=== PATIENT | male | born 1970 | race Caucasian/White ===

== ENCOUNTER 2018-05-06 15:15 | Emergency (ER) | payer MEDICARE, SELFPAY ==
[2018-05-06 15:16] VITALS: BP 155/80; PULSE 93; RESP 15; TEMP 36.7; O2SAT 90; BMI 34.4
[2018-05-06 15:27] VITALS: O2SAT 91
--- NOTE | 2018-05-06 15:42 | RAD_ITS ---
STUDY: X-RAY CHEST REASON FOR EXAM: Male, 48 years old. Shortness of breath TECHNIQUE: Frontal and lateral views of the chest were obtained. COMPARISON: April 15, 2015 FINDINGS: The lungs are adequately aerated. There are patchy airspace opacities in the right lung base. There is no demonstrated pleural abnormality. The cardiac silhouette is normal in size. There is fullness of the right hilum. Normal visualized pulmonary arteries. There is atherosclerotic tortuosity of the thoracic aorta. There are diffuse degenerative changes of the visualized spine. The visualized ribs, clavicles, and shoulders are unremarkable. There is no demonstrated abnormality of the visualized upper abdomen. RAD/Chest PA and Lateral IMPRESSION: There is focal consolidation in the right middle lobe, worrisome for pneumonia. There is no obvious pleural effusion. There is fullness of the right hilum, possible lymph nodes. Electronically Signed: Nicole Garza MD at 16:21 EDT Tel Direct: [phone], Service support ,
--- NOTE | 2018-05-06 15:42 | EKG12_ITS ---
Test Reason : COUGH Blood Pressure : / mmHG Vent. Rate : 082 BPM Atrial Rate : 082 BPM P-R Int : 134 ms QRS Dur : 088 ms QT Int : 406 ms P-R-T Axes : 056 075 059 degrees QTc Int : 474 ms Sinus rhythm with occasional Premature ventricular complexes Otherwise normal ECG Confirmed by FREIDA GOEL, JAMILAH ([id number]), editor news FARIDA BUSTILLO ([id number]) on 05/11/2018 3:41:20 PM Referred By: MANE Confirmed By:JAMILAH GUAN MD
--- NOTE | 2018-05-06 15:45 | ED.VISSUMM ---
- ER Visit Summary Date of Service: 05/06/18 Chief Complaint: Cough and chest cold History of Present Illness: The patient is a 48 M who presents for 2 days of a productive cough and chest cold. Patient has had gradually worsening cough with chest congestion and sweats at home. He is complaining of generalized weakness. He denies any chest pain, overt shortness of breath, abdominal pain, nausea or vomiting, diarrhea, urinary symptoms, myalgias, or other complaints. Patient is tried Tussend and TheraFlu at home without relief. He has a history of pneumonia 3 years ago. He is a heavy smoker. He has a history of schizophrenia but no other medical problems including no coronary artery disease, CHF, COPD, hypertension or diabetes. Physical Examination: Vital signs: afebrile, hemodynamically stable, no hypoxia on room air General: well nourished, well developed, in no distress, speech is slow and slurred (patient's baseline per ) Skin: warm, moist, no rash, no pallor HEENT: normocephalic and atraumatic; PERRL, EOMI, moist mucous membranes Cardiovascular: regular rate and rhythm without murmurs, no peripheral edema, 2+ pulses all distal extremities Respiratory: No increased work of breathing, moist cough, lungs show diffuse inspiratory and expiratory wheezing Abdominal: Abdomen is soft, nontender with normoactive bowel sounds, no guarding or rebound, no masses MSK: Moves all extremities, no deformities, normal strength Neuro: Awake and alert, oriented ?4. No facial droop, sensation and motor function intact and symmetric Test Results: Clinical Impression(s) from Imaging Studies Chest X-Ray 05/06/18 15:42 IMPRESSION: There is focal consolidation in the right middle lobe, worrisome for pneumonia. There is no obvious pleural effusion. There is fullness of the right hilum, possible lymph nodes. Electronically Signed: Nicole Garza MD at 16:21 EDT Tel Direct: [phone], Service support , Medications Given Discontinued Medications Albuterol Sulfate (Ventolin Aerosols) 2.5 mg INHALATION Q20M ALLIE Stop: 05/06/18 16:26 Last Admin: 05/06/18 15:58 Dose: Not Given Admin: 05/06/18 15:58 Dose: 2.5 mg Admin: 05/06/18 15:58 Dose: 2.5 mg Albuterol/Ipratropium (Duoneb) 3 ml INHALATION X1 ONE Stop: 05/06/18 15:43 Last Admin: 05/06/18 15:58 Dose: 3 ml Azithromycin (Zithromax) 500 mg PO X1 ONE Stop: 05/06/18 16:49 Last Admin: 05/06/18 17:08 Dose: 500 mg Sodium Chloride () 1,000 mls @ 999 mls/hr IV .Q1H1M ONE Stop: 05/06/18 16:42 Last Admin: 05/06/18 16:07 Dose: 999 mls/hr Prednisone () 60 mg PO X1 ONE Stop: 05/06/18 15:43 Last Admin: 05/06/18 16:07 Dose: 60 mg Emergency Department Course and Treatment: Patient has a moist cough and diffuse inspiratory and expiratory wheezing. Given his history of very heavy smoking, this may be baseline for him or undiagnosed COPD. Patient was given prednisone and a series of breathing treatments. Chest x-ray performed. Patient had a right middle lobe pneumonia. EKG showed a sinus rhythm without ischemia or ectopy, but did have a prolonged QTc interval. Patient was reevaluated after the breathing treatments and had improvement in his breath sounds. He was satting 92% on room air and felt better. He wanted to go home rather than be admitted for further treatment of pneumonia. He was placed on a prednisone burst, prescribed albuterol inhaler, and placed on azithromycin. He is to return if he is not having improvement at home. Discharged home in improved condition. Treatment Plan: [] Disposition: [] Impression: RML CAP; reactive airway disease with suspicion for undiagnosed COPD This note was generated with [employer] dictation software. It may contain incorrect words, spelling, and punctuation that were not noted in review of the chart prior to signing ED Disposition - Plan for ED Patient: Disposition: Home or Assisted Living Chief Complaint: Cough Instructions: ED Reactive Airway Disease, ED Pneumonia Adult Prescriptions: RX: Albuterol Inhaler [Ventolin Hfa] 2 puff INHALATION Q4H PRN PRN #1 inhaler PRN Reason: Wheezing RX: Azithromycin [Zithromax] 250 mg PO DAILY #4 tab RX: Prednisone [Deltasone] 40 mg PO DAILY #10 tab Referrals: Care Physician,No Primary [Primary Care Provider] - Doctor,Your [STAFF PHYSICIAN] - 3-5 Days if not improving Additional Instructions: Take the antibiotic as prescribed, with the first dose tomorrow. Take the prednisone starting tomorrow as well. Use the albuterol inhaler as needed for wheezing. If you are not having improvement at home, or if you have worsening shortness of breath, fever, or any other concerns, return immediately to the emergency department for another evaluation.
[2018-05-06] MEDS: Ipratropium/Albuterol Sulfate 3 ML AMPUL.NEB INHALATION (15:58)
[2018-05-06] MEDS: Albuterol 2.5 MG/3 ML VIAL.NEB. INHALATION ×2 (15:58)
[2018-05-06 15:59] VITALS: PULSE 83; RESP 21
[2018-05-06] MEDS: 0.9% Normal Saline 1,000 ML 999 ML IV (16:07)
[2018-05-06] MEDS: predniSONE 20 MG Tablet 60 MG PO (16:07)
--- NOTE | 2018-05-06 16:26 | ED.DCSUM_ITS ---
- ER Visit Summary Date of Service: 05/06/18 Chief Complaint: Cough and chest cold History of Present Illness: The patient is a 48 M who presents for 2 days of a productive cough and chest cold. Patient has had gradually worsening cough with chest congestion and sweats at home. He is complaining of generalized weakness. He denies any chest pain, overt shortness of breath, abdominal pain, nausea or vomiting, diarrhea, urinary symptoms, myalgias, or other complaints. Patient is tried Tussend and TheraFlu at home without relief. He has a history of pneumonia 3 years ago. He is a heavy smoker. He has a history of schizophrenia but no other medical problems including no coronary artery disease , CHF, COPD, hypertension or diabetes. Physical Examination: Vital signs: afebrile, hemodynamically stable, no hypoxia on room air General: well nourished, well developed, in no distress, speech is slow and slurred (patient's baseline per ) Skin: warm, moist, no rash, no pallor HEENT: normocephalic and atraumatic; PERRL, EOMI, moist mucous membranes Cardiovascular: regular rate and rhythm without murmurs, no peripheral edema, 2+ pulses all distal extremities Respiratory: No increased work of breathing, moist cough, lungs show diffuse inspiratory and expiratory wheezing Abdominal: Abdomen is soft, nontender with normoactive bowel sounds, no guarding or rebound, no masses MSK: Moves all extremities, no deformities, normal strength Neuro: Awake and alert, oriented ?4. No facial droop, sensation and motor function intact and symmetric Test Results: Clinical Impression(s) from Imaging Studies Chest X-Ray 05/06/18 15:42 IMPRESSION: There is focal consolidation in the right middle lobe, worrisome for pneumonia. There is no obvious pleural effusion. There is fullness of the right hilum, possible lymph nodes. Electronically Signed: Nicole Garza MD at 16:21 EDT Tel Direct: [phone], Service support , Medications Given Discontinued Medications Albuterol Sulfate (Ventolin Aerosols) 2.5 mg INHALATION Q20M ALLIE Stop: 05/06/18 16:26 Last Admin: 05/06/18 15:58 Dose: Not Given Admin: 05/06/18 15:58 Dose: 2.5 mg Admin: 05/06/18 15:58 Dose: 2.5 mg Albuterol/Ipratropium (Duoneb) 3 ml INHALATION X1 ONE Stop: 05/06/18 15:43 Last Admin: 05/06/18 15:58 Dose: 3 ml Azithromycin (Zithromax) 500 mg PO X1 ONE Stop: 05/06/18 16:49 Last Admin: 05/06/18 17:08 Dose: 500 mg Sodium Chloride () 1,000 mls @ 999 mls/hr IV .Q1H1M ONE Stop: 05/06/18 16:42 Last Admin: 05/06/18 16:07 Dose: 999 mls/hr Prednisone () 60 mg PO X1 ONE Stop: 05/06/18 15:43 Last Admin: 05/06/18 16:07 Dose: 60 mg Emergency Department Course and Treatment: Patient has a moist cough and diffuse inspiratory and expiratory wheezing. Given his history of very heavy smoking, this may be baseline for him or undiagnosed COPD. Patient was given prednisone and a series of breathing treatments. Chest x-ray performed. Patient had a right middle lobe pneumonia. EKG showed a sinus rhythm without ischemia or ectopy, but did have a prolonged QTc interval. Patient was reevaluated after the breathing treatments and had improvement in his breath sounds. He was satting 92% on room air and felt better. He wanted to go home rather than be admitted for further treatment of pneumonia. He was placed on a prednisone burst, prescribed albuterol inhaler, and placed on azithromycin. He is to return if he is not having improvement at home. Discharged home in improved condition. Treatment Plan: [] Disposition: [] Impression: RML CAP; reactive airway disease with suspicion for undiagnosed COPD This note was generated with [employer] dictation software. It may contain incorrect words, spelling, and punctuation that were not noted in review of the chart prior to signing ED Disposition - Plan for ED Patient: Disposition: Home or Assisted Living Chief Complaint: Cough Instructions: ED Reactive Airway Disease, ED Pneumonia Adult Prescriptions: RX: Albuterol Inhaler [Ventolin Hfa] 2 puff INHALATION Q4H PRN PRN #1 inhaler PRN Reason: Wheezing RX: Azithromycin [Zithromax] 250 mg PO DAILY #4 tab RX: Prednisone [Deltasone] 40 mg PO DAILY #10 tab Referrals: Care Physician,No Primary [Primary Care Provider] - Doctor,Your [STAFF PHYSICIAN] - 3-5 Days if not improving Additional Instructions: Take the antibiotic as prescribed, with the first dose tomorrow. Take the prednisone starting tomorrow as well. Use the albuterol inhaler as needed for wheezing. If you are not having improvement at home, or if you have worsening shortness of breath, fever, or any other concerns, return immediately to the e mergency department for another evaluation.
--- NOTE | 2018-05-06 16:53 | ED.DEP ---
ED Disposition - Plan for ED Patient: Disposition: Home or Assisted Living Chief Complaint: Cough Instructions: ED Reactive Airway Disease, ED Pneumonia Adult Prescriptions: Albuterol Inhaler [Ventolin Hfa] 2 puff INHALATION Q4H PRN PRN #1 inhaler PRN Reason: Wheezing Azithromycin [Zithromax] 250 mg PO DAILY #4 tab Prednisone [Deltasone] 40 mg PO DAILY #10 tab Referrals: Care Physician,No Primary [Primary Care Provider] - Doctor,Your [STAFF PHYSICIAN] - 3-5 Days if not improving Additional Instructions: Take the antibiotic as prescribed, with the first dose tomorrow. Take the prednisone starting tomorrow as well. Use the albuterol inhaler as needed for wheezing. If you are not having improvement at home, or if you have worsening shortness of breath, fever, or any other concerns, return immediately to the emergency department for another evaluation.
[2018-05-06 16:54] VITALS: BP 173/83; PULSE 80; RESP 24; O2SAT 92
[2018-05-06] MEDS: Azithromycin 250 MG Tablet 500 MG PO (17:08)
--- NOTE | 2018-05-07 10:23 | CM.ED ---
ED CALLBACK: Follow-up call placed to patient with no answer. No option for voicemail. Will reattempt call as time allows.
== END 2018-05-06 17:09 | disposition home or self-care (01) ==
PROVIDERS: Emergency Provider Emergency Medicine
DX: J18.9 Pneumonia, unspecified organism (principal); J45.909 Unspecified asthma, uncomplicated; E66.9 Obesity, unspecified; F20.9 Schizophrenia, unspecified; Z79.899 Other long term (current) drug therapy; Z72.0 Tobacco use
CPT/HCPCS: 71046; 93005; 94640; 96360; 99285; J7030; A4216

== ENCOUNTER 2020-03-22 15:56 | Inpatient (IN) | payer MEDICARE, SELFPAY ==
[2020-03-22] VITALS (25 sets, daily range): BP systolic 92–192; BP diastolic 44–119; PULSE 54–106; RESP 12–34; TEMP 36.7–37.5; O2SAT 86–100; BMI 42.5; BMI 48.8
--- NOTE | 2020-03-22 16:03 | EKG12_ITS ---
Test Reason : SOB Blood Pressure : / mmHG Vent. Rate : 108 BPM Atrial Rate : 108 BPM P-R Int : 138 ms QRS Dur : 094 ms QT Int : 344 ms P-R-T Axes : 072 136 029 degrees QTc Int : 460 ms Sinus tachycardia Right atrial enlargement Right axis deviation Pulmonary disease pattern Incomplete right bundle branch block Right ventricular hypertrophy Abnormal ECG Confirmed by MIRA GOEL, LIZZETH ([id number]), book editor DENNY HANEY ([id number]) on 03/24/2020 11:29:26 A M Referred By: GENIA Confirmed By:MELISSA MEYERS MD
[2020-03-22] MEDS: Ipratropium/Albuterol Sulfate 3 ML AMPUL.NEB INHALATION ×2 (16:24→23:47)
[2020-03-22] MEDS: LORazepam 2 MG/ML Syringe IV (16:30)
[2020-03-22] MEDS: MethylPREDNISolone 125 MG/2 ML Vial IV (16:30)
[2020-03-22 16:44] LABS: Absolute Lymphocyte Count 1.38 X10^3/uL (0.83-4.51); Absolute Neutrophil Count 8.6 X10^3/uL (2.0-7.7); Basophil# 0.03 X10^3/uL; Basophil% 0.3 % (0-1); Eosinophil# 0.17 X10^3/uL; Eosinophils% 1.5 % (0-5); Hematocrit 51.6 % (40-54); Hemoglobin 17.5 g/dL (13.0-16.5); Lymphocyte # 1.38 X10^3/ul (4.0); Mean Corp Hgb Conc 33.9 g/dL (32-36); Mean Corpuscular Hgb 32.3 pg (27.0-32.0); Mean Corpuscular Volume 95.4 fL (80-94); Mean Platelet Vol. 9.7 fl (6.2-12.0); Monocyte# 1.24 X10^3/uL; Monocyte% 10.8 % (0-10); NRBC Flagged by Analyzer 0 % (0-5); Neutrophil # 8.61 X10^3/uL (2.7-7.7); Neutrophil % 75.1 % (47-70); Platelet Count 327 K/mm3 (150-450); RBC Distribution Width CV 14.2 % (11.6-14.6); RBC Distribution Width SD 50.2 fl (35.1-43.9); Red Blood Count 5.41 M/mm3 (4.6-6.2); White Blood Count 11.5 K/mm3 (4.4-11.0)
--- NOTE | 2020-03-22 16:50 | RAD_ITS ---
STUDY: X-RAY CHEST REASON FOR EXAM: Male, 49 years old. DIFFICULTY BREATHING FOR 2 WEEKS, AUDIBLE WHEEZING TECHNIQUE: Single AP portable view of the chest. COMPARISON: 05/06/2018. FINDINGS: No pleural effusion or pulmonary consolidation. There is mild central pulmonary venous congestion. There is mild cardiac enlargement. Normal mediastinum and belkis. Soft tissues and bony structures are unremarkable. RAD/Chest 1 View (Portable) IMPRESSION: Mild pulmonary venous congestion. Cardiac enlargement. Electronically Signed: Isabella Castrejon MD at 17:39 EDT Tel , Service support ,
[2020-03-22 16:57] LABS: Alcohol, Blood (Medical)-Serum < 3.0 mg/dL
[2020-03-22 16:59] LABS: ALB/GLOB Ratio 0.8 RATIO (0.9-2.4); AST(SGOT) 18 U/L (15-37); Alanine Aminotransfer ALT/SGPT 16 U/L (16-61); Albumin, Serum 3.2 g/dL (3.2-5.0); Alkaline Phosphatase 92 U/L (45-117); Anion Gap 4 (5-15); BUN 6 mg/dL (7-18); BUN/Creat Ratio 10.4 RATIO (10-20); Calcium,Total 8.2 mg/dL (8.5-10.1); Chloride 84 mmol/L (98-107); Creatinine, Serum 0.58 mg/dL (0.70-1.30); EST Glomerular Filtration Rate 159 mL/min (>60); Est Glom Filt Rate - Afr Amer 192 mL/min (>60); Estimated Creatinine Clearance 164.09 ml/min; Globulin 4.2 g/dL (2.2-4.2); Glucose 132 mg/dL (74-106); Potassium 4.3 mmol/L (3.5-5.1); Protein, Total 7.4 g/dL (6.4-8.2); Sodium Level 124 mmol/L (136-145)
[2020-03-22 17:00] LABS: Allen Test Positive; Base Excess 11 mmol/L (-2 to +2); Bicarbonate 38.5 mmol/L (22-26); Blood Gas Specimen Type ART; FI02 55; O2 Delivery Device BiPAP; PO2 60 mmHG (75-100); SITE R Radial; SO2 83 % (95-99); Total Carbon Dioxide 41 mmol/L; pCO2 93.5 mmHg (35-45); pH 7.22 (7.35-7.45)
[2020-03-22 17:03] LABS: Lactic Acid 1.6 mmol/L (0.4-1.9)
[2020-03-22 17:10] LABS: Phenytoin (Dilantin) Level < 0.4 mL (10.0-20.0)
[2020-03-22 17:17] LABS: Bacteria 0 SEEN /hpf (None Seen); Mucous, Urine 0 SEEN /hpf (<or=2+); Red Blood Cells-Urine 0 SEEN /hpf (0-5); Squamous Epithelial Cells - UA 0 SEEN /hpf (0-5); White Blood Cells 0 SEEN /hpf (0-5)
--- NOTE | 2020-03-22 17:17 | ED.DCSUM_ITS ---
- ER Visit Summary Date of Service: 03/22/20 Chief Complaint: Altered mental status History of Present Illness: The patient is a 49 M who presents by EMS for altered mental status. History was obtained from family and from EMS as the patient is confused. He has been short of breath for the past week and would not go to a doctor. He is a heavy smoker and has a history of pneumonia. No recent chest pain complaints. No known history of blood clots. No alcohol or regular drug use. He does have a history of schizophrenia and seizures. Takes Dilantin among his other medications. Physical Examination: Afebrile. Heart rate 106, blood pressure 167/85, pulse ox 86% on nasal cannula. Patient is alert and will track me with his eyes, but when I asked him his name, he only mumbles. He does not seem to follow commands reliably. Head and neck atraumatic. Heart tachycardic but regular. Lungs diminished in all campuzano. Abdomen soft and nontender. Extremities nontender with no significant edema. Skin appears normal. Test Results: EKG shows sinus rhythm at a rate of 108. No sign of ischemia or infarction pattern. White count 11.5, hemoglobin 17.5, sodium 124, chloride 84, CO2 36, glucose 132, BUN 6, creatinine 0.58. Coags pending. Urinalysis pending. Troponin negative. Lactate 1.6. Cultures pending. COVID-19 test pending. pH 7.22, CO2 93.5, O2 60. Dilantin level is subtherapeutic. Alcohol negative. Tox screen is pending. Chest x-ray official read is pending. He appears to have chronic changes, cardiomegaly, and congestion. No definite infiltrate, but it is difficult to interpret. Emergency Department Course and Treatment: Patient was placed on a monitor. IV access established. He is hypoxic on nonrebreather. His mental status is borderline, but he seems to improve with reassurance. Will try BiPAP given the risks associated with intubation. Patient was also placed in soft restraints and treated with Ativan 2 mg IV. He seemed to tolerate the BiPAP well. His pulse ox was in the mid 90s. He was calm and comfortable with the BiPAP. He received Solu-Medrol and a breathing treatment and is resting comfortably on the monitor. He is hypertensive but otherwise his vitals have improved. Patient is acidotic. Will increase his BiPAP settings and recheck ABG in 30 minutes. After discussion with the hospitalist, if his numbers are improving, we will continue BiPAP. If he is not improving or worsening, he will need intubation. This was discussed with the family. We will cover him with azithromycin and Rocephin. Patient will be admitted to the ICU pending results of the repeat ABG. Repeat blood gas was slightly worse. After discussion with the hospitalist, the patient will be intubated in the ED. He also received a dose of Lasix. Patient was treated with etomidate and succinylcholine. On my first attempt with the glide scope, I could not pass the ET tube through the cords. I tried a second attempt with a glide scope and a smaller 7.0 tube, but was unsuccessful. I called Dr. Cheney for assistance. She attempted with direct visualization, but was unsuccessful. Second attempt by Dr. Cheney using the glide scope was successful. Quiet stomach, bilateral breath sounds, good color change. Confirmatory x-ray pending. Patient admitted to ICU. Treatment Plan: As above Disposition: Admit to ICU Impression: Hypoxic respiratory failure, sepsis, pneumonia, hyponatremia This note was generated with [employer] dictation software. It may contain incorrect words, spelling, and punctuation that were not noted in review of the chart prior to signing ED Disposition - Plan for ED Patient:
[2020-03-22 17:20] LABS: Color, Urine Yellow (Yellow); Glucose, Dipstick Normal (Normal); Ketone-Dipstick 15 mg/dl (Negative); Leukocyte Esterase-Dipstick 25 /ul (Negative); Nitrite-Dipstick Negative (Negative); Occult Blood-Urine 10 /ul (Negative); Protein-Dipstick 100 mg/dl (Negative); Specific Gravity, Urine 1.015 (1.002-1.030); Urine Bilirubin Dipstick Negative (Negative); Urine Clarity Clear (Clear); Urine Urobilinogen 4 mg/dl (Normal); Urine pH 6.5 (5.0 - 8.0)
[2020-03-22 17:29] LABS: Probe Check PASS; Specimen Processing Control PASS
--- NOTE | 2020-03-22 17:29 | HP.PCM_ITS ---
Problem List (1) Respiratory failure with hypoxia and hypercapnia Status: Acute Qualifiers: Chronicity: acute Qualified Code(s): J96.01 - Acute respiratory failure with hypoxia; J96.02 - Acute respiratory failure with hypercapnia (2) Acute exacerbation of CHF (congestive heart failure) Status: Acute Qualifiers: Heart failure type: unspecified Qualified Code(s): I50.9 - Heart failure, unspecified (3) COPD exacerbation Status: Acute (4) Hyponatremia Status: Acute (5) Elevated BP without diagnosis of hypertension Status: Acute (6) Hyperglycemia Status: Acute (7) Morbid obesity Status: Chronic (8) Schizophrenia Status: Chronic Qualifiers: Schizophrenia type: unspecified Qualified Code(s): F20.9 - Schizophrenia, unspecified History of Present Illness Date of Admission: 03/22/20 Chief Complaint: Dyspnea, respiratory failure The patient is a 49 y/o M w/ PMHx: Schizophrenia (visual hallucinations, not severe, no marked paranoia), Morbid Obesity, Heavy Tobacco use with suspected Chronic COPD who presents to the [facility] ED on 03/22/20 with history of ongoing dyspnea for several weeks to months per spouse report with fatigue and specifically also exertional dyspnea but no specific chest discomfort or pain however more severe the last 48 hours even prompting patient to primarily attempt asleep in front of a fan secondary to the severity of dyspnea complaint with ongoing unchanged cough with no productive sputum and no fever, chills, nausea, emesis, diarrhea, abdominal pain, body aches, headaches, sore throat associated. Patient does have orthopnea per her report. Patient has not sig nificantly had weight gain but does not weigh himself. Patient with no specific increased lower extremity edema. Patient history given per spouse given patient lethargy and currently BiPAP in place. Work-up in the ED included T 98.4, HR 106, BP 167/85, RR 18, 86% on 6L NC, CBC w/ WBC 11.5, Hgb 17.5, Plts 327 with L shift, pending coags, ABG initial pH 7.22, Bicarb 38.5, O2 saturation 83, pCO2 93.5, BIPAP 12, CMP with Na 124, Chl 84, CO2 36, BUN/Cr 6/0.58, glucose 132, LA 1.6, unremarkable hepatic profile, troponin 0.039, UA unremarkable, UDS pending, phenytoin <0.4, EtOH < 3.0, COVID negative, Bld Cx x 2, UCx pending per ED, CXR with mild pulmonary venous congestion, cardiac enlargement. In the ED patient administered Rocephin, azithromycin, DuoNeb and albuterol therapy, Ativan 2 mg IV x1 secondary to agitation, Solu-Medrol 125 mg IV x1. Discussed patient case with the ED physician and will await repeat ABG and if worsen would plan intubation prior to transition to the ICU. Also discussed with ED physician concern for heart failure therefore Lasix 40 mg IV x1 administered. Past Medical History Past Medical History (Chronic Problems): Chronic Problems Morbid obesity (Chronic) Tobacco use (Chronic) Schizophrenia (Chronic) Allergies No Known Allergies Allergy (Verified 04/12/15 13:59) Home Medications: Ambulatory Orders Medication Instructions Recorded ALPRAZolam [Xanax] 0.5 mg PO BID PRN 03/09/15 Benztropine Mesylate 1 mg PO BID 03/22/20 Divalproex Sodium [Divalproex 1,000 mg PO BID 03/22/20 Sodium ER] Guaifenesin [Mucinex] 600 mg PO BID 03/22/20 Haloperidol 10 mg PO BID 03/22/20 Surgical History: - - Patient's denies patient ever having had any surgical interventions. Psychiatric History: Anxiety, Schizophrenia Lives: Spouse/ Significant Other Smoking Status: Current every day smoker - 1 pack/day cigarette tobacco usage although sometimes cigars the equivalent of 1 pack of cigarettes in addition to pipe tobacco smoking in between. Tobacco Use: Cigarettes, Cigars, Pipe Alcohol: None Drugs: None - *Family History Paternal History Items: - - Patient's denies any market maternal or paternal family history including heart disease, diabetes or cancer but states that the history is primarily unknown. Maternal History Items: - - Patient's denies any market maternal or paternal family history including heart disease, diabetes or cancer but states that the history is primarily unknown. Review of Systems Constitutional: Reports: Malaise, Weakness, Fatigue. Denies: Anorexia, Chills, Fever, Weight Change HEENT: Denies: Head Aches, Sinus Congestion, Sinus Drainage Cardiovascular: Reports: Orthopnea. Denies: Chest Pain, Chest Pressure, Chest Tightness, Heaviness, Light Headedness, Palpitations, Syncope Respiratory: Reports: Cough, Shortness of Breath, Shortness of breath at rest, Shortness of breath upon exertion, Wheezing - Occasional wheezing per spouse, chronically, possibly mildly increased recently.. Denies: Sputum production Gastrointestinal: Reports: Constipation. Denies: Abdominal Pain, Nausea, Vomiting Genitourinary: Denies: Dysuria Musculoskeletal: Reports: Back Pain. Denies: Joint Pain, Joint Tenderness Skin: Denies: Rash, Wounds Neurological: Denies: Numbness, Tingling, Focal weakness Psychiatric: Reports: - - Schizophrenia.. Denies: Anxiety, Depression, Homicidal Ideations, Suicidal Ideations Hematologic/ Lymphatic: Denies: Easy Bruising, Easy Bleeding VTE Information - Inpt Only VTE Present on Admission: No VTE Mechan Device Prophylaxis: SCD's VTE Pharm Prophylaxis ordered?: Yes Patient Problems: Active and Suspected Problems Respiratory failure with hypoxia and hypercapnia (Acute) Acute exacerbation of CHF (congestive heart failure) (Acute) COPD exacerbation (Acute) Hyponatremia (Acute) Elevated BP without diagnosis of hypertension (Acute) Hyperglycemia (Acute) Subjective: Patient seated upright in the ED bed, lethargic, BiPAP in place, still ongoing increased respiratory rate. Objective: Physical Examination: General: Patient very lethargic, sedate, not awakening but recent sedate of medications given secondary to anxiety with BiPAP, unable to answer orientation questions, seated upright in the ED bed, still evidence of increased respiratory rate and accessory muscle usage. Skin: normal color, turgor, no icterus, cyanosis. HEENT: AT/NC, EOM unable to be assessed given lethargy, PERRLA, dry MM, BiPAP in place, no carotid bruits, difficult to assess JVD secondary to very thickened neck and habitus. Lungs: Severely diffusely diminished breath sounds, increased respiratory rate, some accessory muscle usage, BiPAP in place, currently unable to discern any rales, rhonchi or wheezing but very distant and poor aeration. Heart: Tachycardic with regular rhythm; no gallop, rub audible. Abdomen: soft, morbidly obese, NTTP, ND, normal BS, unable to discern HSM secondary to habitus. Extremities: no cyanosis, clubbing, bilateral lower extremity ankle and pedal nonpitting edema. Neurological: Patient very lethargic, sedate, not awakening but recent sedate of medications given secondary to anxiety with BiPAP, unable to answer orientation questions, seated upright in the ED bed, still evidence of increased respiratory rate and accessory muscle usage; cognitive function not baseline intact; pupils equally reactive to light and accomodation; cranial nerves unable to be assessed well secondary to lethargic status, some movement of extremities with painful stimuli but very sedate, strength severely global decrease. Psychiatric: affect appears good, evidence of distress as noted, no acute evidence of depressive or anxiety feelings, although was anxious prior with BiPAP per ED report. - Physical Exam Vitals/I&O's: Vital Signs Temp Pulse Resp BP Pulse Ox 98.4 F 97 32 H 174/104 H 96 03/22/20 15:58 03/22/20 17:15 03/22/20 17:15 03/22/20 17:13 03/22/20 17:15 Oxygen Flow Rate (L/min) 6 Oxygen Delivery Method Bi-pap Weight: 304 lb 10.861 oz Body Mass Index (BMI) 42.5 Finger Stick Blood Glucose 115 Laboratory Results 03/22/20 16:15: WBC 11.5 H, RBC 5.41, Hgb 17.5 H, Hct 51.6, MCV 95.4 H, MCH 32.3 H, MCHC 33.9, RDW Std Deviation 50.2 H, RDW Coeff of Dix[place] 14.2, Plt Count 327, MPV 9.7, Immature Gran % (Auto) 0.300, Neut % (Auto) 75.1 H, Lymph % (Auto) 12.0 L, [place] % (Auto) 10.8 H, Eos % (Auto) 1.5, Baso % (Auto) 0.3, Absolute Neuts (auto) 8.6 H, Absolute Lymphs (auto) 1.38, Nucleated RBC % 0 03/22/20 16:15: PT Pending, INR Pending, APTT Pending 03/22/20 16:15: Sodium 124 L, Potassium 4.3, Chloride 84 L, Carbon Dioxide 36.0 H, Anion Gap 4 L, BUN 6 L, Creatinine 0.58 L, Estim Creat Clear Calc 164.09, Est GFR (MDRD) Af Amer 192, Est GFR (MDRD) Non-Af 159, BUN/Creatinine Ratio 10.4, Glucose 132 H, Calcium 8.2 L, Total Bilirubin 0.80, AST 18, ALT 16, Alkaline Phosphatase 92, Troponin I 0.039, Total Protein 7.4, Albumin 3.2, Globulin 4.2, Albumin/Globulin Ratio 0.8 L 03/22/20 16:15: Lactic Acid 1.6 03/22/20 16:15: Ethyl Alcohol < 3.0 03/22/20 16:15: Phenytoin < 0.4 L 03/22/20 16:21: COVID-19 (DAVEY) Pending 03/22/20 16:51: Specimen Type ART, Sample Site R Radial, pH 7.22 L, Bicarbonate Actual 38.5 H, Total CO2 41, Base Excess 11 H, O2 Saturation 83 L, O2 % 55, ABG pCO2 93.5 H*, ABG pO2 60 L, Juan Test Positive, Respiration Rate 12.0000, O2 Delivery Device BiPAP 03/22/20 17:10: Urine Opiates Screen Pending, Urine Methadone Screen Pending, Ur Barbiturates Screen Pending, Ur Phencyclidine Scrn Pending, Ur Amphetamines Screen Pending, U Methamphetamin-MDMA Pending, U Benzodiazepines Scrn Pending, Urine Cocaine Screen Pending, U Cannabinoids Screen Pending, Ur Drug Screen Comment 03/22/20 17:10: Urine Color Yellow, Urine Clarity Clear, Urine pH 6.5, Ur Spe cific [place] 1.015, Urine Protein 100 H, Urine Glucose (UA) Normal, Urine Ketones 15 H, Urine Occult Blood 10 H, Urine Nitrite Negative, Urine Bilirubin Negative, Urine Urobilinogen 4 H, Ur Leukocyte Esterase 25 H, Urine RBC 0 SEEN, Urine WBC 0 SEEN, Ur Squamous Epith Cells 0 SEEN, Urine Bacteria 0 SEEN, Urine Mucus 0 SEEN Current Medications Azithromycin 500 mg/ Dextrose 255 mls @ 250 mls/hr IV X1 ONE Stop: 03/22/20 18:23 Ceftriaxone Sodium (Rocephin) 1 gm in 50 mls @ 100 mls/hr IV X1 ONE Stop: 03/22/20 17:51 Assessment/Plan All Active Problems Respiratory failure with hypoxia and hypercapnia (Acute) Acute exacerbation of CHF (congestive heart failure) (Acute) COPD exacerbation (Acute) Hyponatremia (Acute) Elevated BP without diagnosis of hypertension (Acute) Hyperglycemia (Acute) Troponin I above reference range (Acute) The patient is a 49 y/o M w/ PMHx: Schizophrenia (visual hallucinations, not severe, no marked paranoia), Morbid Obesity, Heavy Tobacco use with suspected Chronic COPD who presents to the [facility] ED on 03/22/20 with history of ongoing dyspnea for several weeks to months per spouse report with fatigue and specifically also exertional dyspnea but no specific chest discomfort or pain however more severe the last 48 hours even prompting patient to primarily attempt asleep in front of a fan secondary to the severity of dyspnea complaint with ongoing unchanged cough with no productive sputum and no fever, chills. 1. Acute Hypoxic Respiratory Failure, Suspected Multifactorial, Suspected New onset Acute Decompensated CHF, Unclear Type and possible Acute on suspected Chronic COPD Exacerbation, Possible PNA: Given presentation, history of ongoing worsening dyspnea for several weeks, needs to even lay in front of fan, non- productive cough, exertional dyspnea concern for failure component, BNP and procalcitonin requested. Will admit to the ICU, maintain on BIPAP if appropriate however repeat ABG pending and if worsening status would plan intubation with initiation of sedated regimen, repeat ABGs as needed, maintain on cardiac telemetry, obtain cardiac enzyme series, obtain serial EKGs, initiate IV lasix diuresis, monitor I/Os, maintain on intake restriction, continue medical therapy w/ asa, statin, BB, ACEI. Will obtain FLP in AM. Will obtain TSH and magnesium level. Will obtain ECHO. Concurrently given unclear specific etiology and possibly multifactorial, will continue ATC duonebs, PRN albuterol, solumedrol, Rocephin and Azithromycin, HOB, IS parameters w/ requested sputum cultures and urine antigens. Bld cx x 2 obtained in the ED. Plan repeat CXR in AM following diuresis. 2. Elevated BP without hypertensive diagnosis: Likely contributing to #1, will initiate on beta-biju and COLIN inhibitor given suspected underlying failure although will be cautious with beta-biju given suspect also likely underlying COPD given severe tobacco use history, PRN IV hydralazine 3. Acute Hyponatremia, Suspect Hypervolemic secondary to #1: Admission Na 124, unclear baseline, will continue diuresis and trend BMP, will obtain UOsm, FeNa concurrently. 4. Hyperglycemia: Glucose 132, will obtain HgbA1c. 5. Morbid Obesity: Weight loss and lifestyle changes encouraged, nutrition consulted. 6. Schizophrenia: We will continue patient's home haloperidol, Depakote, benztropine and Xanax regimen. Per discussion with spouse patient does have visual hallucinations, normally of people and sometimes believes that he is other people however he has never been violent or aggressive per her report nor has he been catatonic or severely paranoid. 7. DVT prophylaxis: SCDs, Lovenox. 8. CODE status: Patient does not have healthcare power of corporate associate attorney nor living will. Patient's is very interested in assistance in setting these up [employer] getting information therefore discussed plan to have her talk with case management/social work. Discussed CODE status at length including difference between FULL code, DNR-CCA and DNR-CC status. Following discussions about the differences in these status, requested full CODE STATUS per spouse given patient inability. Advanced Care Planning Face to Face Time: 16 minutes. Inpatient E&M: 99145 Init Hosp L3 Procedures: 46514 Advncd Care Plan 30 Min
--- NOTE | 2020-03-22 17:31 | CPS ---
Critical value given to Dr. Dumont at 1700
[2020-03-22 17:32] LABS: International Normalized Ratio 1.2; Partial Thromboplast Time 30.7 Seconds (24.1-36.2); Prothrombin Time (Protime)PT. 14.2 SECONDS (11.7-14.9)
[2020-03-22 17:33] LABS: Amphetamine Urine VISTA NEGATIVE (<1000 ng/mL); Barbiturate Urine VISTA NEGATIVE (< 200 ng/mL); Benzodiazepine Urine VISTA POSITIVE (< 200 ng/mL); Cocaine Urine VISTA NEGATIVE (< 300 ng/mL); Ecstacy Urine VISTA NEGATIVE (< 500 ng/mL); Methadone Urine VISTA NEGATIVE (< 300 ng/mL); PCP Urine VISTA NEGATIVE (< 25 ng/mL); THC Urine VISTA NEGATIVE (< 50 ng/mL); Vista UDS pH Range 6
[2020-03-22] MEDS: Ceftriaxone 1 GM/50 ML BAG IV (17:48)
--- NOTE | 2020-03-22 18:05 | NURSING ---
ICU WHITE RESP FAILURE, SEPSIS
--- NOTE | 2020-03-22 18:19 | NURSING ---
ICU 3
[2020-03-22 18:21] LABS: Allen Test Positive; Base Excess 12 mmol/L (-2 to +2); Bicarbonate 39.8 mmol/L (22-26); Blood Gas Specimen Type ART; FI02 55; O2 Delivery Device BiPAP; PO2 78 mmHG (75-100); SITE R Radial; SO2 90 % (95-99); Total Carbon Dioxide 43 mmol/L; pCO2 102.8 mmHg (35-45)
--- NOTE | 2020-03-22 18:33 | CPS ---
critical values called to at 1820
[2020-03-22] MEDS: Etomidate 20 MG/10 ML Vial 25 MG IV (18:46)
[2020-03-22] MEDS: Succinylcholine Chloride 200 MG/10 ML Vial 150 MG IV (18:49)
[2020-03-22 18:52] LABS: Procalcitonin 0.09 ng/mL (0.00-0.09)
--- NOTE | 2020-03-22 19:00 | CM.ED ---
Social Work Consult: Support Informant: Self Referral Patient being intubated. This social work faculty member met with patient spouse, Lawanda. Maple states that patient is a good man. Maple presenting with pleasant affect and reports to understand what is happening. Maple states that patient has a history of schizophrenia and smokes all the time. Maple states that patient believes that smoking is how patient breathes. 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 Support provided. Omid DAVISON, AQUILES
[2020-03-22] MEDS: Furosemide 40 MG/4 ML Vial IV ×2 (19:04→20:46)
[2020-03-22] MEDS: Propofol 10MG/Ml 1,000 MG/100 ML Bottle 8.3 MG CONT INF ×2 (19:15→20:46)
--- NOTE | 2020-03-22 19:23 | RAD_ITS ---
STUDY: X-RAY CHEST REASON FOR EXAM: Male, 49 years old. et tube and og tube placement TECHNIQUE: Single AP portable view of the chest. COMPARISON: 4:47 PM. FINDINGS: ET tube terminates 1.3 cm above the lauren. Nasogastric tube traverses the thorax. Terminus is excluded from the [id number]. The lungs are clear and expanded. There is no demonstrated pleural abnormality. There is mild cardiac enlargement. Hilar and mediastinal shadows are unremarkable. RAD/Chest 1 View (Portable) IMPRESSION: 1. Tube positions as described above. 2. Cardiac enlargement. Electronically Signed: Isabella Castrejon MD at 20:24 EDT Tel , Service support ,
--- NOTE | 2020-03-22 19:50 | ECHOCS_ITS ---
Reason For Study: ARRHYTHMIA Procedure This was a 2D Doppler, Color Flow transthoracic echocardiogram. Exam performed portable in patient room. Left Ventricle Normal LV size. The estimated ejection fraction is 60 %. No evidence for diastolic dysfunction. No regional wall motion abnormalities noted. Right Ventricle Normal right ventricle. Normal systolic function. Atria Normal left atrium. Normal right atrium. No doppler evidence for ASD. Mitral Valve There is no mitral valve stenosis. No mitral valve insufficiency. Tricuspid Valve There is no tricuspid stenosis. Trivial tricuspid valve insufficiency. Unable to estimate RV systolic pressure due to insufficient tricuspid regurgitant envelope. Aortic Valve The aortic valve is not well visualized. There is no aortic stenosis. No aortic valve insufficiency. Pulmonic Valve There is no pulmonic valvular stenosis. No pulmonic valve insufficiency. Great Vessels Normal aortic root. Pericardium/Pleural No pericardial effusion. MMode/2D Measurements & Calculations LVIDd: 5.1 cm IVSd: 1.3 cm LAV(MOD-bp): 139.9 ml LVIDs: 3.3 cm LVPWd: 1.3 cm LAV(MOD-bp) Indexed: 55.7 ml/m2 FS: 35.7 % LAV(MOD-sp2): 124.9 ml LAV(MOD-sp4): 155.3 ml LA A4 area: 37.3 cm2 RA A4 area: 27.9 cm2 Time Measurements MV dec time: 0.18 sec Doppler Measurements & Calculations MV E max victor manuel: 80.0 cm/sec Lat Peak E' Victor Manuel: 9.9 cm/sec Med Peak E' Victor Manuel: 8.5 cm/sec MV A max victor manuel: 83.6 cm/sec E/E' lat: 8.1 E/E' med: 9.4 MV E/A: 0.96 Ao V2 max: 129.4 cm/sec Ao max P.7 mmHg Interpretation Summary The estimated ejection fraction is 60 %. No evidence for diastolic dysfunction. The study was technically difficult. Contrast injection was performed. Ordering Physician: Tiffanie Brooks Referring Physician: JEO PCP Performed By: Marilee Gerardo RDCS, RVT
[2020-03-22 20:30] LABS: Urine Sodium 47 mmol/L (Not Establ.)
[2020-03-22] MEDS: Albuterol 2.5 MG/3 ML VIAL.NEB. INHALATION (20:33)
[2020-03-22 20:44] LABS: CPK Total, Creatine Kinase 256 U/L (39-308); Triglycerides 104 mg/dL
[2020-03-22 20:50] LABS: Hemoglobin A1c 5.5 % (3.8-5.6)
[2020-03-22] MEDS: Chlorhexidine 15 ML PO (21:01)
[2020-03-22] MEDS: Famotidine 20 MG Tablet NG (21:06)
[2020-03-22] MEDS: Haloperidol 5 MG Tablet 10 MG NG (21:07)
[2020-03-22] MEDS: Benztropine 2 MG Tablet NG (21:08)
[2020-03-22] MEDS: Atorvastatin Calcium 40 MG Tablet NG (21:08)
[2020-03-22 21:22] LABS: T4 Free Direct 0.82 ng/dL (0.76-1.46); Thyroid Stim Hormone (TSH) 1.08 uIU/mL (0.358-3.74)
[2020-03-22 21:26] LABS: Allen Test Positive; Base Excess 7 mmol/L (-2 to +2); Bicarbonate 31.8 mmol/L (22-26); Blood Gas Specimen Type ART; FI02 65; Mode AC; O2 Delivery Device Adult Vent; PO2 54 mmHG (75-100); SITE R Radial; SO2 87 % (95-99); Total Carbon Dioxide 33 mmol/L; Vt 500; pCO2 51.4 mmHg (35-45)
[2020-03-22 21:27] LABS: M R Staph aureus DNA By PCR Negative (Negative); Probe Check PASS; Specimen Processing Control PASS
[2020-03-22] MEDS: Valproic Acid 250 MG/5 ML UDC 500 MG NG (23:38)
[2020-03-23] VITALS (48 sets, daily range): BP systolic 86–183; BP diastolic 36–83; PULSE 48–86; RESP 14–20; TEMP 36.9–37.6; O2SAT 89–95; BMI 48.8
[2020-03-23] MEDS: Ipratropium/Albuterol Sulfate 3 ML AMPUL.NEB INHALATION ×4 (03:35→14:16)
[2020-03-23 03:38] LABS: Absolute Lymphocyte Count 0.68 X10^3/uL (0.83-4.51); Absolute Neutrophil Count 5.4 X10^3/uL (2.0-7.7); Basophil# 0.01 X10^3/uL; Basophil% 0.1 % (0-1); Hematocrit 47.4 % (40-54); Hemoglobin 16.6 g/dL (13.0-16.5); Lymphocyte # 0.68 X10^3/ul (4.0); Mean Corpuscular Hgb 32.1 pg (27.0-32.0); Mean Corpuscular Volume 91.7 fL (80-94); Mean Platelet Vol. 9.8 fl (6.2-12.0); Monocyte# 0.75 X10^3/uL; NRBC Flagged by Analyzer 0.3 % (0-5); Neutrophil # 5.37 X10^3/uL (2.7-7.7); Neutrophil % 78.8 % (47-70); Platelet Count 254 K/mm3 (150-450); RBC Distribution Width CV 13.8 % (11.6-14.6); RBC Distribution Width SD 46.9 fl (35.1-43.9); Red Blood Count 5.17 M/mm3 (4.6-6.2); White Blood Count 6.8 K/mm3 (4.4-11.0)
[2020-03-23 03:51] LABS: ALB/GLOB Ratio 0.7 RATIO (0.9-2.4); AST(SGOT) 16 U/L (15-37); Alanine Aminotransfer ALT/SGPT 11 U/L (16-61); Albumin, Serum 2.6 g/dL (3.2-5.0); Alkaline Phosphatase 76 U/L (45-117); Anion Gap 6 (5-15); BUN 10 mg/dL (7-18); BUN/Creat Ratio 17.6 RATIO (10-20); Calcium,Total 7.7 mg/dL (8.5-10.1); Chloride 84 mmol/L (98-107); Cholesterol 179 mg/dL (200); Creatinine, Serum 0.57 mg/dL (0.70-1.30); EST Glomerular Filtration Rate 162 mL/min (>60); Est Glom Filt Rate - Afr Amer 196 mL/min (>60); Estimated Creatinine Clearance 141.47 ml/min; Globulin 3.5 g/dL (2.2-4.2); Glucose 116 mg/dL (74-106); High Density Lipoprotein 21 mg/dL; Potassium 4.5 mmol/L (3.5-5.1); Protein, Total 6.1 g/dL (6.4-8.2); Sodium Level 123 mmol/L (136-145); Triglycerides 85 mg/dL; Very Low Density Lipoprotein 17 mg/dL (5-40)
[2020-03-23] MEDS: Propofol 10MG/Ml 1,000 MG/100 ML Bottle 4.1 MG CONT INF ×2 (03:57→16:18)
[2020-03-23] MEDS: Valproic Acid 250 MG/5 ML UDC 500 MG NG ×4 (05:10→23:14)
--- NOTE | 2020-03-23 05:55 | RAD_ITS ---
STUDY: X-RAY CHEST REASON FOR EXAM: Male, 49 years old. Respiratory failure TECHNIQUE: Single AP portable view of the chest. COMPARISON: 03/22/2020 FINDINGS: Endotracheal tube tip 5.6 cm superior to the lauren. The enteric tube courses inferior to the left diaphragm, its tip is not included or visualized. There are superimposed monitor leads. There is parenchymal loss in the left base with dense retrocardiac opacification. Compression of parenchyma, possible residual infiltrate in the right base with improved aeration in the right lung. Small left pleural effusion. There is cardiac enlargement. Normal mediastinum and belkis. Normal visualized pulmonary arteries. Normal visualized aortic arch and descending thoracic aorta. Normal visualized thoracic spine. Normal visualized ribs, clavicles, and shoulders. RAD/Chest 1 View (Portable) IMPRESSION: Stable cardiac size. Atelectasis and/or infiltrate in the left base with small left pleural effusion. Compression of parenchymal residual infiltrate in the right base. Lines in good position. Electronically Signed: Nanda Restrepo MD at 5:56 EDT , Service support ,
--- NOTE | 2020-03-23 05:55 | EKG12_ITS ---
Test Reason : AM EKG Blood Pressure : / mmHG Vent. Rate : 068 BPM Atrial Rate : 068 BPM P-R Int : 138 ms QRS Dur : 086 ms QT Int : 480 ms P-R-T Axes : 062 118 032 degrees QTc Int : 510 ms Sinus rhythm with Premature atrial complexes T wave abnormality, consider anterior ischemia Prolonged QT Abnormal ECG When compared with ECG of 22-MAR-2020 16:00, MANUAL COMPARISON REQUIRED, DATA IS UNCONFIRMED Confirmed by MIRA GOEL, LIZZETH ([id number]), editor sound DENNY HANEY ([id number]) on 03/27/2020 1:42:41 PM Referred By: LILLIANA Confirmed By:MELISSA MEYERS MD
--- NOTE | 2020-03-23 06:10 | CON.PCM_ITS ---
Reason for Consult Date of Consultation: 03/23/20 Reason for Consultation: Acute combined respiratory failure History of Present Illness: The patient is a 49-year-old male, with a history as outlined below, who presented to the emergency department on March 22 with complaints of acute on chronic shortness of breath, generalized malaise and fatigue. The patient does have a medical history significant for schizophrenia and heavy tobacco dependency with possible underlying obstructive lung disease of unclear severity. History pertinent to the patient's hospitalization was obtained primarily via chart review, as the patient is currently intubated. Per the patient's , the patient does have an extensive smoking history of greater than 1 pack of cigarettes per day and also smokes a pipe as well. He has never been evaluated by a mines inspector in the past. On presentation to the emergency department, the patient was noted to be afebrile and hypertensive. Laboratory evaluation revealed a white blood cell count of 12,000. Hemoglobin was elevated to 17.5. Coagulation profile was within normal limits. Chemistry profile was notable for a sodium of 124, chloride of 84, bicarbonate of 36 and creatinine of 0.58. BNP was elevated to 533. Troponin was negative. Lactate was noted to be 1.6. Toxicology screen was positive for benzodiazepines. Alcohol level was negative. Coronavirus PCR was negative. MRSA screen was negative. The patient was initially placed on noninvasive positive pressure ventilatory support due to his tenuous respiratory status. Unfortunately, the patient did not respond favorably to the use of BiPAP and continued to decompensate. Therefore, he was intubated in the emergency department. The patient was subsequently placed on aerosol treatments and antimicrobials. He was admitted to the medical intensive care unit for further management. Past Medical History Past Medical History (Chronic Problems): Chronic Problems Morbid obesity (Chronic) Tobacco use (Chronic) Schizophrenia (Chronic) Allergies No Known Allergies Allergy (Verified 04/12/15 13:59) Home Medications: Ambulatory Orders Medication Instructions Recorded ALPRAZolam [Xanax] 0.5 mg PO BID PRN 03/09/15 Benztropine Mesylate 1 mg PO BID 03/22/20 Divalproex Sodium [Divalproex 1,000 mg PO BID 03/22/20 Sodium ER] Guaifenesin [Mucinex] 600 mg PO BID 03/22/20 Haloperidol 10 mg PO BID 03/22/20 Surgical History: - - Patient's denies patient ever having had any surgical interventions. Psychiatric History: Anxiety, Schizophrenia Lives: Spouse/ Significant Other Smoking Status: Current every day smoker Tobacco Use: Cigarettes, Cigars, Pipe Alcohol: None Drugs: None - *Family History Paternal History Items: - - Patient's denies any market maternal or paternal family history including heart disease, diabetes or cancer but states that the history is primarily unknown. Maternal History Items: - - Patient's denies any market maternal or paternal family history including heart disease, diabetes or cancer but states that the history is primarily unknown. Review of Systems Unable to obtain accurate/complete ROS d/t: Due to current intubation and mechanical ventilation status. Patient Problems: Active and Suspected Problems Respiratory failure with hypoxia and hypercapnia (Acute) Acute exacerbation of CHF (congestive heart failure) (Acute) COPD exacerbation (Acute) Hyponatremia (Acute) Elevated BP without diagnosis of hypertension (Acute) Hyperglycemia (Acute) Objective: The patient's most recent lab work, culture data and imaging studies have all been personally reviewed. - Physical Exam Vitals/I&O's: Vital Signs Temp Pulse Resp BP Pulse Ox 99.2 F H 61 15 126/65 H 94 03/23/20 06:00 03/23/20 06:00 03/23/20 06:00 03/23/20 06:00 03/23/20 06:00 Oxygen Flow Rate (L/min) 6 Oxygen Delivery Method Mechanical Ventilator Weight: 302 lb 7.587 oz Body Mass Index (BMI) 48.8 Finger Stick Blood Glucose 115 Intake and Output for Last 24 Hours 03/21/20 03/22/20 03/23/20 23:59 23:59 23:59 Intake Total 464.31 / 470.91 102.8 / 102.8 Output Total 1650 / 1650 450 / 450 Balance -1185.69 / -1179.09 -347.2 / -347.2 General: - - Intubated, sedated and mechanically ventilated. HEENT: Atraumatic, Normocephalic Oral: Moist Mucosa, - - Endotracheal and OG tubes in place Neck: Supple, No Nodes, Trachea Midline Lungs: No rhonchi, No wheeze, No rales, Diminished Cardiovascular: Normal S1, Normal S2, Bradycardic Abdomen: Bowel Sounds Present, Soft, Non Tender, Obese Extremities: No clubbing, No cyanosis, Edema Skin: No breakdown Musculoskeletal: No Muscle Wasting Lymphatic: No Cervical, Supraclavicular, or Inguinal Adenopathy Neurological: - - No focal neurological deficits. Moves all extremities spontaneously. Currently sedated on the ventilator. Labs (Last 48 Hours) 03/22/20 03/22/20 03/22/20 16:15 16:15 16:15 WBC 11.5 H RBC 5.41 Hgb 17.5 H Hct 51.6 MCV 95.4 H MCH 32.3 H MCHC 33.9 RDW Std Deviation 50.2 H RDW Coeff of [place] 14.2 Plt Count 327 MPV 9.7 Immature Gran % (Auto) 0.300 Neut % (Auto) 75.1 H Lymph % (Auto) 12.0 L [place] % (Auto) 10.8 H Eos % (Auto) 1.5 Baso % (Auto) 0.3 Absolute Neuts (auto) 8.6 H Absolute Lymphs (auto) 1.38 Nucleated RBC % 0 PT 14.2 INR 1.2 APTT 30.7 Specimen Type Sample Site pH Bicarbonate Actual Total CO2 Base Excess O2 Saturation O2 % ABG pCO2 ABG pO2 Juan Test Respiration Rate O2 Delivery Device Vent Mode Tidal Volume Sodium 124 L Potassium 4.3 Chloride 84 L Carbon Dioxide 36.0 H Anion Gap 4 L BUN 6 L Creatinine 0.58 L Estim Creat Clear Calc 164.09 Est GFR (MDRD) Af Amer 192 Est GFR (MDRD) Non-Af 159 BUN/Creatinine Ratio 10.4 Glucose 132 H Hemoglobin A1c Lactic Acid Calcium 8.2 L Magnesium Total Bilirubin 0.80 AST 18 ALT 16 Alkaline Phosphatase 92 Total Creatine Kinase Troponin I 0.039 B-Natriuretic Peptide Total Protein 7.4 Albumin 3.2 Globulin 4.2 Albumin/Globulin Ratio 0.8 L Triglycerides Cholesterol LDL Cholesterol VLDL Cholesterol HDL Cholesterol Procalcitonin TSH Free T4 Urine Color Urine Clarity Urine pH Ur Specific [place] Urine Protein Urine Glucose (UA) Urine Ketones Urine Occult Blood Urine Nitrite Urine Bilirubin Urine Urobilinogen Ur Leukocyte Esterase Urine RBC Urine WBC Ur Squamous Epith Cells Urine Bacteria Urine Mucus Ur Random Sodium Urine Creatinine Urine Opiates Screen Urine Methadone Screen Ur Barbiturates Screen Phenytoin Ur Phencyclidine Scrn Ur Amphetamines Screen U Methamphetamin-MDMA U Benzodiazepines Scrn Urine Cocaine Screen U Cannabinoids Screen Ur Drug Screen Comment Ethyl Alcohol COVID-19 (DAVEY) MRSA (PCR) Miscellaneous Test 03/22/20 03/22/20 03/22/20 16:15 16:15 16:15 WBC RBC Hgb Hct MCV MCH MCHC RDW Std Deviation RDW Coeff of [place] Plt Count MPV Immature Gran % (Auto) Neut % (Auto) Lymph % (Auto) [place] % (Auto) Eos % (Auto) Baso % (Auto) Absolute Neuts (auto) Absolute Lymphs (auto) Nucleated RBC % PT INR APTT Specimen Type Sample Site pH Bicarbonate Actual Total CO2 Base Excess O2 Saturation O2 % ABG pCO2 ABG pO2 Juan Test Respiration Rate O2 Delivery Device Vent Mode Tidal Volume Sodium Potassium Chloride Carbon Dioxide Anion Gap BUN Creatinine Estim Creat Clear Calc Est GFR (MDRD) Af Amer Est GFR (MDRD) Non-Af BUN/Creatinine Ratio Glucose Hemoglobin A1c Lactic Acid 1.6 Calcium Magnesium Total Bilirubin AST ALT Alkaline Phosphatase Total Creatine Kinase Troponin I B-Natriuretic Peptide Total Protein Albumin Globulin Albumin/Globulin Ratio Triglycerides Cholesterol LDL Cholesterol VLDL Cholesterol HDL Cholesterol Procalcitonin TSH Free T4 Urine Color Urine Clarity Urine pH Ur Specific [place] Urine Protein Urine Glucose (UA) Urine Ketones Urine Occult Blood Urine Nitrite Urine Bilirubin Urine Urobilinogen Ur Leukocyte Esterase Urine RBC Urine WBC Ur Squamous Epith Cells Urine Bacteria Urine Mucus Ur Random Sodium Urine Creatinine Urine Opiates Screen Urine Methadone Screen Ur Barbiturates Screen Phenytoin < 0.4 L Ur Phencyclidine Scrn Ur Amphetamines Screen U Methamphetamin-MDMA U Benzodiazepines Scrn Urine Cocaine Screen U Cannabinoids Screen Ur Drug Screen Comment Ethyl Alcohol < 3.0 COVID-19 (DAVEY) MRSA (PCR) Miscellaneous Test 03/22/20 03/22/20 03/22/20 16:15 16:15 16:21 WBC RBC Hgb Hct MCV MCH MCHC RDW Std Deviation RDW Coeff of [place] Plt Count MPV Immature Gran % (Auto) Neut % (Auto) Lymph % (Auto) [place] % (Auto) Eos % (Auto) Baso % (Auto) Absolute Neuts (auto) Absolute Lymphs (auto) Nucleated RBC % PT INR APTT Specimen Type Sample Site pH Bicarbonate Actual Total CO2 Base Excess O2 Saturation O2 % ABG pCO2 ABG pO2 Juan Test Respiration Rate O2 Delivery Device Vent Mode Tidal Volume Sodium Potassium Chloride Carbon Dioxide Anion Gap BUN Creatinine Estim Creat Clear Calc Est GFR (MDRD) Af Amer Est GFR (MDRD) Non-Af BUN/Creatinine Ratio Glucose Hemoglobin A1c Lactic Acid Calcium Magnesium Total Bilirubin AST ALT Alkaline Phosphatase Total Creatine Kinase Troponin I B-Natriuretic Peptide 533.0 H Total Protein Albumin Globulin Albumin/Globulin Ratio Triglycerides Cholesterol LDL Cholesterol VLDL Cholesterol HDL Cholesterol Procalcitonin 0.09 TSH Free T4 Urine Color Urine Clarity Urine pH Ur Specific [place] Urine Protein Urine Glucose (UA) Urine Ketones Urine Occult Blood Urine Nitrite Urine Bilirubin Urine Urobilinogen Ur Leukocyte Esterase Urine RBC Urine WBC Ur Squamous Epith Cells Urine Bacteria Urine Mucus Ur Random Sodium Urine Creatinine Urine Opiates Screen Urine Methadone Screen Ur Barbiturates Screen Phenytoin Ur Phencyclidine Scrn Ur Amphetamines Screen U Methamphetamin-MDMA U Benzodiazepines Scrn Urine Cocaine Screen U Cannabinoids Screen Ur Drug Screen Comment Ethyl Alcohol COVID-19 (DAVEY) Negative MRSA (PCR) Miscellaneous Test 03/22/20 03/22/20 03/22/20 16:51 17:10 17:10 WBC RBC Hgb Hct MCV MCH MCHC RDW Std Deviation RDW Coeff of [place] Plt Count MPV Immature Gran % (Auto) Neut % (Auto) Lymph % (Auto) [place] % (Auto) Eos % (Auto) Baso % (Auto) Absolute Neuts (auto) Absolute Lymphs (auto) Nucleated RBC % PT INR APTT Specimen Type ART Sample Site R Radial pH 7.22 L Bicarbonate Actual 38.5 H Total CO2 41 Base Excess 11 H O2 Saturation 83 L O2 % 55 ABG pCO2 93.5 H* ABG pO2 60 L Juan Test Positive Respiration Rate 12.0000 O2 Delivery Device BiPAP Vent Mode Tidal Volume Sodium Potassium Chloride Carbon Dioxide Anion Gap BUN Creatinine Estim Creat Clear Calc Est GFR (MDRD) Af Amer Est GFR (MDRD) Non-Af BUN/Creatinine Ratio Glucose Hemoglobin A1c Lactic Acid Calcium Magnesium Total Bilirubin AST ALT Alkaline Phosphatase Total Creatine Kinase Troponin I B-Natriuretic Peptide Total Protein Albumin Globulin Albumin/Globulin Ratio Triglycerides Cholesterol LDL Cholesterol VLDL Cholesterol HDL Cholesterol Procalcitonin TSH Free T4 Urine Color Yellow Urine Clarity Clear Urine pH 6.5 Ur Specific [place] 1.015 Urine Protein 100 H Urine Glucose (UA) Normal Urine Ketones 15 H Urine Occult Blood 10 H Urine Nitrite Negative Urine Bilirubin Negative Urine Urobilinogen 4 H Ur Leukocyte Esterase 25 H Urine RBC 0 SEEN Urine WBC 0 SEEN Ur Squamous Epith Cells 0 SEEN Urine Bacteria 0 SEEN Urine Mucus 0 SEEN Ur Random Sodium Urine Creatinine Urine Opiates Screen NEGATIVE Urine Methadone Screen NEGATIVE Ur Barbiturates Screen NEGATIVE Phenytoin Ur Phencyclidine Scrn NEGATIVE Ur Amphetamines Screen NEGATIVE U Methamphetamin-MDMA NEGATIVE U Benzodiazepines Scrn POSITIVE H Urine Cocaine Screen NEGATIVE U Cannabinoids Screen NEGATIVE Ur Drug Screen Comment Ethyl Alcohol COVID-19 (DAVEY) MRSA (PCR) Miscellaneous Test 03/22/20 03/22/20 03/22/20 17:10 17:10 17:10 WBC RBC Hgb Hct MCV MCH MCHC RDW Std Deviation RDW Coeff of [place] Plt Count MPV Immature Gran % (Auto) Neut % (Auto) Lymph % (Auto) [place] % (Auto) Eos % (Auto) Baso % (Auto) Absolute Neuts (auto) Absolute Lymphs (auto) Nucleated RBC % PT INR APTT Specimen Type Sample Site pH Bicarbonate Actual Total CO2 Base Excess O2 Saturation O2 % ABG pCO2 ABG pO2 Juan Test Respiration Rate O2 Delivery Device Vent Mode Tidal Volume Sodium Potassium Chloride Carbon Dioxide Anion Gap BUN Creatinine Estim Creat Clear Calc Est GFR (MDRD) Af Amer Est GFR (MDRD) Non-Af BUN/Creatinine Ratio Glucose Hemoglobin A1c Lactic Acid Calcium Magnesium Total Bilirubin AST ALT Alkaline Phosphatase Total Creatine Kinase Troponin I B-Natriuretic Peptide Total Protein Albumin Globulin Albumin/Globulin Ratio Triglycerides Cholesterol LDL Cholesterol VLDL Cholesterol HDL Cholesterol Procalcitonin TSH Free T4 Urine Color Urine Clarity Urine pH Ur Specific [place] Urine Protein Urine Glucose (UA) Urine Ketones Urine Occult Blood Urine Nitrite Urine Bilirubin Urine Urobilinogen Ur Leukocyte Esterase Urine RBC Urine WBC Ur Squamous Epith Cells Urine Bacteria Urine Mucus Ur Random Sodium 47 Urine Creatinine 140.00 Urine Opiates Screen Urine Methadone Screen Ur Barbiturates Screen Phenytoin Ur Phencyclidine Scrn Ur Amphetamines Screen U Methamphetamin-MDMA U Benzodiazepines Scrn Urine Cocaine Screen U Cannabinoids Screen Ur Drug Screen Comment Ethyl Alcohol COVID-19 (DAVEY) MRSA (PCR) Miscellaneous Test Pending 03/22/20 03/22/20 03/22/20 18:17 20:00 20:20 WBC RBC Hgb Hct MCV MCH MCHC RDW Std Deviation RDW Coeff of [place] Plt Count MPV Immature Gran % (Auto) Neut % (Auto) Lymph % (Auto) [place] % (Auto) Eos % (Auto) Baso % (Auto) Absolute Neuts (auto) Absolute Lymphs (auto) Nucleated RBC % PT INR APTT Specimen Type ART Sample Site R Radial pH 7.20 L Bicarbonate Actual 39.8 H Total CO2 43 Base Excess 12 H O2 Saturation 90 L O2 % 55 ABG pCO2 102.8 H* ABG pO2 78 Juan Test Positive Respiration Rate 12.0000 O2 Delivery Device BiPAP Vent Mode Tidal Volume Sodium Potassium Chloride Carbon Dioxide Anion Gap BUN Creatinine Estim Creat Clear Calc Est GFR (MDRD) Af Amer Est GFR (MDRD) Non-Af BUN/Creatinine Ratio Glucose Hemoglobin A1c 5.5 Lactic Acid Calcium Magnesium Total Bilirubin AST ALT Alkaline Phosphatase Total Creatine Kinase Troponin I B-Natriuretic Peptide Total Protein Albumin Globulin Albumin/Globulin Ratio Triglycerides Cholesterol LDL Cholesterol VLDL Cholesterol HDL Cholesterol Procalcitonin TSH Free T4 Urine Color Urine Clarity Urine pH Ur Specific [place] Urine Protein Urine Glucose (UA) Urine Ketones Urine Occult Blood Urine Nitrite Urine Bilirubin Urine Urobilinogen Ur Leukocyte Esterase Urine RBC Urine WBC Ur Squamous Epith Cells Urine Bacteria Urine Mucus Ur Random Sodium Urine Creatinine Urine Opiates Screen Urine Methadone Screen Ur Barbiturates Screen Phenytoin Ur Phencyclidine Scrn Ur Amphetamines Screen U Methamphetamin-MDMA U Benzodiazepines Scrn Urine Cocaine Screen U Cannabinoids Screen Ur Drug Screen Comment Ethyl Alcohol COVID-19 (DAVEY) MRSA (PCR) Negative Miscellaneous Test 03/22/20 03/22/20 03/22/20 20:20 20:20 21:18 WBC RBC Hgb Hct MCV MCH MCHC RDW Std Deviation RDW Coeff of [place] Plt Count MPV Immature Gran % (Auto) Neut % (Auto) Lymph % (Auto) [place] % (Auto) Eos % (Auto) Baso % (Auto) Absolute Neuts (auto) Absolute Lymphs (auto) Nucleated RBC % PT INR APTT Specimen Type ART Sample Site R Radial pH 7.40 Bicarbonate Actual 31.8 H Total CO2 33 Base Excess 7 H O2 Saturation 87 L O2 % 65 ABG pCO2 51.4 H ABG pO2 54 L Juan Test Positive Respiration Rate 16.0000 O2 Delivery Device Adult Vent Vent Mode AC Tidal Volume 500 Sodium Potassium Chloride Carbon Dioxide Anion Gap BUN Creatinine Estim Creat Clear Calc Est GFR (MDRD) Af Amer Est GFR (MDRD) Non-Af BUN/Creatinine Ratio Glucose Hemoglobin A1c Lactic Acid Calcium Magnesium 2.0 Total Bilirubin AST ALT Alkaline Phosphatase Total Creatine Kinase 256 Troponin I 0.034 B-Natriuretic Peptide Total Protein Albumin Globulin Albumin/Globulin Ratio Triglycerides 104 Cholesterol LDL Cholesterol VLDL Cholesterol HDL Cholesterol Procalcitonin TSH 1.08 Free T4 0.82 Urine Color Urine Clarity Urine pH Ur Specific [place] Urine Protein Urine Glucose (UA) Urine Ketones Urine Occult Blood Urine Nitrite Urine Bilirubin Urine Urobilinogen Ur Leukocyte Esterase Urine RBC Urine WBC Ur Squamous Epith Cells Urine Bacteria Urine Mucus Ur Random Sodium Urine Creatinine Urine Opiates Screen Urine Methadone Screen Ur Barbiturates Screen Phenytoin Ur Phencyclidine Scrn Ur Amphetamines Screen U Methamphetamin-MDMA U Benzodiazepines Scrn Urine Cocaine Screen U Cannabinoids Screen Ur Drug Screen Comment Ethyl Alcohol COVID-19 (DAVEY) MRSA (PCR) Miscellaneous Test 03/22/20 03/23/20 03/23/20 23:25 03:25 03:25 WBC 6.8 RBC 5.17 Hgb 16.6 H Hct 47.4 MCV 91.7 MCH 32.1 H MCHC 35.0 RDW Std Deviation 46.9 H RDW Coeff of [place] 13.8 Plt Count 254 MPV 9.8 Immature Gran % (Auto) 0.100 Neut % (Auto) 78.8 H Lymph % (Auto) 10.0 L [place] % (Auto) 11.0 H Eos % (Auto) 0.0 Baso % (Auto) 0.1 Absolute Neuts (auto) 5.4 Absolute Lymphs (auto) 0.68 L Nucleated RBC % 0.3 PT INR APTT Specimen Type Sample Site pH Bicarbonate Actual Total CO2 Base Excess O2 Saturation O2 % ABG pCO2 ABG pO2 Juan Test Respiration Rate O2 Delivery Device Vent Mode Tidal Volume Sodium 123 L Potassium 4.5 Chloride 84 L Carbon Dioxide 33.0 H Anion Gap 6 BUN 10 Creatinine 0.57 L Estim Creat Clear Calc 141.47 Est GFR (MDRD) Af Amer 196 Est GFR (MDRD) Non-Af 162 BUN/Creatinine Ratio 17.6 Glucose 116 H Hemoglobin A1c Lactic Acid Calcium 7.7 L Magnesium Total Bilirubin 1.00 AST 16 ALT 11 L Alkaline Phosphatase 76 Total Creatine Kinase Troponin I 0.025 B-Natriuretic Peptide Total Protein 6.1 L Albumin 2.6 L Globulin 3.5 Albumin/Globulin Ratio 0.7 L Triglycerides 85 Cholesterol 179 LDL Cholesterol 141 H VLDL Cholesterol 17 HDL Cholesterol 21 L Procalcitonin TSH Free T4 Urine Color Urine Clarity Urine pH Ur Specific [place] Urine Protein Urine Glucose (UA) Urine Ketones Urine Occult Blood Urine Nitrite Urine Bilirubin Urine Urobilinogen Ur Leukocyte Esterase Urine RBC Urine WBC Ur Squamous Epith Cells Urine Bacteria Urine Mucus Ur Random Sodium Urine Creatinine Urine Opiates Screen Urine Methadone Screen Ur Barbiturates Screen Phenytoin Ur Phencyclidine Scrn Ur Amphetamines Screen U Methamphetamin-MDMA U Benzodiazepines Scrn Urine Cocaine Screen U Cannabinoids Screen Ur Drug Screen Comment Ethyl Alcohol COVID-19 (DAVEY) MRSA (PCR) Miscellaneous Test Microbiology 03/22/20 17:10 Urine Catheter - Blackman Streptococcus pneumoniae Antigen (M - Final 03/22/20 17:10 Urine Catheter - [place] Legionella Antigen - Final Clinical Impression(s) from Imaging Studies Chest X-Ray 03/22/20 16:50 IMPRESSION: Mild pulmonary venous congestion. Cardiac enlargement. Electronically Signed: Isabella Castrejon MD at 17:39 EDT Tel , Service support , Chest X-Ray 03/22/20 19:23 IMPRESSION: 1. Tube positions as described above. 2. Cardiac enlargement. Electronically Signed: Isabella Castrejon MD at 20:24 EDT Tel , Service support , Chest X-Ray 03/23/20 05:55 IMPRESSION: Stable cardiac size. Atelectasis and/or infiltrate in the left base with small left pleural effusion. Compression of parenchymal residual infiltrate in the right base. Lines in good position. Electronically Signed: Nanda Restrepo MD at 5:56 EDT , Service support , Current Medications Acetaminophen (Tylenol Liquid) 650 mg GT Q6H PRN PRN PRN Reason: Pain Score 1-10/Temp > 100.7 F Al Hydroxide/Mg Hydroxide (Mylanta Ii) 30 ml NG Q6H PRN PRN PRN Reason: Gastric Burning Albuterol Sulfate (Ventolin Aerosols) 2.5 mg INHALATION Q2H PRN PRN PRN Reason: Dyspnea, wheezing Last Admin: 08/26/20 20:33 Dose: 2.5 mg Documented by: Albuterol/Ipratropium (Duoneb) 3 ml INHALATION Q4HWA.RT [facility] Last Admin: 03/23/20 03:35 Dose: 3 ml Documented by: Alprazolam (Xanax) 0.5 mg NG BID PRN PRN Reason: ANXIETY Aspirin (Aspirin, Baby) 81 mg GT DAILY@0800 [facility] Atorvastatin Calcium (Lipitor) 40 mg NG QHS [facility] Last Admin: 03/22/20 21:08 Dose: 40 mg Documented by: Benztropine Mesylate (Cogentin) 2 mg NG BID [facility] Last Admin: 03/22/20 21:08 Dose: 2 mg Documented by: Chlorhexidine Gluconate () 15 ml PO BID [facility] Last Admin: 03/22/20 21:01 Dose: 15 ml Documented by: Enoxaparin Sodium (Lovenox) 40 mg SC DAILY [facility] Famotidine (Pepcid) 20 mg NG BID [facility] Last Admin: 03/22/20 21:06 Dose: 20 mg Documented by: Furosemide (Lasix) 40 mg IV BID@1000,1800 [facility] Last Admin: 03/22/20 20:46 Dose: 40 mg Documented by: Guaifenesin (Robitussin) 10 ml NG Q4H PRN PRN PRN Reason: COUGH Haloperidol (Haldol) 10 mg NG BID [facility] Last Admin: 03/22/20 21:07 Dose: 10 mg Documented by: Hydralazine HCl (Apresoline Iv) 10 mg IV Q4H PRN PRN PRN Reason: SBP > 160 Ceftriaxone Sodium 2 gm/ (Sodium Chloride) 50 mls @ 100 mls/hr IV Q24 [facility] Azithromycin 500 mg/ Dextrose 255 mls @ 250 mls/hr IV Q24 [facility] Propofol (Diprivan) 1,000 mg in 100 mls @ 8.292 mls/hr CONT INF .Q12H [facility]; Protocol Last Admin: 03/23/20 03:57 Dose: 5 mcg/kg/min, 4.1 mls/hr Documented by: Fentanyl Citrate 1,000 mcg/ (Sodium Chloride) 100 mls @ 5 mls/hr CONT INF .Q20H [facility]; Protocol Last Titration: 03/23/20 02:00 Dose: 25 mcg/hr, 2.5 mls/hr Documented by: Sodium Chloride () 250 mls @ 15 mls/hr IV .[id number] PRN PRN Reason: Saline Flush Sodium Chloride () 250 mls @ 15 mls/hr IV .[id number] PRN PRN Reason: Additional IVPB Infusion Lisinopril (Zestril) 20 mg NG DAILY [facility] Magnesium Hydroxide (Milk Of Magnesia) 30 ml NG DAILY PRN PRN PRN Reason: Constipation Melatonin (Melatonin) 3 mg NG QHS PRN PRN PRN Reason: INSOMNIA Methylprednisolone (Solu-Medrol) 40 mg IV Q8 [facility] Last Admin: 03/23/20 05:10 Dose: 40 mg Documented by: Metoprolol Tartrate (Lopressor (Beta Cirilo)) 25 mg NG BID [facility] Last Admin: 03/22/20 21:09 Dose: Not Given Documented by: Nitroglycerin (Nitrostat) 0.4 mg SUBLINGUAL Q5M PRN PRN Reason: CARDIAC/CHEST PAIN Ondansetron HCl (Zofran) 4 mg IV Q8H PRN PRN PRN Reason: NAUSEA/VOMITING Prochlorperazine Edisylate (Compazine Iv) 5 mg IV Q4H PRN PRN PRN Reason: Breakthrough Nausea/Vomiting Psyllium Hydrophilic Mucilloid (Metamucil) 1 packet NG DAILY PRN PRN PRN Reason: Constipation Senna/Docusate Sodium (Senokot-S, [place]-Colace) 2 tablet NG BID PRN PRN Reason: Constipation Sodium Chloride () 10 - 40 ml IV UD PRN PRN Reason: SALINE FLUSH Throat Lozenges (Cepacol Sore Throat Lozenge) 1 lozenge MUCOUS MEM Q2H PRN PRN PRN Reason: SORE THROAT Valproic Acid (Depakene) 500 mg NG Q6 [facility] Last Admin: 03/23/20 05:10 Dose: 500 mg Documented by: Assessment/Plan Active and Suspected Problems Respiratory failure with hypoxia and hypercapnia (Acute) Acute exacerbation of CHF (congestive heart failure) (Acute) COPD exacerbation (Acute) Hyponatremia (Acute) Elevated BP without diagnosis of hypertension (Acute) Hyperglycemia (Acute) RECOMMENDATIONS: 1. Continue empiric antimicrobials, while awaiting infectious work-up. 2. Continue diuretic therapy as tolerated by hemodynamics and renal function. 3. Continue scheduled bronchodilators and IV steroids. 4. Okay to start tube feeds today from my perspective. 5. Continue appropriate ICU prophylaxis. 6. Start nicotine replacement therapy. 7. Wean FiO2 and PEEP to maintain oxygen saturations at or above 90%. IMPRESSIONS: 1. Acute combined respiratory failure Most likely multifactorial in etiology with concern for underlying community- acquired pneumonia and possible decompensated heart failure. In addition, the patient has an extensive smoking history, raising the possibility that he has underlying obstructive lung disease, which she is in a state of exacerbation. Acid-base status has improved with invasive mechanical ventilatory support, which will be continued. Continue to wean FiO2 and PEEP to maintain oxygen saturations at or above 90%. Continue empiric antimicrobials, while awaiting infectious work-up. Continue gentle diuresis as tolerated by hemodynamics and renal function. Scheduled bronchodilators and IV steroids will also be con tinued. 2. Hyponatremia/hypochloremia Suspect secondary to hypervolemia. Anticipate improvement with diuresis. Continue to monitor daily. 3. Morbid obesity/tobacco dependency/schizophrenia/questionable obstructive lung disease Complicates care, management, recovery and prognosis. Continue baseline psychiatric medications. Start tube feeds today per nutrition recommendations. Physical therapy evaluation once medically stabilized. TIME: 44 minutes of critical care time, independent of procedures, was spent ad dressing the patient's acute combined respiratory failure, hyponatremia, chronic tobacco dependency, schizophrenia, review of all data and collaboration with the care team. [id number]) [phone] [id number] Critical care first hour
[2020-03-23] MEDS: Piperacil/Tazobactam 4.5 GM in NS100 MBP IV (08:50)
[2020-03-23] MEDS: Aspirin 81 MG TAB.CHEW GT (08:55)
[2020-03-23] MEDS: Chlorhexidine 15 ML PO ×2 (08:56→20:21)
[2020-03-23] MEDS: Haloperidol 5 MG Tablet 10 MG NG ×2 (08:57→22:08)
[2020-03-23] MEDS: Metoprolol Tartrate 25 MG Tablet NG (08:57)
[2020-03-23] MEDS: Furosemide 40 MG/4 ML Vial IV ×2 (08:57→17:40)
[2020-03-23] MEDS: Famotidine 20 MG Tablet NG ×2 (08:58→22:08)
[2020-03-23] MEDS: Enoxaparin 40 MG/0.4 ML Syringe SC (08:58)
[2020-03-23] MEDS: Lisinopril 20 MG Tablet NG (08:58)
[2020-03-23] MEDS: 0.9% Saline Lock 10 ML Syringe IV ×2 (09:00→22:05)
--- NOTE | 2020-03-23 10:52 | PN_ITS ---
Patient Problems: Active and Suspected Problems Respiratory failure with hypoxia and hypercapnia (Acute) Acute exacerbation of CHF (congestive heart failure) (Acute) COPD exacerbation (Acute) Hyponatremia (Acute) Elevated BP without diagnosis of hypertension (Acute) Hyperglycemia (Acute) Subjective: Patient seen and examined. He was admitted with acute hypercapnic respiratory failure and intubated in the ED due to failure to improve with BiPAP. Patient was seen in the ICU. He remains intubated and sedated on propofol and fentanyl. Unable to do review of systems as patient has had a tach. RA SS score is 0. He has remained hemodynamically stable. He has mild bradycardia with heart rate being 53 today. Labs showed sodium of 123 with creatinine of 0.57. WBC has trended down to 6.8 and hemoglobin is 16.6. Vitals/I&O's: Vital Signs Temp Pulse Resp BP Pulse Ox 98.8 F 58 L 14 135/68 H 93 03/23/20 10:00 03/23/20 10:33 03/23/20 10:33 03/23/20 10:00 03/23/20 10:33 Oxygen Flow Rate (L/min) 6 Oxygen Delivery Method Mechanical Ventilator Weight: 302 lb 7.587 oz Body Mass Index (BMI) 48.8 Finger Stick Blood Glucose 115 Intake and Output for Last 24 Hours 03/21/20 03/22/20 03/23/20 23:59 23:59 23:59 Intake Total 464.31 / 470.91 234.33 / 234.33 Output Total 1650 / 1650 575 / 575 Balance -1185.69 / -1179.09 -340.67 / -340.67 General: - - intubated and sedated. RASS score is 0 HEENT: Atraumatic, PERRLA, EOMI, Normocephalic Oral: Dry Mucosa Neck: Supple, No JVD, Negative Carotid Bruits Lungs: - - decreased breath sounds bibasally, no wheezes or crackles. Intubated and sedated. Cardiovascular: Regular Rhythm, Normal S1, Normal S2, No murmurs, Bradycardic Abdomen: Bowel Sounds Present, Soft, Non Tender Extremities: No clubbing, No cyanosis, No edema, Capillary Refill Less than 3 Seconds Skin: No rashes, No breakdown Musculoskeletal: No Tenderness to Palpation of Joints or Extremities Lymphatic: No Cervical, Supraclavicular, or Inguinal Adenopathy Neurological: Cranial nerves II-XII grossly intact Psych/Mental Status: - - intubated, sedated, RASS score is 0 Microbiology Past 72 Hours 03/22/20 17:10 Urine Catheter - Blackman Streptococcus pneumoniae Antigen (M - Final 03/22/20 17:10 Urine Catheter - Blackman Legionella Antigen - Final Laboratory Results 03/22/20 16:15: WBC 11.5 H, RBC 5.41, Hgb 17.5 H, Hct 51.6, MCV 95.4 H, MCH 32.3 H, MCHC 33.9, RDW Std Deviation 50.2 H, RDW Coeff of Dixie 14.2, Plt Count 327, MPV 9.7, Immature Gran % (Auto) 0.300, Neut % (Auto) 75.1 H, Lymph % (Auto) 12.0 L, [place] % (Auto) 10.8 H, Eos % (Auto) 1.5, Baso % (Auto) 0.3, Absolute Neuts (auto) 8.6 H, Absolute Lymphs (auto) 1.38, Nucleated RBC % 0 03/22/20 16:15: PT 14.2, INR 1.2, APTT 30.7 03/22/20 16:15: Sodium 124 L, Potassium 4.3, Chloride 84 L, Carbon Dioxide 36.0 H, Anion Gap 4 L, BUN 6 L, Creatinine 0.58 L, Estim Creat Clear Calc 164.09, Est GFR (MDRD) Af Amer 192, Est GFR (MDRD) Non-Af 159, BUN/Creatinine Ratio 10.4, Glucose 132 H, Calcium 8.2 L, Total Bilirubin 0.80, AST 18, ALT 16, Alkaline Phosphatase 92, Troponin I 0.039, Total Protein 7.4, Albumin 3.2, Globulin 4.2, Albumin/Globulin Ratio 0.8 L 03/22/20 16:15: Lactic Acid 1.6 03/22/20 16:15: Ethyl Alcohol < 3.0 03/22/20 16:15: Phenytoin < 0.4 L 03/22/20 16:15: B-Natriuretic Peptide 533.0 H 03/22/20 16:15: Procalcitonin 0.09 03/22/20 16:21: COVID-19 (DAVEY) Negative 03/22/20 16:51: Specimen Type ART, Sample Site R Radial, pH 7.22 L, Bicarbonate Actual 38.5 H, Total CO2 41, Base Excess 11 H, O2 Saturation 83 L, O2 % 55, ABG pCO2 93.5 H*, ABG pO2 60 L, Juan Test Positive, Respiration Rate 12.0000, O2 Delivery Device BiPAP 03/22/20 17:10: Urine Opiates Screen NEGATIVE, Urine Methadone Screen NEGATIVE, Ur Barbiturates Screen NEGATIVE, Ur Phencyclidine Scrn NEGATIVE, Ur Amphetamines Screen NEGATIVE, U Methamphetamin-MDMA NEGATIVE, U Benzodiazepines Scrn POSITIVE H, Urine Cocaine Screen NEGATIVE, U Cannabinoids Screen NEGATIVE, Ur Drug Screen Comment 03/22/20 17:10: Urine Color Yellow, Urine Clarity Clear, Urine pH 6.5, Ur Specific [place] 1.015, Urine Protein 100 H, Urine Glucose (UA) Normal, Urine Ketones 15 H, Urine Occult Blood 10 H, Urine Nitrite Negative, Urine Bilirubin Negative, Urine Urobilinogen 4 H, Ur Leukocyte Esterase 25 H, Urine RBC 0 SEEN, Urine WBC 0 SEEN, Ur Squamous Epith Cells 0 SEEN, Urine Bacteria 0 SEEN, Urine Mucus 0 SEEN 03/22/20 17:10: Urine Creatinine 140.00 03/22/20 17:10: Ur Random Sodium 47 03/22/20 17:10: Miscellaneous Test Pending 03/22/20 18:17: Specimen Type ART, Sample Site R Radial, pH 7.20 L, Bicarbonate Actual 39.8 H, Total CO2 43, Base Excess 12 H, O2 Saturation 90 L, O2 % 55, ABG pCO2 102.8 H*, ABG pO2 78, Juan Test Positive, Respiration Rate 12.0000, O2 Delivery Device BiPAP 03/22/20 20:00: MRSA (PCR) Negative 03/22/20 20:20: Hemoglobin A1c 5.5 03/22/20 20:20: Magnesium 2.0, Troponin I 0.034, TSH 1.08, Free T4 0.82 03/22/20 20:20: Total Creatine Kinase 256, Triglycerides 104 03/22/20 21:18: Specimen Type ART, Sample Site R Radial, pH 7.40, Bicarbonate Actual 31.8 H, Total CO2 33, Base Excess 7 H, O2 Saturation 87 L, O2 % 65, ABG pCO2 51.4 H, ABG pO2 54 L, Juan Test Positive, Respiration Rate 16.0000, O2 Delivery Device Adult Vent, Vent Mode AC, Tidal Volume 500 03/22/20 23:25: Troponin I 0.025 03/23/20 03:25: WBC 6.8, RBC 5.17, Hgb 16.6 H, Hct 47.4, MCV 91.7, MCH 32.1 H, MCHC 35.0, RDW Std Deviation 46.9 H, RDW Coeff of [place] 13.8, Plt Count 254, MPV 9.8, Immature Gran % (Auto) 0.100, Neut % (Auto) 78.8 H, Lymph % (Auto) 10.0 L, [place] % (Auto) 11.0 H, Eos % (Auto) 0.0, Baso % (Auto) 0.1, Absolute Neuts (auto) 5.4, Absolute Lymphs (auto) 0.68 L, Nucleated RBC % 0.3 03/23/20 03:25: Sodium 123 L, Potassium 4.5, Chloride 84 L, Carbon Dioxide 33.0 H, Anion Gap 6, BUN 10, Creatinine 0.57 L, Estim Creat Clear Calc 141.47, Est GFR (MDRD) Af Amer 196, Est GFR (MDRD) Non-Af 162, BUN/Creatinine Ratio 17.6, Glucose 116 H, Calcium 7.7 L, Total Bilirubin 1.00, AST 16, ALT 11 L, Alkaline Phosphatase 76, Total Protein 6.1 L, Albumin 2.6 L, Globulin 3.5, Albumin/Globulin Ratio 0.7 L, Triglycerides 85, Cholesterol 179, LDL Cholesterol 141 H, VLDL Cholesterol 17, HDL Cholesterol 21 L Current Medications Acetaminophen (Tylenol Liquid) 650 mg GT Q6H PRN PRN PRN Reason: Pain Score 1-10/Temp > 100.7 F Al Hydroxide/Mg Hydroxide (Mylanta Ii) 30 ml NG Q6H PRN PRN PRN Reason: Gastric Burning Albuterol Sulfate (Ventolin Aerosols) 2.5 mg INHALATION Q2H PRN PRN PRN Reason: Dyspnea, wheezing Last Admin: 03/22/20 20:33 Dose: 2.5 mg Documented by: Albuterol/Ipratropium (Duoneb) 3 ml INHALATION Q4HWA.RT ALLIE Last Admin: 03/23/20 10:32 Dose: 3 ml Documented by: Aspirin (Aspirin, Baby) 81 mg GT DAILY@0800 [facility] Last Admin: 03/23/20 08:55 Dose: 81 mg Documented by: Atorvastatin Calcium (Lipitor) 40 mg NG QHS [facility] Last Admin: 03/22/20 21:08 Dose: 40 mg Documented by: Benztropine Mesylate (Cogentin) 1 mg NG BID [facility] Chlorhexidine Gluconate () 15 ml PO BID [facility] Last Admin: 03/23/20 08:56 Dose: 15 ml Documented by: Enoxaparin Sodium (Lovenox) 40 mg SC DAILY [facility] Last Admin: 03/23/20 08:58 Dose: 40 mg Documented by: Famotidine (Pepcid) 20 mg NG BID [facility] Last Admin: 03/23/20 08:58 Dose: 20 mg Documented by: Furosemide (Lasix) 40 mg IV BID@1000,1800 [facility] Last Admin: 03/23/20 08:57 Dose: 40 mg Documented by: Guaifenesin (Robitussin) 10 ml NG Q4H PRN PRN PRN Reason: COUGH Haloperidol (Haldol) 10 mg NG BID [facility] Last Admin: 03/23/20 08:57 Dose: 10 mg Documented by: Hydralazine HCl (Apresoline Iv) 10 mg IV Q4H PRN PRN PRN Reason: SBP > 160 Propofol (Diprivan) 1,000 mg in 100 mls @ 8.292 mls/hr CONT INF .Q12H [facility]; Protocol Last Titration: 03/23/20 10:00 Dose: 10 mcg/kg/min, 8.3 mls/hr Documented by: Fentanyl Citrate 1,000 mcg/ (Sodium Chloride) 100 mls @ 5 mls/hr CONT INF .Q20H [facility]; Protocol Last Titration: 03/23/20 10:00 Dose: 50 mcg/hr, 5 mls/hr Documented by: Sodium Chloride () 250 mls @ 15 mls/hr IV .[id number] PRN PRN Reason: Saline Flush Sodium Chloride () 250 mls @ 15 mls/hr IV .[id number] PRN PRN Reason: Additional IVPB Infusion Piperacillin Sod/Tazobactam (Sod 3.375 gm/ Sodium Chloride) 50 mls @ 12.5 mls/hr IV Q8 [facility] Lisinopril (Zestril) 20 mg NG DAILY [facility] Last Admin: 03/23/20 08:58 Dose: 20 mg Documented by: Magnesium Hydroxide (Milk Of Magnesia) 30 ml NG DAILY PRN PRN PRN Reason: Constipation Methylprednisolone (Solu-Medrol) 40 mg IV Q8 [facility] Last Admin: 03/23/20 05:10 Dose: 40 mg Documented by: Metoprolol Tartrate (Lopressor (Beta Cirilo)) 25 mg NG BID [facility] Last Admin: 03/23/20 08:57 Dose: 25 mg Documented by: Nitroglycerin (Nitrostat) 0.4 mg SUBLINGUAL Q5M PRN PRN Reason: CARDIAC/CHEST PAIN Ondansetron HCl (Zofran) 4 mg IV Q8H PRN PRN PRN Reason: NAUSEA/VOMITING Prochlorperazine Edisylate (Compazine Iv) 5 mg IV Q4H PRN PRN PRN Reason: Breakthrough Nausea/Vomiting Psyllium Hydrophilic Mucilloid (Metamucil) 1 packet NG DAILY PRN PRN PRN Reason: Constipation Senna/Docusate Sodium (Senokot-S, [place]-Colace) 2 tablet NG BID PRN PRN Reason: Constipation Sodium Chloride () 10 - 40 ml IV UD PRN PRN Reason: SALINE FLUSH Last Admin: 03/23/20 09:00 Dose: 20 ml Documented by: Throat Lozenges (Cepacol Sore Throat Lozenge) 1 lozenge MUCOUS MEM Q2H PRN PRN PRN Reason: SORE THROAT Valproic Acid (Depakene) 500 mg NG Q6 [facility] Last Admin: 03/23/20 05:10 Dose: 500 mg Documented by: STROKE Vital Signs/Narrative: Vital Signs Temp Pulse Resp BP BP Pulse Ox 03/23/20 10:33 53 L 14 93 03/23/20 10:00 98.8 F 59 L 16 135/68 H 95 03/23/20 09:00 99.0 F 80 18 183/83 H 95 03/23/20 08:57 73 135/73 H 03/23/20 08:00 98.9 F 64 14 135/73 H 95 03/23/20 07:15 71 14 08/27/20 07:00 99 F 60 14 125/62 H 94 Medical Necessity - Tobacco Use Smoking Status: Current every day smoker Tobacco Use: Cigarettes, Cigars, Pipe Assessment/Plan All Active Problems Respiratory failure with hypoxia and hypercapnia (Acute) Acute exacerbation of CHF (congestive heart failure) (Acute) COPD exacerbation (Acute) Hyponatremia (Acute) Elevated BP without diagnosis of hypertension (Acute) Hyperglycemia (Acute) Troponin I above reference range (Acute) # Acute hypoxic respiratory failure * thought to be multifactorial, due to acute decompensated HF with unknown EF, and acute on chronic COPD exacerbation,a s well as probable pneumonia * currently intubated and sedated * being diuresed with IV lasix 40mg bid * fluid restriction to 1500 cc daily. monitor intake and output * critical care on board * on breathing treatments with duonebs * on IV zosy * COVID test negative; on IV solumedrol * 2D echo pending * blood cultures pending. * CXR today showed atelectasis and/or infiltreate in the left base with small left pleural effusion and compression fo parenchymal infiltrate in the right base * sedated with fentanyl and propofol * # Acute hyponatremia: * likely due to fluid overload. being diuresed with IV lasix * sodium is 123. * will check serum osmolality and urine sodium. * continue diuresing with IV lasix * # Acute heart failure: as under respiratory failure # Acute on chronic COPD exacerbation: as under respiratory failure #Elevated BP: has no diagnosis of hypertension.BP now in normal range. on lisinopril and metoprolol #Schizophrenia: On Haldol, Depakote and benztropine as well as Xanax. #Hyperglycemia: glucose was elevated on admission, but A1C checked is only 5.5. Will monitor # Morbid obesity: BMI is 48. complicates acute care and management. DVT prophylaxis; lovenox Code status: full code Inpatient E&M: 06090 Subs Hosp L3
--- NOTE | 2020-03-23 11:20 | NT.THERAPY_ITS ---
Nutrition Therapy Report - History Nutrition Services has been consulted to:: Manage enteral nutrition Current diet / nutrition support order:: NPO - Anthropometric Measurements Height:: 5 ft 6 in Weight:: 137.2 kg Body Mass Index (BMI):: 48.8 - Relevant Labs Relevant Labs:: WBC 11.5 K/mm3 (4.4-11.0) H 03/22/20 16:15 Hgb 16.6 g/dL (13.0-16.5) H 03/23/20 03:25 MCV 95.4 fL (80-94) H 03/22/20 16:15 MCH 32.1 pg (27.0-32.0) H 03/23/20 03:25 RDW Std Deviation 46.9 fl (35.1-43.9) H 03/23/20 03:25 Neut % (Auto) 78.8 % (47-70) H 03/23/20 03:25 Lymph % (Auto) 10.0 % (19-41) L 03/23/20 03:25 [place] % (Auto) 11.0 % (0-10) H 03/23/20 03:25 Absolute Neuts (auto) 8.6 X10^3/uL (2.0-7.7) H 03/22/20 16:15 Absolute Lymphs (auto) 0.68 X10^3/uL (0.83-4.51) L 03/23/20 03:25 Sodium 123 mmol/L (136-145) L 03/23/20 03:25 Chloride 84 mmol/L (98-107) L 03/23/20 03:25 Carbon Dioxide 33.0 mmol/L (21.0-32.0) H 03/23/20 03:25 Anion Gap 4 (5-15) L 03/22/20 16:15 BUN 6 mg/dL (7-18) L 03/22/20 16:15 Creatinine 0.57 mg/dL (0.70-1.30) L 03/23/20 03:25 Glucose 116 mg/dL (74-106) H 03/23/20 03:25 Calcium 7.7 mg/dL (8.5-10.1) L 03/23/20 03:25 ALT 11 U/L (16-61) L 03/23/20 03:25 B-Natriuretic Peptide 533.0 pg/mL (0-100) H 03/22/20 16:15 Total Protein 6.1 g/dL (6.4-8.2) L 03/23/20 03:25 Albumin 2.6 g/dL (3.2-5.0) L 03/23/20 03:25 Albumin/Globulin Ratio 0.7 RATIO (0.9-2.4) L 03/23/20 03:25 LDL Cholesterol 141 mg/dL (0-130) H 03/23/20 03:25 HDL Cholesterol 21 mg/dL (40-) L 03/23/20 03:25 - Assessment Food / Nutrition-Related History:: Discussed in ICU rounds. Unable to speak w/ pt- intubated. OG in place. Unable to provide information re: nutrition status upon admission. No recent wt hx in EMR. Has generalized non-pitting edema per nursing staff. - Nutrition Diagnosis Problem / Etiology / Signs & Symptoms (PES):: Inadequate oral intake related to mechanical ventillation and inability to consume adequate energy intake via oral diet as evidenced by no PO intake since admission. Evidence of Malnutrition Exists:: No - Nutrition Intervention Nutrition Prescription:: Will use ASPEN guidelines for critically ill obese patients: 2-2.5 g protein/kg ideal body wt (64 kg) and 11-14 calories/kg current body weight (137.2kg). 1374-2278 calories/day and 128-160 g protein/day - Food / Nutrient Delivery Interventions Summary of nutrition intervention:: Will order enteral nutrition support for initiation as appropriate. Nutrition support ordered as / adjusted to:: Vital AF 1.2 via OG at goal rate 65mL/hour w/ 100mL H2O flush every 4 hours to provide 1872 calories, 117 g protein, and 1865mL total fluid/day. Would start at 25mL/hour and increase by 10mL every 8 hours as pt tolerates until goal rate achieved. Nutrition education provided?: No - MNT Monitoring Further MNT monitoring and evaluation required?: Yes MNT Follow-up in:: 1-2 days
[2020-03-23] MEDS: Benztropine 2 MG Tablet 1 MG NG ×2 (12:00→22:09)
[2020-03-23] MEDS: Vital AF 1.2 Cal Liquid 1,000 ML 25 ML GT (12:07)
[2020-03-23] MEDS: Atorvastatin Calcium 40 MG Tablet NG (22:08)
[2020-03-24] VITALS (38 sets, daily range): BP systolic 125–179; BP diastolic 55–89; PULSE 48–64; RESP 14–18; TEMP 37–37.8; O2SAT 88–95
[2020-03-24] MEDS: 0.9% Saline Lock 10 ML Syringe IV ×2 (04:23→21:10)
[2020-03-24 04:53] LABS: Absolute Lymphocyte Count 0.53 X10^3/uL (0.83-4.51); Basophil# 0.01 X10^3/uL; Basophil% 0.1 % (0-1); Hematocrit 50.1 % (40-54); Hemoglobin 17.4 g/dL (13.0-16.5); Lymphocyte # 0.53 X10^3/ul (4.0); Lymphocyte % 6.3 % (19-41); Mean Corp Hgb Conc 34.7 g/dL (32-36); Mean Corpuscular Hgb 31.6 pg (27.0-32.0); Mean Corpuscular Volume 91.1 fL (80-94); Mean Platelet Vol. 9.9 fl (6.2-12.0); Monocyte# 0.83 X10^3/uL; Monocyte% 9.9 % (0-10); NRBC Flagged by Analyzer 0 % (0-5); Neutrophil % 83.5 % (47-70); POSITIVE DIFFERENTIAL YES; Platelet Count 313 K/mm3 (150-450); RBC Distribution Width CV 14.3 % (11.6-14.6); White Blood Count 8.4 K/mm3 (4.4-11.0)
[2020-03-24 05:04] LABS: Anion Gap 5 (5-15); BUN 17 mg/dL (7-18); BUN/Creat Ratio 27.2 RATIO (10-20); Calcium,Total 7.9 mg/dL (8.5-10.1); Chloride 90 mmol/L (98-107); Creatinine, Serum 0.63 mg/dL (0.70-1.30); EST Glomerular Filtration Rate 144 mL/min (>60); Est Glom Filt Rate - Afr Amer 175 mL/min (>60); Estimated Creatinine Clearance 127.99 ml/min; Glucose 152 mg/dL (74-106); Sodium Level 129 mmol/L (136-145)
[2020-03-24 05:19] LABS: Differential Indicated SCAN CRITERIA MET
[2020-03-24] MEDS: TITRATION PARAMETER CHANGE 1 EACH IV (05:26)
[2020-03-24] MEDS: Valproic Acid 250 MG/5 ML UDC 500 MG NG ×3 (05:30→18:05)
[2020-03-24 05:37] LABS: Differential Comment SCANNED
--- NOTE | 2020-03-24 06:14 | PN_ITS ---
Subjective: The patient was seen and examined at the bedside this morning. Events from the last 24 hours have been reviewed. The patient is currently afebrile, hemodynamically stable and maintaining appropriate oxygen saturations on assist control mode of mechanical ventilation with an FiO2 requirement of 60% and PEEP of 8. The patient did have to be transition from propofol to Precedex yesterday for sedation and hemodynamic issues. He remains on fentanyl as well. He is currently tolerating tube feeds. However, per nursing report, he does become agitated with minimal stimulation. Objective: The patient's most recent lab work, culture data and imaging studies have all been personally reviewed. Coronavirus PCR was negative on March 22. Respiratory viral panel was negative. Blood, urine and sputum cultures are pending. General: - - Intubated, sedated and mechanically ventilated. HEENT: Atraumatic, Normocephalic Oral: Moist Mucosa, - - Endotracheal and OG tubes remain in place Neck: Supple, No Nodes, Trachea Midline Lungs: - - Globally diminished air movement with mechanical breath sounds. Cardiovascular: Normal S1, Normal S2, No murmurs, Bradycardic Abdomen: Bowel Sounds Present, Soft, Non Tender, Obese Extremities: No clubbing, No cyanosis, Edema Skin: No breakdown Musculoskeletal: No Muscle Wasting Lymphatic: No Cervical, Supraclavicular, or Inguinal Adenopathy Neurological: - - No focal neurological deficits. Currently sedated on the ventilator. Vital Signs Temp Pulse Resp BP Pulse Ox 99.1 F 51 L 14 146/64 H 93 03/24/20 06:00 03/24/20 06:00 03/24/20 06:00 03/24/20 06:00 03/24/20 06:00 Oxygen Flow Rate (L/min) 6 Oxygen Delivery Method Mechanical Ventilator Weight: 295 lb 6.711 oz Body Mass Index (BMI) 48.8 Finger Stick Blood Glucose 115 Intake and Output for Last 24 Hours 03/22/20 03/23/20 03/24/20 23:59 23:59 23:59 Intake Total 464.31 / 470.91 1351.02 / 1358.67 619.26 / 619.26 Output Total 1650 / 1650 3600 / 3600 1325 / 1325 Balance -1185.69 / -1179.09 -2248.98 / -2241.33 -705.74 / -705.74 Labs (Last 48 Hours) 03/22/20 03/22/20 03/22/20 16:15 16:15 16:15 WBC 11.5 H RBC 5.41 Hgb 17.5 H Hct 51.6 MCV 95.4 H MCH 32.3 H MCHC 33.9 RDW Std Deviation 50.2 H RDW Coeff of [place] 14.2 Plt Count 327 MPV 9.7 Immature Gran % (Auto) 0.300 Neut % (Auto) 75.1 H Lymph % (Auto) 12.0 L Mcmullen % (Auto) 10.8 H Eos % (Auto) 1.5 Baso % (Auto) 0.3 Absolute Neuts (auto) 8.6 H Absolute Lymphs (auto) 1.38 Nucleated RBC % 0 Differential Comment PT 14.2 INR 1.2 APTT 30.7 Specimen Type Sample Site pH Bicarbonate Actual Total CO2 Base Excess O2 Saturation O2 % ABG pCO2 ABG pO2 Juan Test Respiration Rate O2 Delivery Device Vent Mode Tidal Volume Sodium 124 L Potassium 4.3 Chloride 84 L Carbon Dioxide 36.0 H Anion Gap 4 L BUN 6 L Creatinine 0.58 L Estim Creat Clear Calc 164.09 Est GFR (MDRD) Af Amer 192 Est GFR (MDRD) Non-Af 159 BUN/Creatinine Ratio 10.4 Glucose 132 H Hemoglobin A1c Serum Osmolality Lactic Acid Calcium 8.2 L Magnesium Total Bilirubin 0.80 AST 18 ALT 16 Alkaline Phosphatase 92 Total Creatine Kinase Troponin I 0.039 B-Natriuretic Peptide Total Protein 7.4 Albumin 3.2 Globulin 4.2 Albumin/Globulin Ratio 0.8 L Triglycerides Cholesterol LDL Cholesterol VLDL Cholesterol HDL Cholesterol Procalcitonin TSH Free T4 Urine Color Urine Clarity Urine pH Ur Specific [place] Urine Protein Urine Glucose (UA) Urine Ketones Urine Occult Blood Urine Nitrite Urine Bilirubin Urine Urobilinogen Ur Leukocyte Esterase Urine RBC Urine WBC Ur Squamous Epith Cells Urine Bacteria Urine Mucus Urine Osmolality Ur Random Sodium Urine Creatinine Urine Opiates Screen Urine Methadone Screen Ur Barbiturates Screen Phenytoin Ur Phencyclidine Scrn Ur Amphetamines Screen U Methamphetamin-MDMA U Benzodiazepines Scrn Urine Cocaine Screen U Cannabinoids Screen Ur Drug Screen Comment Ethyl Alcohol COVID-19 (DAVEY) MRSA (PCR) Miscellaneous Test 03/22/20 03/22/20 03/22/20 16:15 16:15 16:15 WBC RBC Hgb Hct MCV MCH MCHC RDW Std Deviation RDW Coeff of [place] Plt Count MPV Immature Gran % (Auto) Neut % (Auto) Lymph % (Auto) Mcmullen % (Auto) Eos % (Auto) Baso % (Auto) Absolute Neuts (auto) Absolute Lymphs (auto) Nucleated RBC % Differential Comment PT INR APTT Specimen Type Sample Site pH Bicarbonate Actual Total CO2 Base Excess O2 Saturation O2 % ABG pCO2 ABG pO2 Juan Test Respiration Rate O2 Delivery Device Vent Mode Tidal Volume Sodium Potassium Chloride Carbon Dioxide Anion Gap BUN Creatinine Estim Creat Clear Calc Est GFR (MDRD) Af Amer Est GFR (MDRD) Non-Af BUN/Creatinine Ratio Glucose Hemoglobin A1c Serum Osmolality Lactic Acid 1.6 Calcium Magnesium Total Bilirubin AST ALT Alkaline Phosphatase Total Creatine Kinase Troponin I B-Natriuretic Peptide Total Protein Albumin Globulin Albumin/Globulin Ratio Triglycerides Cholesterol LDL Cholesterol VLDL Cholesterol HDL Cholesterol Procalcitonin TSH Free T4 Urine Color Urine Clarity Urine pH Ur Specific [place] Urine Protein Urine Glucose (UA) Urine Ketones Urine Occult Blood Urine Nitrite Urine Bilirubin Urine Urobilinogen Ur Leukocyte Esterase Urine RBC Urine WBC Ur Squamous Epith Cells Urine Bacteria Urine Mucus Urine Osmolality Ur Random Sodium Urine Creatinine Urine Opiates Screen Urine Methadone Screen Ur Barbiturates Screen Phenytoin < 0.4 L Ur Phencyclidine Scrn Ur Amphetamines Screen U Methamphetamin-MDMA U Benzodiazepines Scrn Urine Cocaine Screen U Cannabinoids Screen Ur Drug Screen Comment Ethyl Alcohol < 3.0 COVID-19 (DAVEY) MRSA (PCR) Miscellaneous Test 03/22/20 03/22/20 03/22/20 16:15 16:15 16:21 WBC RBC Hgb Hct MCV MCH MCHC RDW Std Deviation RDW Coeff of [place] Plt Count MPV Immature Gran % (Auto) Neut % (Auto) Lymph % (Auto) Mcmullen % (Auto) Eos % (Auto) Baso % (Auto) Absolute Neuts (auto) Absolute Lymphs (auto) Nucleated RBC % Differential Comment PT INR APTT Specimen Type Sample Site pH Bicarbonate Actual Total CO2 Base Excess O2 Saturation O2 % ABG pCO2 ABG pO2 Juan Test Respiration Rate O2 Delivery Device Vent Mode Tidal Volume Sodium Potassium Chloride Carbon Dioxide Anion Gap BUN Creatinine Estim Creat Clear Calc Est GFR (MDRD) Af Amer Est GFR (MDRD) Non-Af BUN/Creatinine Ratio Glucose Hemoglobin A1c Serum Osmolality Lactic Acid Calcium Magnesium Total Bilirubin AST ALT Alkaline Phosphatase Total Creatine Kinase Troponin I B-Natriuretic Peptide 533.0 H Total Protein Albumin Globulin Albumin/Globulin Ratio Triglycerides Cholesterol LDL Cholesterol VLDL Cholesterol HDL Cholesterol Procalcitonin 0.09 TSH Free T4 Urine Color Urine Clarity Urine pH Ur Specific [place] Urine Protein Urine Glucose (UA) Urine Ketones Urine Occult Blood Urine Nitrite Urine Bilirubin Urine Urobilinogen Ur Leukocyte Esterase Urine RBC Urine WBC Ur Squamous Epith Cells Urine Bacteria Urine Mucus Urine Osmolality Ur Random Sodium Urine Creatinine Urine Opiates Screen Urine Methadone Screen Ur Barbiturates Screen Phenytoin Ur Phencyclidine Scrn Ur Amphetamines Screen U Methamphetamin-MDMA U Benzodiazepines Scrn Urine Cocaine Screen U Cannabinoids Screen Ur Drug Screen Comment Ethyl Alcohol COVID-19 (DAVEY) Negative MRSA (PCR) Miscellaneous Test 03/22/20 03/22/20 03/22/20 16:51 17:10 17:10 WBC RBC Hgb Hct MCV MCH MCHC RDW Std Deviation RDW Coeff of [place] Plt Count MPV Immature Gran % (Auto) Neut % (Auto) Lymph % (Auto) Mcmullen % (Auto) Eos % (Auto) Baso % (Auto) Absolute Neuts (auto) Absolute Lymphs (auto) Nucleated RBC % Differential Comment PT INR APTT Specimen Type ART Sample Site R Radial pH 7.22 L Bicarbonate Actual 38.5 H Total CO2 41 Base Excess 11 H O2 Saturation 83 L O2 % 55 ABG pCO2 93.5 H* ABG pO2 60 L Juan Test Positive Respiration Rate 12.0000 O2 Delivery Device BiPAP Vent Mode Tidal Volume Sodium Potassium Chloride Carbon Dioxide Anion Gap BUN Creatinine Estim Creat Clear Calc Est GFR (MDRD) Af Amer Est GFR (MDRD) Non-Af BUN/Creatinine Ratio Glucose Hemoglobin A1c Serum Osmolality Lactic Acid Calcium Magnesium Total Bilirubin AST ALT Alkaline Phosphatase Total Creatine Kinase Troponin I B-Natriuretic Peptide Total Protein Albumin Globulin Albumin/Globulin Ratio Triglycerides Cholesterol LDL Cholesterol VLDL Cholesterol HDL Cholesterol Procalcitonin TSH Free T4 Urine Color Yellow Urine Clarity Clear Urine pH 6.5 Ur Specific [place] 1.015 Urine Protein 100 H Urine Glucose (UA) Normal Urine Ketones 15 H Urine Occult Blood 10 H Urine Nitrite Negative Urine Bilirubin Negative Urine Urobilinogen 4 H Ur Leukocyte Esterase 25 H Urine RBC 0 SEEN Urine WBC 0 SEEN Ur Squamous Epith Cells 0 SEEN Urine Bacteria 0 SEEN Urine Mucus 0 SEEN Urine Osmolality Ur Random Sodium Urine Creatinine Urine Opiates Screen NEGATIVE Urine Methadone Screen NEGATIVE Ur Barbiturates Screen NEGATIVE Phenytoin Ur Phencyclidine Scrn NEGATIVE Ur Amphetamines Screen NEGATIVE U Methamphetamin-MDMA NEGATIVE U Benzodiazepines Scrn POSITIVE H Urine Cocaine Screen NEGATIVE U Cannabinoids Screen NEGATIVE Ur Drug Screen Comment Ethyl Alcohol COVID-19 (DAVEY) MRSA (PCR) Miscellaneous Test 03/22/20 03/22/20 03/22/20 17:10 17:10 17:10 WBC RBC Hgb Hct MCV MCH MCHC RDW Std Deviation RDW Coeff of [place] Plt Count MPV Immature Gran % (Auto) Neut % (Auto) Lymph % (Auto) Mcmullen % (Auto) Eos % (Auto) Baso % (Auto) Absolute Neuts (auto) Absolute Lymphs (auto) Nucleated RBC % Differential Comment PT INR APTT Specimen Type Sample Site pH Bicarbonate Actual Total CO2 Base Excess O2 Saturation O2 % ABG pCO2 ABG pO2 Juan Test Respiration Rate O2 Delivery Device Vent Mode Tidal Volume Sodium Potassium Chloride Carbon Dioxide Anion Gap BUN Creatinine Estim Creat Clear Calc Est GFR (MDRD) Af Amer Est GFR (MDRD) Non-Af BUN/Creatinine Ratio Glucose Hemoglobin A1c Serum Osmolality Lactic Acid Calcium Magnesium Total Bilirubin AST ALT Alkaline Phosphatase Total Creatine Kinase Troponin I B-Natriuretic Peptide Total Protein Albumin Globulin Albumin/Globulin Ratio Triglycerides Cholesterol LDL Cholesterol VLDL Cholesterol HDL Cholesterol Procalcitonin TSH Free T4 Urine Color Urine Clarity Urine pH Ur Specific [place] Urine Protein Urine Glucose (UA) Urine Ketones Urine Occult Blood Urine Nitrite Urine Bilirubin Urine Urobilinogen Ur Leukocyte Esterase Urine RBC Urine WBC Ur Squamous Epith Cells Urine Bacteria Urine Mucus Urine Osmolality Ur Random Sodium 47 Urine Creatinine 140.00 Urine Opiates Screen Urine Methadone Screen Ur Barbiturates Screen Phenytoin Ur Phencyclidine Scrn Ur Amphetamines Screen U Methamphetamin-MDMA U Benzodiazepines Scrn Urine Cocaine Screen U Cannabinoids Screen Ur Drug Screen Comment Ethyl Alcohol COVID-19 (DAVEY) MRSA (PCR) Miscellaneous Test Pending 03/22/20 03/22/20 03/22/20 18:17 20:00 20:20 WBC RBC Hgb Hct MCV MCH MCHC RDW Std Deviation RDW Coeff of [place] Plt Count MPV Immature Gran % (Auto) Neut % (Auto) Lymph % (Auto) Mcmullen % (Auto) Eos % (Auto) Baso % (Auto) Absolute Neuts (auto) Absolute Lymphs (auto) Nucleated RBC % Differential Comment PT INR APTT Specimen Type ART Sample Site R Radial pH 7.20 L Bicarbonate Actual 39.8 H Total CO2 43 Base Excess 12 H O2 Saturation 90 L O2 % 55 ABG pCO2 102.8 H* ABG pO2 78 Juan Test Positive Respiration Rate 12.0000 O2 Delivery Device BiPAP Vent Mode Tidal Volume Sodium Potassium Chloride Carbon Dioxide Anion Gap BUN Creatinine Estim Creat Clear Calc Est GFR (MDRD) Af Amer Est GFR (MDRD) Non-Af BUN/Creatinine Ratio Glucose Hemoglobin A1c 5.5 Serum Osmolality Lactic Acid Calcium Magnesium Total Bilirubin AST ALT Alkaline Phosphatase Total Creatine Kinase Troponin I B-Natriuretic Peptide Total Protein Albumin Globulin Albumin/Globulin Ratio Triglycerides Cholesterol LDL Cholesterol VLDL Cholesterol HDL Cholesterol Procalcitonin TSH Free T4 Urine Color Urine Clarity Urine pH Ur Specific [place] Urine Protein Urine Glucose (UA) Urine Ketones Urine Occult Blood Urine Nitrite Urine Bilirubin Urine Urobilinogen Ur Leukocyte Esterase Urine RBC Urine WBC Ur Squamous Epith Cells Urine Bacteria Urine Mucus Urine Osmolality Ur Random Sodium Urine Creatinine Urine Opiates Screen Urine Methadone Screen Ur Barbiturates Screen Phenytoin Ur Phencyclidine Scrn Ur Amphetamines Screen U Methamphetamin-MDMA U Benzodiazepines Scrn Urine Cocaine Screen U Cannabinoids Screen Ur Drug Screen Comment Ethyl Alcohol COVID-19 (DAVEY) MRSA (PCR) Negative Miscellaneous Test 03/22/20 03/22/20 03/22/20 20:20 20:20 21:18 WBC RBC Hgb Hct MCV MCH MCHC RDW Std Deviation RDW Coeff of [place] Plt Count MPV Immature Gran % (Auto) Neut % (Auto) Lymph % (Auto) Mcmullen % (Auto) Eos % (Auto) Baso % (Auto) Absolute Neuts (auto) Absolute Lymphs (auto) Nucleated RBC % Differential Comment PT INR APTT Specimen Type ART Sample Site R Radial pH 7.40 Bicarbonate Actual 31.8 H Total CO2 33 Base Excess 7 H O2 Saturation 87 L O2 % 65 ABG pCO2 51.4 H ABG pO2 54 L Juan Test Positive Respiration Rate 16.0000 O2 Delivery Device Adult Vent Vent Mode AC Tidal Volume 500 Sodium Potassium Chloride Carbon Dioxide Anion Gap BUN Creatinine Estim Creat Clear Calc Est GFR (MDRD) Af Amer Est GFR (MDRD) Non-Af BUN/Creatinine Ratio Glucose Hemoglobin A1c Serum Osmolality Lactic Acid Calcium Magnesium 2.0 Total Bilirubin AST ALT Alkaline Phosphatase Total Creatine Kinase 256 Troponin I 0.034 B-Natriuretic Peptide Total Protein Albumin Globulin Albumin/Globulin Ratio Triglycerides 104 Cholesterol LDL Cholesterol VLDL Cholesterol HDL Cholesterol Procalcitonin TSH 1.08 Free T4 0.82 Urine Color Urine Clarity Urine pH Ur Specific [place] Urine Protein Urine Glucose (UA) Urine Ketones Urine Occult Blood Urine Nitrite Urine Bilirubin Urine Urobilinogen Ur Leukocyte Esterase Urine RBC Urine WBC Ur Squamous Epith Cells Urine Bacteria Urine Mucus Urine Osmolality Ur Random Sodium Urine Creatinine Urine Opiates Screen Urine Methadone Screen Ur Barbiturates Screen Phenytoin Ur Phencyclidine Scrn Ur Amphetamines Screen U Methamphetamin-MDMA U Benzodiazepines Scrn Urine Cocaine Screen U Cannabinoids Screen Ur Drug Screen Comment Ethyl Alcohol COVID-19 (DAVEY) MRSA (PCR) Miscellaneous Test 03/22/20 03/23/20 03/23/20 23:25 03:25 03:25 WBC 6.8 RBC 5.17 Hgb 16.6 H Hct 47.4 MCV 91.7 MCH 32.1 H MCHC 35.0 RDW Std Deviation 46.9 H RDW Coeff of [place] 13.8 Plt Count 254 MPV 9.8 Immature Gran % (Auto) 0.100 Neut % (Auto) 78.8 H Lymph % (Auto) 10.0 L Mcmullen % (Auto) 11.0 H Eos % (Auto) 0.0 Baso % (Auto) 0.1 Absolute Neuts (auto) 5.4 Absolute Lymphs (auto) 0.68 L Nucleated RBC % 0.3 Differential Comment PT INR APTT Specimen Type Sample Site pH Bicarbonate Actual Total CO2 Base Excess O2 Saturation O2 % ABG pCO2 ABG pO2 Juan Test Respiration Rate O2 Delivery Device Vent Mode Tidal Volume Sodium 123 L Potassium 4.5 Chloride 84 L Carbon Dioxide 33.0 H Anion Gap 6 BUN 10 Creatinine 0.57 L Estim Creat Clear Calc 141.47 Est GFR (MDRD) Af Amer 196 Est GFR (MDRD) Non-Af 162 BUN/Creatinine Ratio 17.6 Glucose 116 H Hemoglobin A1c Serum Osmolality Lactic Acid Calcium 7.7 L Magnesium Total Bilirubin 1.00 AST 16 ALT 11 L Alkaline Phosphatase 76 Total Creatine Kinase Troponin I 0.025 B-Natriuretic Peptide Total Protein 6.1 L Albumin 2.6 L Globulin 3.5 Albumin/Globulin Ratio 0.7 L Triglycerides 85 Cholesterol 179 LDL Cholesterol 141 H VLDL Cholesterol 17 HDL Cholesterol 21 L Procalcitonin TSH Free T4 Urine Color Urine Clarity Urine pH Ur Specific [place] Urine Protein Urine Glucose (UA) Urine Ketones Urine Occult Blood Urine Nitrite Urine Bilirubin Urine Urobilinogen Ur Leukocyte Esterase Urine RBC Urine WBC Ur Squamous Epith Cells Urine Bacteria Urine Mucus Urine Osmolality Ur Random Sodium Urine Creatinine Urine Opiates Screen Urine Methadone Screen Ur Barbiturates Screen Phenytoin Ur Phencyclidine Scrn Ur Amphetamines Screen U Methamphetamin-MDMA U Benzodiazepines Scrn Urine Cocaine Screen U Cannabinoids Screen Ur Drug Screen Comment Ethyl Alcohol COVID-19 (DAVEY) MRSA (PCR) Miscellaneous Test 03/23/20 03/23/20 03/23/20 11:30 11:30 11:30 WBC RBC Hgb Hct MCV MCH MCHC RDW Std Deviation RDW Coeff of [place] Plt Count MPV Immature Gran % (Auto) Neut % (Auto) Lymph % (Auto) [place] % (Auto) Eos % (Auto) Baso % (Auto) Absolute Neuts (auto) Absolute Lymphs (auto) Nucleated RBC % Differential Comment PT INR APTT Specimen Type Sample Site pH Bicarbonate Actual Total CO2 Base Excess O2 Saturation O2 % ABG pCO2 ABG pO2 Juan Test Respiration Rate O2 Delivery Device Vent Mode Tidal Volume Sodium Potassium Chloride Carbon Dioxide Anion Gap BUN Creatinine Estim Creat Clear Calc Est GFR (MDRD) Af Amer Est GFR (MDRD) Non-Af BUN/Creatinine Ratio Glucose Hemoglobin A1c Serum Osmolality Cancelled Lactic Acid Calcium Magnesium Total Bilirubin AST ALT Alkaline Phosphatase Total Creatine Kinase Troponin I B-Natriuretic Peptide Total Protein Albumin Globulin Albumin/Globulin Ratio Triglycerides Cholesterol LDL Cholesterol VLDL Cholesterol HDL Cholesterol Procalcitonin TSH Free T4 Urine Color Urine Clarity Urine pH Ur Specific [place] Urine Protein Urine Glucose (UA) Urine Ketones Urine Occult Blood Urine Nitrite Urine Bilirubin Urine Urobilinogen Ur Leukocyte Esterase Urine RBC Urine WBC Ur Squamous Epith Cells Urine Bacteria Urine Mucus Urine Osmolality Cancelled Ur Random Sodium Urine Creatinine Urine Opiates Screen Urine Methadone Screen Ur Barbiturates Screen Phenytoin Ur Phencyclidine Scrn Ur Amphetamines Screen U Methamphetamin-MDMA U Benzodiazepines Scrn Urine Cocaine Screen U Cannabinoids Screen Ur Drug Screen Comment Ethyl Alcohol COVID-19 (DAVEY) MRSA (PCR) Miscellaneous Test Pending 03/23/20 03/24/20 03/24/20 11:30 04:45 04:45 WBC 8.4 RBC 5.50 Hgb 17.4 H Hct 50.1 MCV 91.1 MCH 31.6 MCHC 34.7 RDW Std Deviation 48.0 H RDW Coeff of [place] 14.3 Plt Count 313 MPV 9.9 Immature Gran % (Auto) 0.200 Neut % (Auto) 83.5 H Lymph % (Auto) 6.3 L Mcmullen % (Auto) 9.9 Eos % (Auto) 0.0 Baso % (Auto) 0.1 Absolute Neuts (auto) 7.0 Absolute Lymphs (auto) 0.53 L Nucleated RBC % 0 Differential Comment SCANNED PT INR APTT Specimen Type Sample Site pH Bicarbonate Actual Total CO2 Base Excess O2 Saturation O2 % ABG pCO2 ABG pO2 Juan Test Respiration Rate O2 Delivery Device Vent Mode Tidal Volume Sodium 129 L Potassium 4.0 Chloride 90 L Carbon Dioxide 34.0 H Anion Gap 5 BUN 17 Creatinine 0.63 L Estim Creat Clear Calc 127.99 Est GFR (MDRD) Af Amer 175 Est GFR (MDRD) Non-Af 144 BUN/Creatinine Ratio 27.2 H Glucose 152 H Hemoglobin A1c Serum Osmolality Lactic Acid Calcium 7.9 L Magnesium Total Bilirubin AST ALT Alkaline Phosphatase Total Creatine Kinase Troponin I B-Natriuretic Peptide Total Protein Albumin Globulin Albumin/Globulin Ratio Triglycerides Cholesterol LDL Cholesterol VLDL Cholesterol HDL Cholesterol Procalcitonin TSH Free T4 Urine Color Urine Clarity Urine pH Ur Specific [place] Urine Protein Urine Glucose (UA) Urine Ketones Urine Occult Blood Urine Nitrite Urine Bilirubin Urine Urobilinogen Ur Leukocyte Esterase Urine RBC Urine WBC Ur Squamous Epith Cells Urine Bacteria Urine Mucus Urine Osmolality Ur Random Sodium Urine Creatinine Urine Opiates Screen Urine Methadone Screen Ur Barbiturates Screen Phenytoin Ur Phencyclidine Scrn Ur Amphetamines Screen U Methamphetamin-MDMA U Benzodiazepines Scrn Urine Cocaine Screen U Cannabinoids Screen Ur Drug Screen Comment Ethyl Alcohol COVID-19 (DAVEY) MRSA (PCR) Miscellaneous Test Pending Microbiology 03/23/20 07:10 Mucosa - Nasopharyngeal Respiratory Panel (PCR) - Final 03/22/20 23:56 Sputum, Induced/Lukens Gram Stain - Final 03/22/20 17:10 Urine Catheter - Blackman Streptococcus pneumoniae Antigen (M - Final 03/22/20 17:10 Urine Catheter - [place] Legionella Antigen - Final Clinical Impression(s) from Imaging Studies Chest X-Ray 03/22/20 16:50 IMPRESSION: Mild pulmonary venous congestion. Cardiac enlargement. Electronically Signed: Isabella Castrejon MD at 17:39 EDT Tel , Service support , Chest X-Ray 03/22/20 19:23 IMPRESSION: 1. Tube positions as described above. 2. Cardiac enlargement. Electronically Signed: Isabella Castrejon MD at 20:24 EDT Tel , Service support , Chest X-Ray 03/23/20 05:55 IMPRESSION: Stable cardiac size. Atelectasis and/or infiltrate in the left base with small left pleural effusion. Compression of parenchymal residual infiltrate in the right base. Lines in good position. Electronically Signed: Nanda Restrepo MD at 5:56 EDT , Service support , Medical Necessity - Tobacco Use Smoking Status: Current every day smoker Tobacco Use: Cigarettes, Cigars, Pipe Assessment/Plan All Active Problems Respiratory failure with hypoxia and hypercapnia (Acute) Acute exacerbation of CHF (congestive heart failure) (Acute) COPD exacerbation (Acute) Hyponatremia (Acute) Elevated BP without diagnosis of hypertension (Acute) Hyperglycemia (Acute) Troponin I above reference range (Acute) RECOMMENDATIONS: 1. Continue empiric antimicrobials. 2. Continue diuretic therapy as tolerated by hemodynamics and renal function. 3. Continue scheduled bronchodilators and IV steroids. 4. Continue tube feeds as tolerated. 5. Continue appropriate ICU prophylaxis. 6. Continue nicotine replacement therapy. 7. Wean FiO2 and PEEP to maintain oxygen saturations at or above 90%. IMPRESSIONS: 1. Acute combined respiratory failure Most likely multifactorial in etiology with concern for underlying community- acquired pneumonia and possible decompensated heart failure. In addition, the patient has an extensive smoking history, raising the possibility that he has underlying obstructive lung disease, which she is in a state of exacerbation. Acid-base status has improved with invasive mechanical ventilatory support, which will be continued. Continue to wean FiO2 and PEEP to maintain oxygen saturations at or above 90%. Continue empiric antimicrobials, while awaiting infectious work-up. Continue gentle diuresis as tolerated by hemodynamics and renal function. Scheduled bronchodilators and IV steroids will also be c ontinued. 2. Hyponatremia/hypochloremia Improving. Suspect secondary to hypervolemia. Anticipate improvement with diuresis. Continue to monitor daily. 3. Morbid obesity/tobacco dependency/schizophrenia/questionable obstructive lung disease Complicates care, management, recovery and prognosis. Continue baseline psychiatric medications. Continue tube feeds and obtain physical therapy evaluation once medically stabilized. TIME: 36 minutes of critical care time, independent of procedures, was spent addressing the patient's acute combined respiratory failure, hyponatremia, chronic tobacco dependency, schizophrenia, review of all data and collaboration with the care team. ([id number]) [id number] Critical care first hour
[2020-03-24] MEDS: Ipratropium/Albuterol Sulfate 3 ML AMPUL.NEB INHALATION ×4 (07:03→19:08)
[2020-03-24] MEDS: Chlorhexidine 15 ML PO ×2 (09:55→21:19)
--- NOTE | 2020-03-24 09:57 | PN_ITS ---
Patient Problems: Active and Suspected Problems Respiratory failure with hypoxia and hypercapnia (Acute) Acute exacerbation of CHF (congestive heart failure) (Acute) COPD exacerbation (Acute) Hyponatremia (Acute) Elevated BP without diagnosis of hypertension (Acute) Hyperglycemia (Acute) Subjective: Patient seen and examined. He remains intubated and sedated. RA SS score is 0. He was able to nod or shake his head in response to questions and denied any chest pain, abdominal pain, nausea vomiting. Review of systems otherwise negative. He has been bradycardic with heart rate going down to the 40s and 50s. He had a mild fever of 99.2 Fahrenheit today. Sodium is up to 129 today. CBC shows WBC of 8.4 and hemoglobin of 17.4. Platelets are 313. Vitals/I&O's: Vital Signs Temp Pulse Resp BP Pulse Ox 99.2 F H 50 L 15 137/66 H 93 03/24/20 08:00 03/24/20 09:00 03/24/20 09:00 03/24/20 09:00 03/24/20 09:00 Oxygen Flow Rate (L/min) 6 Oxygen Delivery Method Mechanical Ventilator Weight: 295 lb 6.711 oz Body Mass Index (BMI) 48.8 Finger Stick Blood Glucose 115 Intake and Output for Last 24 Hours 03/22/20 03/23/20 03/24/20 23:59 23:59 23:59 Intake Total 464.31 / 470.91 1351.02 / 1358.67 716.95 / 716.95 Output Total 1650 / 1650 3600 / 3600 1725 / 1725 Balance -1185.69 / -1179.09 -2248.98 / -2241.33 -1008.05 / -1008.05 General: - - intubated and sedated. RASS score is 0 HEENT: Atraumatic, PERRLA, EOMI, Normocephalic Oral: Dry Mucosa Neck: Supple, No JVD, Negative Carotid Bruits Lungs: - - decreased breath sounds bibasally, no wheezes or crackles. Intubated and sedated. Cardiovascular: Regular Rhythm, Normal S1, Normal S2, No murmurs, Bradycardic Abdomen: Bowel Sounds Present, Soft, Non Tender Extremities: No clubbing, No cyanosis, No edema, Capillary Refill Less than 3 Seconds Skin: No rashes, No breakdown Musculoskeletal: No Tenderness to Palpation of Joints or Extremities Lymphatic: No Cervical, Supraclavicular, or Inguinal Adenopathy Neurological: Cranial nerves II-XII grossly intact Psych/Mental Status: - - intubated, sedated, RASS score is 0 Microbiology Past 72 Hours 03/22/20 23:56 Sputum, Induced/Lukens Gram Stain - Final 03/22/20 23:56 Sputum, Induced/Lukens Respiratory Culture - Final Mixed normal respiratory manny. No Streptococcus pneumoniae, beta-hemolytic Streptococcus or Staphylococcus aureus isolated. 03/22/20 17:10 Urine, Clean Catch Urine Culture - Preliminary Culture exhibits no growth. 03/23/20 07:10 Mucosa - Nasopharyngeal Respiratory Panel (PCR) - Final 03/22/20 17:10 Urine Catheter - Blackman Streptococcus pneumoniae Antigen (M - Final 03/22/20 17:10 Urine Catheter - Blackman Legionella Antigen - Final Laboratory Results 03/23/20 11:30: Serum Osmolality Cancelled 03/23/20 11:30: Urine Osmolality Cancelled 03/23/20 11:30: Miscellaneous Test Pending 03/23/20 11:30: Miscellaneous Test Pending 03/24/20 04:45: WBC 8.4, RBC 5.50, Hgb 17.4 H, Hct 50.1, MCV 91.1, MCH 31.6, MCHC 34.7, RDW Std Deviation 48.0 H, RDW Coeff of Dixie 14.3, Plt Count 313, MPV 9.9, Immature Gran % (Auto) 0.200, Neut % (Auto) 83.5 H, Lymph % (Auto) 6.3 L, [place] % (Auto) 9.9, Eos % (Auto) 0.0, Baso % (Auto) 0.1, Absolute Neuts (auto) 7.0, Absolute Lymphs (auto) 0.53 L, Nucleated RBC % 0, Differential Comment SCANNED 03/24/20 04:45: Sodium 129 L, Potassium 4.0, Chloride 90 L, Carbon Dioxide 34.0 H, Anion Gap 5, BUN 17, Creatinine 0.63 L, Estim Creat Clear Calc 127.99, Est GFR (MDRD) Af Amer 175, Est GFR (MDRD) Non-Af 144, BUN/Creatinine Ratio 27.2 H, Glucose 152 H, Calcium 7.9 L Diagnostic Data Chest X-Ray 03/23/20 05:55 IMPRESSION: Stable cardiac size. Atelectasis and/or infiltrate in the left base with small left pleural effusion. Compression of parenchymal residual infiltrate in the right base. Lines in good position. Electronically Signed: Nanda Restrepo MD at 5:56 EDT , Service support , Current Medications Acetaminophen (Tylenol Liquid) 650 mg GT Q6H PRN PRN PRN Reason: Pain Score 1-10/Temp > 100.7 F Al Hydroxide/Mg Hydroxide (Mylanta Ii) 30 ml NG Q6H PRN PRN PRN Reason: Gastric Burning Albuterol Sulfate (Ventolin Aerosols) 2.5 mg INHALATION Q2H PRN PRN PRN Reason: Dyspnea, wheezing Last Admin: 03/22/20 20:33 Dose: 2.5 mg Documented by: Albuterol/Ipratropium (Duoneb) 3 ml INHALATION Q4HWA.RT [facility] Last Admin: 03/24/20 07:03 Dose: 3 ml Documented by: Aspirin (Aspirin, Baby) 81 mg GT DAILY@0800 [facility] Last Admin: 03/23/20 08:55 Dose: 81 mg Documented by: Atorvastatin Calcium (Lipitor) 40 mg NG QHS [facility] Last Admin: 03/23/20 22:08 Dose: 40 mg Documented by: Benztropine Mesylate (Cogentin) 1 mg NG BID [facility] Last Admin: 03/23/20 22:09 Dose: 1 mg Documented by: Chlorhexidine Gluconate () 15 ml PO BID [facility] Last Admin: 03/24/20 09:55 Dose: 15 ml Documented by: Enoxaparin Sodium (Lovenox) 40 mg SC DAILY [facility] Last Admin: 03/23/20 08:58 Dose: 40 mg Documented by: Famotidine (Pepcid) 20 mg NG BID [facility] Last Admin: 03/23/20 22:08 Dose: 20 mg Documented by: Furosemide (Lasix) 40 mg IV BID@1000,1800 [facility] Last Admin: 03/23/20 17:40 Dose: 40 mg Documented by: Guaifenesin (Robitussin) 10 ml NG Q4H PRN PRN PRN Reason: COUGH Haloperidol (Haldol) 10 mg NG BID [facility] Last Admin: 03/23/20 22:08 Dose: 10 mg Documented by: Hydralazine HCl (Apresoline Iv) 10 mg IV Q4H PRN PRN PRN Reason: SBP > 160 Fentanyl Citrate 1,000 mcg/ (Sodium Chloride) 100 mls @ 5 mls/hr CONT INF .Q20H [facility]; Protocol Last Titration: 03/24/20 09:00 Dose: 75 mcg/hr, 7.5 mls/hr Documented by: Sodium Chloride () 250 mls @ 15 mls/hr IV .[id number] PRN PRN Reason: Saline Flush Last Infusion: 03/23/20 14:23 Dose: 0 mls/hr Documented by: Sodium Chloride () 250 mls @ 15 mls/hr IV .[id number] PRN PRN Reason: Additional IVPB Infusion Piperacillin Sod/Tazobactam (Sod 3.375 gm/ Sodium Chloride) 50 mls @ 12.5 mls/hr IV Q8 [facility] Last Admin: 03/24/20 05:30 Dose: 12.5 mls/hr Documented by: Enteral Nutritional Formula (Vital Af 1.2 Dimas Liquid) 1,000 mls @ 65 mls/hr GT .[id number] [facility] Last Admin: 03/24/20 05:31 Dose: Not Given Documented by: Dexmedetomidine HCl 400 mcg/ (Sodium Chloride) 100 mls @ 16.75 mls/hr CONT INF .Q5H59M [facility]; Protocol Last Titration: 03/24/20 09:00 Dose: 0.9 mcg/kg/hr, 30.2 mls/hr Documented by: Lisinopril (Zestril) 20 mg NG DAILY [facility] Last Admin: 03/23/20 08:58 Dose: 20 mg Documented by: Magnesium Hydroxide (Milk Of Magnesia) 30 ml NG DAILY PRN PRN PRN Reason: Constipation Methylprednisolone (Solu-Medrol) 40 mg IV Q8 [facility] Last Admin: 03/24/20 05:30 Dose: 40 mg Documented by: Nicotine (Nicoderm Cq (Pbkc)) 21 mg TRANSDERM. DAILY [facility] Last Admin: 03/23/20 14:17 Dose: 21 mg Documented by: Nitroglycerin (Nitrostat) 0.4 mg SUBLINGUAL Q5M PRN PRN Reason: CARDIAC/CHEST PAIN Ondansetron HCl (Zofran) 4 mg IV Q8H PRN PRN PRN Reason: NAUSEA/VOMITING Prochlorperazine Edisylate (Compazine Iv) 5 mg IV Q4H PRN PRN PRN Reason: Breakthrough Nausea/Vomiting Psyllium Hydrophilic Mucilloid (Metamucil) 1 packet NG DAILY PRN PRN PRN Reason: Constipation Senna/Docusate Sodium (Senokot-S, [place]-Colace) 2 tablet NG BID PRN PRN Reason: Constipation Sodium Chloride () 10 - 40 ml IV UD PRN PRN Reason: SALINE FLUSH Last Admin: 03/24/20 04:23 Dose: 30 ml Documented by: Throat Lozenges (Cepacol Sore Throat Lozenge) 1 lozenge MUCOUS MEM Q2H PRN PRN PRN Reason: SORE THROAT Valproic Acid (Depakene) 500 mg NG Q6 [facility]IE Last Admin: 03/24/20 05:30 Dose: 500 mg Documented by: STROKE Vital Signs/Narrative: Vital Signs Temp Pulse Resp BP Pulse Ox 03/24/20 09:00 50 L 15 137/66 H 93 03/24/20 08:00 99.2 F H 51 L 14 142/62 H 94 03/24/20 07:03 58 L 14 94 03/24/20 07:00 98.9 F 61 14 146/68 H 93 03/24/20 06:00 99.1 F 51 L 14 146/64 H 93 Medical Necessity - Tobacco Use Smoking Status: Current every day smoker Tobacco Use: Cigarettes, Cigars, Pipe Assessment/Plan All Active Problems Respiratory failure with hypoxia and hypercapnia (Acute) Acute exacerbation of CHF (congestive heart failure) (Acute) COPD exacerbation (Acute) Hyponatremia (Acute) Elevated BP without diagnosis of hypertension (Acute) Hyperglycemia (Acute) Troponin I above reference range (Acute) # Acute hypoxic respiratory failure * thought to be multifactorial, due to acute decompensated HF with unknown EF, and acute on chronic COPD exacerbation,a s well as probable pneumonia * remains intubated and sedated * in cumulative negative balance by 4.35L * being diuresed with IV lasix 40mg bid * fluid restriction to 1500 cc daily. monitor intake and output * critical care on board * on breathing treatments with duonebs * on IV zosyn * COVID test negative; on IV solumedrol * 2D echo showed EF of 60% with no evidence of diastolic dysfunction and no regional wall motion abnormalities seen. Unable to estimate right ventricular systolic pressure. * blood cultures pending. * * # Acute hyponatremia: * likely due to fluid overload. being diuresed with IV lasix * has improved to 129 today. * continue diuresing with IV lasix * # Acute heart failure: as under respiratory failure # Acute on chronic COPD exacerbation: as under respiratory failure #Elevated BP: has no diagnosis of hypertension.BP now in normal range. on lisinopril and metoprolol #Schizophrenia: On Haldol, Depakote and benztropine as well as Xanax. #Hyperglycemia:resolved. A1C checked is only 5.5. Will monitor # Morbid obesity: BMI is 48. complicates acute care and management. DVT prophylaxis; lovenox Code status: full code Inpatient E&M: 36790 Subs Hosp L3
[2020-03-24] MEDS: Aspirin 81 MG TAB.CHEW GT (09:59)
[2020-03-24] MEDS: Lisinopril 20 MG Tablet NG (09:59)
[2020-03-24] MEDS: Haloperidol 5 MG Tablet 10 MG NG ×2 (09:59→21:07)
[2020-03-24] MEDS: Benztropine 2 MG Tablet 1 MG NG ×2 (09:59→21:06)
[2020-03-24] MEDS: Enoxaparin 40 MG/0.4 ML Syringe SC (09:59)
[2020-03-24] MEDS: Famotidine 20 MG Tablet NG ×2 (10:00→21:06)
[2020-03-24] MEDS: Furosemide 40 MG/4 ML Vial IV ×2 (10:00→18:04)
--- NOTE | 2020-03-24 10:40 | CASEMGMT ---
NIKOLAY SMITH assessment: Phone interview with patient's for initial transition planning/care coordination assessment. NIKOLAY SMITH introduced self and role at [facility], voices understanding and consents to assessment at this time. Pt is still on the vent at this time. is A/Ox4 at this time and answers all questions appropriately at this time. Care providers, pharmacy, and demographics verified at this time. Presentation: Pt having difficulty breathing for 2 weeks, audible wheezing per EMS, pt received aerosol tx, pt confused Admitting dx: Resp failure, suspect CHF/COPD exac PCP: Pt does not have current PCP, list to be given to when she is able to come to hospital. Specialists: amy [place] at [facility] Preferred Pharmacy: [facility] [place] Insurance: [facility] A/B Prescription Benefit: [employer] Living Will/HPOA: states pt does not have a LW but states she is his HPOA. LNOK: Lawanda Alvarenga, /HPOA; Linn Mo, mother Living Arrangements: Pt lives with in mobile [facility] with 5 steps in and states no concerns at home at this time. states that pt does not go out of home. She states that she assists him with showering and sets him up with meals/pop/cigarettes/cigars/pipe every day. states she stops at home during work day to let dog out as pt cannot. states she gives him meds at appropriate times. She states that she has tried to talk to pt about eating/drinking more healthy but pt will not comply. believes that pt's mental illness makes him think that he has to smoke constantly and eat/drink non-healthy foods. states that she has been with/caring for pt for 30 years. Transportation: Pt states does not drive but does and states no transportation concerns at this time. DME/HHC: Pt has not current DME at this time. states no hx of HHC or SNF in the past and states she does not want to send him to SNF. states she is a nurse assistant superintendent and will care for pt. states no concerns with pt going home at time of discharge. Pt is disabled. Pt smokes a pack of cigarettes daily as well as a pipe and cigars in between cigarettes. states that pt feels like he has to 'smoke to breath.' states that pt will not agree to home oxygen because he will not stop smoking and he is afraid he will 'blow up our house.' Pt does not drink ETOH. states that she has been waiting for the 'conference call' with the ICU this am. Call to ICU to speak with pt's nurse, Sheri, to notify that awaiting call and Sarah answered and stated Sheri is in an isolation room at this time. Sarah states she will give message to Sheri to call to update. CM to follow PT/OT evals, home oxygen testing, and any further discharge planning/needs. Advised to ask for CM if any further questions/concerns/needs arise, voices understanding. Goal: Home Plan: TBD, pending PT/OT evals, oxygen testing.
--- NOTE | 2020-03-24 12:12 | NURSING ---
Precedex titrations 1030: Rass -1, drip infusing at 0.8mcg/kg/hr 1045: Rass -1, drip infusing at 0.8mcg/kg/hr 1100: Rass -1, drip infusing at 0.8mcg/kg/hr
[2020-03-24] MEDS: Dexmedetomidine 1,000 mcg in 0.9% NS 240 mL 30.2 MCG CONT INF ×2 (15:00→23:09)
[2020-03-24] MEDS: Vital AF 1.2 Cal Liquid 1,000 ML 55 ML GT (15:58)
[2020-03-24] MEDS: Atorvastatin Calcium 40 MG Tablet NG (21:06)
[2020-03-25] VITALS (40 sets, daily range): BP systolic 128–190; BP diastolic 55–100; PULSE 49–79; RESP 12–20; TEMP 36.8–38.1; O2SAT 82–97
[2020-03-25] MEDS: Valproic Acid 250 MG/5 ML UDC 500 MG NG ×2 (00:26→05:10)
[2020-03-25 04:14] LABS: Absolute Lymphocyte Count 0.52 X10^3/uL (0.83-4.51); Absolute Neutrophil Count 8.3 X10^3/uL (2.0-7.7); Basophil# 0.02 X10^3/uL; Basophil% 0.2 % (0-1); Differential Indicated SCAN CRITERIA MET; Hematocrit 52.3 % (40-54); Hemoglobin 17.8 g/dL (13.0-16.5); Lymphocyte # 0.52 X10^3/ul (4.0); Lymphocyte % 5.2 % (19-41); Mean Corpuscular Hgb 31.4 pg (27.0-32.0); Mean Corpuscular Volume 92.4 fL (80-94); Mean Platelet Vol. 9.6 fl (6.2-12.0); Monocyte# 1.22 X10^3/uL; Monocyte% 12.1 % (0-10); NRBC Flagged by Analyzer 0 % (0-5); Neutrophil # 8.27 X10^3/uL (2.7-7.7); POSITIVE DIFFERENTIAL YES; POSITIVE MORPHOLOGY YES; Platelet Count 337 K/mm3 (150-450); RBC Distribution Width CV 14.7 % (11.6-14.6); RBC Distribution Width SD 49.9 fl (35.1-43.9); Red Blood Count 5.66 M/mm3 (4.6-6.2); White Blood Count 10.1 K/mm3 (4.4-11.0)
[2020-03-25 04:27] LABS: Anion Gap 5 (5-15); BUN 18 mg/dL (7-18); BUN/Creat Ratio 24.7 RATIO (10-20); Calcium,Total 7.6 mg/dL (8.5-10.1); Chloride 95 mmol/L (98-107); Creatinine, Serum 0.73 mg/dL (0.70-1.30); Differential Comment SCANNED; EST Glomerular Filtration Rate 121 mL/min (>60); Est Glom Filt Rate - Afr Amer 146 mL/min (>60); Estimated Creatinine Clearance 110.46 ml/min; Glucose 153 mg/dL (74-106); Potassium 3.9 mmol/L (3.5-5.1); Sodium Level 134 mmol/L (136-145)
[2020-03-25] MEDS: 0.9% Saline Lock 10 ML Syringe IV ×5 (05:11→20:54)
--- NOTE | 2020-03-25 05:58 | PN_ITS ---
Subjective: The patient was seen and examined at the bedside this morning. Events from the last 24 hours have been reviewed. The patient currently has a low-grade fever but remains hemodynamically stable. He remains on assist control mode of mechanical ventilation with an FiO2 requirement of 50% and PEEP of 10. The patient is currently documented to be overall net -5 L for the hospital admission. The patient continues to tolerate tube feeds. Objective: The patient's most recent lab work, culture data and imaging studies have all been personally reviewed. Surface echocardiogram revealed normal LV size and function with an ejection fraction of 60%. Coronavirus PCR was negative on March 22. Respiratory viral panel was negative. Blood, urine and sputum cultures have shown no growth to date. General: - - Remains intubated, sedated and mechanically ventilated. No ventilator dyssynchrony noted. HEENT: Atraumatic, PERRLA, Normocephalic Oral: Moist Mucosa, - - Stable endotracheal and OG tubes. Neck: Supple, No Nodes, Trachea Midline Lungs: No rhonchi, No wheeze, No rales, Diminished Cardiovascular: Normal S1, Normal S2, Bradycardic Abdomen: Bowel Sounds Present, Soft, Non Tender, Obese Extremities: No clubbing, No cyanosis Skin: No breakdown Musculoskeletal: No Muscle Wasting Neurological: - - No focal neurological deficits. Will arouse and follow simple commands. RASS -1 Vital Signs Temp Pulse Resp BP Pulse Ox 100.3 F H 52 L 15 136/60 H 95 03/25/20 05:00 03/25/20 05:00 03/25/20 05:00 03/25/20 05:00 03/25/20 05:00 Oxygen Flow Rate (L/min) 6 Oxygen Delivery Method Mechanical Ventilator Weight: 289 lb 3.944 oz Body Mass Index (BMI) 48.8 Finger Stick Blood Glucose 115 Intake and Output for Last 24 Hours 03/23/20 03/24/20 03/25/20 23:59 23:59 23:59 Intake Total 1351.02 / 1358.67 3455.53 / 3491.20 780.87 / 780.87 Output Total 3600 / 3600 5300 / 5300 450 / 450 Balance -2248.98 / -2241.33 -1844.47 / -1808.80 330.87 / 330.87 Labs (Last 48 Hours) 03/23/20 03/23/20 03/23/20 11:30 11:30 11:30 WBC RBC Hgb Hct MCV MCH MCHC RDW Std Deviation RDW Coeff of Dixie Plt Count MPV Immature Gran % (Auto) Neut % (Auto) Lymph % (Auto) [place] % (Auto) Eos % (Auto) Baso % (Auto) Absolute Neuts (auto) Absolute Lymphs (auto) Nucleated RBC % Differential Comment Sodium Potassium Chloride Carbon Dioxide Anion Gap BUN Creatinine Estim Creat Clear Calc Est GFR (MDRD) Af Amer Est GFR (MDRD) Non-Af BUN/Creatinine Ratio Glucose Serum Osmolality Cancelled Calcium Urine Osmolality Cancelled Miscellaneous Test Pending 03/23/20 03/24/20 03/24/20 11:30 04:45 04:45 WBC 8.4 RBC 5.50 Hgb 17.4 H Hct 50.1 MCV 91.1 MCH 31.6 MCHC 34.7 RDW Std Deviation 48.0 H RDW Coeff of Dixie 14.3 Plt Count 313 MPV 9.9 Immature Gran % (Auto) 0.200 Neut % (Auto) 83.5 H Lymph % (Auto) 6.3 L [place] % (Auto) 9.9 Eos % (Auto) 0.0 Baso % (Auto) 0.1 Absolute Neuts (auto) 7.0 Absolute Lymphs (auto) 0.53 L Nucleated RBC % 0 Differential Comment SCANNED Sodium 129 L Potassium 4.0 Chloride 90 L Carbon Dioxide 34.0 H Anion Gap 5 BUN 17 Creatinine 0.63 L Estim Creat Clear Calc 127.99 Est GFR (MDRD) Af Amer 175 Est GFR (MDRD) Non-Af 144 BUN/Creatinine Ratio 27.2 H Glucose 152 H Serum Osmolality Calcium 7.9 L Urine Osmolality Miscellaneous Test Pending 03/25/20 03/25/20 04:05 04:05 WBC 10.1 RBC 5.66 Hgb 17.8 H Hct 52.3 MCV 92.4 MCH 31.4 MCHC 34.0 RDW Std Deviation 49.9 H RDW Coeff of Dixie 14.7 H Plt Count 337 MPV 9.6 Immature Gran % (Auto) 0.500 Neut % (Auto) 82.0 H Lymph % (Auto) 5.2 L [place] % (Auto) 12.1 H Eos % (Auto) 0.0 Baso % (Auto) 0.2 Absolute Neuts (auto) 8.3 H Absolute Lymphs (auto) 0.52 L Nucleated RBC % 0 Differential Comment SCANNED Sodium 134 L Potassium 3.9 Chloride 95 L Carbon Dioxide 34.0 H Anion Gap 5 BUN 18 Creatinine 0.73 Estim Creat Clear Calc 110.46 Est GFR (MDRD) Af Amer 146 Est GFR (MDRD) Non-Af 121 BUN/Creatinine Ratio 24.7 H Glucose 153 H Serum Osmolality Calcium 7.6 L Urine Osmolality Miscellaneous Test Microbiology 03/22/20 23:56 Sputum, Induced/Lukens Gram Stain - Final 03/22/20 23:56 Sputum, Induced/Lukens Respiratory Culture - Final Mixed normal respiratory manny. No Streptococcus pneumoniae, beta-hemolytic Streptococcus or Staphylococcus aureus isolated. 03/22/20 17:10 Urine, Clean Catch Urine Culture - Preliminary Culture exhibits no growth. 03/23/20 07:10 Mucosa - Nasopharyngeal Respiratory Panel (PCR) - Final Clinical Impression(s) from Imaging Studies Chest X-Ray 03/22/20 16:50 IMPRESSION: Mild pulmonary venous congestion. Cardiac enlargement. Electronically Signed: Isabella Castrejon MD at 17:39 EDT Tel , Service support , Chest X-Ray 03/22/20 19:23 IMPRESSION: 1. Tube positions as described above. 2. Cardiac enlargement. Electronically Signed: Isabella Castrejon MD at 20:24 EDT Tel , Service support , Chest X-Ray 03/23/20 05:55 IMPRESSION: Stable cardiac size. Atelectasis and/or infiltrate in the left base with small left pleural effusion. Compression of parenchymal residual infiltrate in the right base. Lines in good position. Electronically Signed: Nanda Restrepo MD at 5:56 EDT , Service support , Medical Necessity - Tobacco Use Smoking Status: Current every day smoker Tobacco Use: Cigarettes, Cigars, Pipe Assessment/Plan All Active Problems Respiratory failure with hypoxia and hypercapnia (Acute) Acute exacerbation of CHF (congestive heart failure) (Acute) COPD exacerbation (Acute) Hyponatremia (Acute) Elevated BP without diagnosis of hypertension (Acute) Hyperglycemia (Acute) Troponin I above reference range (Acute) RECOMMENDATIONS: 1. Continue antimicrobials, with plans to complete 7-day treatment course. 2. Continue diuretic therapy as tolerated by hemodynamics and renal function. 3. Continue scheduled bronchodilators and IV steroids. 4. Continue tube feeds as tolerated. 5. Continue appropriate ICU prophylaxis. 6. Continue nicotine replacement therapy. 7. Wean FiO2 and PEEP to maintain oxygen saturations at or above 90%. IMPRESSIONS: 1. Acute combined respiratory failure Most likely multifactorial in etiology with concern for underlying community- acquired pneumonia and possible decompensated heart failure. In addition, the patient has an extensive smoking history, raising the possibility that he has underlying obstructive lung disease, which she is in a state of exacerbation. Acid-base status has improved with invasive mechanical ventilatory support, which will be continued. Continue to wean FiO2 and PEEP to maintain oxygen saturations at or above 90%. Continue empiric antimicrobials x 7 days. Continue gentle diuresis as tolerated by hemodynamics and renal function. Scheduled bronchodilators and IV steroids will also be continued. 2. Hyponatremia/hypochloremia Improving. Suspect secondary to hypervolemia. Anticipate improvement with diuresis. Continue to monitor daily. 3. Morbid obesity/tobacco dependency/schizophrenia/questionable obstructive lung disease Complicates care, management, recovery and prognosis. Continue baseline psychiatric medications. Continue tube feeds as tolerated. TIME: 35 minutes of critical care time, independent of procedures, was spent addressing the patient's acute combined respiratory failure, hyponatremia, chronic tobacco dependency, schizophrenia, review of all data and collaboration with the care team. ([id number]) [id number] Critical care first hour
[2020-03-25] MEDS: Ipratropium/Albuterol Sulfate 3 ML AMPUL.NEB INHALATION ×2 (07:05→16:29)
[2020-03-25] MEDS: Dexmedetomidine 1,000 mcg in 0.9% NS 240 mL 23.5 MCG CONT INF (09:38)
[2020-03-25] MEDS: Chlorhexidine 15 ML PO (09:39)
[2020-03-25] MEDS: Aspirin 81 MG TAB.CHEW GT (09:40)
[2020-03-25] MEDS: Haloperidol 5 MG Tablet 10 MG NG (09:41)
[2020-03-25] MEDS: Famotidine 20 MG Tablet NG (09:41)
[2020-03-25] MEDS: Benztropine 2 MG Tablet 1 MG NG (09:41)
[2020-03-25] MEDS: Furosemide 40 MG/4 ML Vial IV ×2 (09:41→17:16)
[2020-03-25] MEDS: Enoxaparin 40 MG/0.4 ML Syringe SC (09:42)
[2020-03-25] MEDS: Lisinopril 20 MG Tablet NG (09:42)
[2020-03-25] MEDS: Senna/Docusate Sodium 1 Tablet 2 TABLET PO ×2 (09:46→20:52)
[2020-03-25] MEDS: Vital AF 1.2 Cal Liquid 1,000 ML 65 ML GT (09:46)
--- NOTE | 2020-03-25 09:57 | PN_ITS ---
Patient Problems: Active and Suspected Problems Respiratory failure with hypoxia and hypercapnia (Acute) Acute exacerbation of CHF (congestive heart failure) (Acute) COPD exacerbation (Acute) Hyponatremia (Acute) Elevated BP without diagnosis of hypertension (Acute) Hyperglycemia (Acute) Subjective: Patient seen and examined. He remains intubated and sedated. RA SS score is 0. He has a mild fever of 100.3 Fahrenheit today. He remains slightly bradycardic with heart rate of 52 respiratory rate of 17. Labs also reviewed. Sodium is up to 134 and WBC is 10.1. Vitals/I&O's: Vital Signs Temp Pulse Resp BP Pulse Ox 100.3 F H 52 L 17 128/55 H 94 03/25/20 08:00 03/25/20 08:00 03/25/20 08:00 03/25/20 08:00 03/25/20 08:00 Oxygen Flow Rate (L/min) 6 Oxygen Delivery Method Mechanical Ventilator Weight: 289 lb 3.944 oz Body Mass Index (BMI) 48.8 Finger Stick Blood Glucose 115 Intake and Output for Last 24 Hours 03/23/20 03/24/20 03/25/20 23:59 23:59 23:59 Intake Total 1351.02 / 1358.67 3455.53 / 3491.20 1057.83 / 1057.83 Output Total 3600 / 3600 5300 / 5300 700 / 700 Balance -2248.98 / -2241.33 -1844.47 / -1808.80 357.83 / 357.83 General: - - intubated and sedated. RASS score is 0 HEENT: Atraumatic, PERRLA, EOMI, Normocephalic Oral: Dry Mucosa Neck: Supple, No JVD, Negative Carotid Bruits Lungs: - - decreased breath sounds bibasally, no wheezes or crackles. Intubated and sedated. Cardiovascular: Regular Rhythm, Normal S1, Normal S2, No murmurs, Bradycardic Abdomen: Bowel Sounds Present, Soft, Non Tender Extremities: No clubbing, No cyanosis, No edema, Capillary Refill Less than 3 Seconds Skin: No rashes, No breakdown Musculoskeletal: No Tenderness to Palpation of Joints or Extremities Lymphatic: No Cervical, Supraclavicular, or Inguinal Adenopathy Neurological: Cranial nerves II-XII grossly intact Psych/Mental Status: - - intubated, sedated, RASS score is 0 Microbiology Past 72 Hours 03/22/20 17:10 Urine, Clean Catch Urine Culture - Final Culture exhibits no growth. 03/22/20 16:15 Blood Culture (Wb) - Anticubital Right Blood Culture - Preliminary No growth in 48 hours. 03/22/20 16:10 Blood Culture (Wb) - Left Hand Blood Culture - Preliminary No growth in 48 hours. 03/22/20 23:56 Sputum, Induced/Lukens Gram Stain - Final 03/22/20 23:56 Sputum, Induced/Lukens Respiratory Culture - Final Mixed normal respiratory manny. No Streptococcus pneumoniae, beta-hemolytic Streptococcus or Staphylococcus aureus isolated. 03/23/20 07:10 Mucosa - Nasopharyngeal Respiratory Panel (PCR) - Final 03/22/20 17:10 Urine Catheter - Blackman Streptococcus pneumoniae Antigen (M - Final 03/22/20 17:10 Urine Catheter - Blackman Legionella Antigen - Final Laboratory Results 03/25/20 04:05: WBC 10.1, RBC 5.66, Hgb 17.8 H, Hct 52.3, MCV 92.4, MCH 31.4, MCHC 34.0, RDW Std Deviation 49.9 H, RDW Coeff of Dixie 14.7 H, Plt Count 337, MPV 9.6, Immature Gran % (Auto) 0.500, Neut % (Auto) 82.0 H, Lymph % (Auto) 5.2 L, [place] % (Auto) 12.1 H, Eos % (Auto) 0.0, Baso % (Auto) 0.2, Absolute Neuts (auto) 8.3 H, Absolute Lymphs (auto) 0.52 L, Nucleated RBC % 0, Differential Comment SCANNED 03/25/20 04:05: Sodium 134 L, Potassium 3.9, Chloride 95 L, Carbon Dioxide 34.0 H, Anion Gap 5, BUN 18, Creatinine 0.73, Estim Creat Clear Calc 110.46, Est GFR (MDRD) Af Amer 146, Est GFR (MDRD) Non-Af 121, BUN/Creatinine Ratio 24.7 H, Glucose 153 H, Calcium 7.6 L Diagnostic Data Chest X-Ray 03/23/20 05:55 IMPRESSION: Stable cardiac size. Atelectasis and/or infiltrate in the left base with small left pleural effusion. Compression of parenchymal residual infiltrate in the right base. Lines in good position. Electronically Signed: Nanda Restrepo MD at 5:56 EDT , Service support , Current Medications Acetaminophen (Tylenol Liquid) 650 mg GT Q6H PRN PRN PRN Reason: Pain Score 1-10/Temp > 100.7 F Al Hydroxide/Mg Hydroxide (Mylanta Ii) 30 ml NG Q6H PRN PRN PRN Reason: Gastric Burning Albuterol Sulfate (Ventolin Aerosols) 2.5 mg INHALATION Q2H PRN PRN PRN Reason: Dyspnea, wheezing Last Admin: 03/22/20 20:33 Dose: 2.5 mg Documented by: Albuterol/Ipratropium (Duoneb) 3 ml INHALATION Q4HWA.RT [facility] Last Admin: 03/25/20 07:05 Dose: 3 ml Documented by: Aspirin (Aspirin, Baby) 81 mg GT DAILY@0800 [facility] Last Admin: 03/25/20 09:40 Dose: 81 mg Documented by: Atorvastatin Calcium (Lipitor) 40 mg NG QHS [facility] Last Admin: 03/24/20 21:06 Dose: 40 mg Documented by: Benztropine Mesylate (Cogentin) 1 mg NG BID [facility] Last Admin: 03/25/20 09:41 Dose: 1 mg Documented by: Chlorhexidine Gluconate () 15 ml PO BID [facility] Last Admin: 03/25/20 09:39 Dose: 15 ml Documented by: Enoxaparin Sodium (Lovenox) 40 mg SC DAILY [facility] Last Admin: 03/25/20 09:42 Dose: 40 mg Documented by: Famotidine (Pepcid) 20 mg NG BID [facility] Last Admin: 03/25/20 09:41 Dose: 20 mg Documented by: Furosemide (Lasix) 40 mg IV BID@1000,1800 [facility] Last Admin: 03/25/20 09:41 Dose: 40 mg Documented by: Guaifenesin (Robitussin) 10 ml NG Q4H PRN PRN PRN Reason: COUGH Haloperidol (Haldol) 10 mg NG BID [facility] Last Admin: 03/25/20 09:41 Dose: 10 mg Documented by: Hydralazine HCl (Apresoline Iv) 10 mg IV Q4H PRN PRN PRN Reason: SBP > 160 Fentanyl Citrate 1,000 mcg/ (Sodium Chloride) 100 mls @ 5 mls/hr CONT INF .Q20H [facility]; Protocol Last Titration: 03/25/20 09:00 Dose: Infused Documented by: Sodium Chloride () 250 mls @ 15 mls/hr IV .[id number] PRN PRN Reason: Saline Flush Last Infusion: 03/25/20 05:11 Dose: 0 mls/hr Documented by: Sodium Chloride () 250 mls @ 15 mls/hr IV .[id number] PRN PRN Reason: Additional IVPB Infusion Piperacillin Sod/Tazobactam (Sod 3.375 gm/ Sodium Chloride) 50 mls @ 12.5 mls/hr IV Q8 [facility] Last Admin: 03/25/20 05:10 Dose: 12.5 mls/hr Documented by: Enteral Nutritional Formula (Vital Af 1.2 Dimas Liquid) 1,000 mls @ 65 mls/hr GT .[id number] [facility] Last Admin: 03/25/20 09:46 Dose: 65 mls/hr Documented by: Dexmedetomidine HCl 1,000 mcg/ (Sodium Chloride) 250 mls @ 26.8 mls/hr CONT INF .Q9H20M [facility]; Protocol Last Admin: 03/25/20 09:38 Dose: 0.7 mcg/kg/hr, 23.5 mls/hr Documented by: Lisinopril (Zestril) 20 mg NG DAILY [facility] Last Admin: 03/25/20 09:42 Dose: 20 mg Documented by: Magnesium Hydroxide (Milk Of Magnesia) 30 ml NG DAILY PRN PRN PRN Reason: Constipation Methylprednisolone (Solu-Medrol) 40 mg IV Q8 [facility] Last Admin: 03/25/20 05:10 Dose: 40 mg Documented by: Nicotine (Nicoderm Cq (Pbkc)) 21 mg TRANSDERM. DAILY [facility] Last Admin: 03/25/20 09:42 Dose: 21 mg Documented by: Nitroglycerin (Nitrostat) 0.4 mg SUBLINGUAL Q5M PRN PRN Reason: CARDIAC/CHEST PAIN Ondansetron HCl (Zofran) 4 mg IV Q8H PRN PRN PRN Reason: NAUSEA/VOMITING Prochlorperazine Edisylate (Compazine Iv) 5 mg IV Q4H PRN PRN PRN Reason: Breakthrough Nausea/Vomiting Psyllium Hydrophilic Mucilloid (Metamucil) 1 packet NG DAILY PRN PRN PRN Reason: Constipation Senna/Docusate Sodium (Senokot-S, [place]-Colace) 2 tablet NG BID PRN PRN Reason: Constipation Senna/Docusate Sodium (Senokot-S, [place]-Colace) 2 tablet PO BID [facility] Last Admin: 03/25/20 09:46 Dose: 2 tablet Documented by: Sodium Chloride () 10 - 40 ml IV UD PRN PRN Reason: SALINE FLUSH Last Admin: 03/25/20 09:46 Dose: 20 ml Documented by: Throat Lozenges (Cepacol Sore Throat Lozenge) 1 lozenge MUCOUS MEM Q2H PRN PRN PRN Reason: SORE THROAT Valproic Acid (Depakene) 500 mg NG Q6 [facility] Last Admin: 03/25/20 05:10 Dose: 500 mg Documented by: STROKE Vital Signs/Narrative: Vital Signs Temp Pulse Resp BP Pulse Ox 03/25/20 08:00 100.3 F H 52 L 17 128/55 H 94 03/25/20 07:51 53 L 03/25/20 07:05 63 16 94 03/25/20 07:00 100.5 F H 54 L 15 150/67 H 94 03/25/20 06:00 100.4 F H 49 L 15 147/61 H 95 Medical Necessity - Tobacco Use Smoking Status: Current every day smoker Tobacco Use: Cigarettes, Cigars, Pipe Assessment/Plan All Active Problems Respiratory failure with hypoxia and hypercapnia (Acute) Acute exacerbation of CHF (congestive heart failure) (Acute) COPD exacerbation (Acute) Hyponatremia (Acute) Elevated BP without diagnosis of hypertension (Acute) Hyperglycemia (Acute) Troponin I above reference range (Acute) # Acute hypoxic respiratory failure * thought to be multifactorial, due to acute decompensated HF with preserved EF, and acute on chronic COPD exacerbation,a s well as probable pneumonia * remains intubated and sedated * in cumulative negative balance by 4.9L * on IV lasix 40mg bid * fluid restriction to 1500 cc daily. monitor intake and output * critical care on board * on breathing treatments with duonebs * on IV zosyn * COVID test negative; on IV solumedrol * 2D echo showed EF of 60% with no evidence of diastolic dysfunction and no regional wall motion abnormalities seen. Unable to estimate right ventricular systolic pressure. * blood cultures negative * * # Acute hyponatremia: * resolved. sodiuim is 134 today. Resolved with diuresis * # Acute heart failure with preserved EF: as under respiratory failure # Acute on chronic COPD exacerbation: as under respiratory failure #Hypertension: on lisinopril and metoprolol #Schizophrenia: On Haldol, Depakote and benztropine as well as Xanax. #Hyperglycemia:resolved. A1C checked is only 5.5. Will monitor # Morbid obesity: BMI is 48. complicates acute care and management. DVT prophylaxis; lovenox Code status: full code Inpatient E&M: 72929 Subs Hosp L3
--- NOTE | 2020-03-25 10:20 | NURSING ---
Pt seen on camera kicking and moving arms. Upon entering room pt was bent over and had ET in hand and removed ET himself. RT and Dr. Mcknight notified.
--- NOTE | 2020-03-25 11:26 | NURSING ---
Patient pulling on Blackman, insists on it being removed. Concerned that patient may injure himself by pulling on catheter, Hiral d/c'd.
[2020-03-25] MEDS: Dexmedetomidine 1,000 mcg in 0.9% NS 240 mL 50.3 MCG CONT INF ×2 (15:41→20:55)
--- NOTE | 2020-03-25 16:31 | CPS ---
tolerated treatreatment by mask for about 3 minutes.
[2020-03-25] MEDS: hydrALAZINE 20 MG/ML Vial 10 MG IV ×2 (17:10→22:53)
--- NOTE | 2020-03-25 18:28 | NURSING ---
Refusing to wear oxygen or pulse ox censor despite multiple attempts. Becoming somewhat aggressive with staff.
[2020-03-25] MEDS: Haloperidol 5 MG Tablet 10 MG PO (20:52)
[2020-03-25] MEDS: Famotidine 20 MG Tablet PO (20:52)
[2020-03-25] MEDS: Divalproex Sodium 250 MG Tablet 1000 MG PO (20:53)
[2020-03-25] MEDS: Atorvastatin Calcium 40 MG Tablet PO (20:53)
[2020-03-25] MEDS: Benztropine 2 MG Tablet 1 MG PO (20:53)
[2020-03-26] VITALS (19 sets, daily range): BP systolic 97–163; BP diastolic 54–104; PULSE 51–77; RESP 14–20; TEMP 36.7–37.3; O2SAT 89–96
[2020-03-26] MEDS: QUEtiapine 25 MG Tablet 50 MG PO ×3 (00:39→21:51)
[2020-03-26] MEDS: Dexmedetomidine 1,000 mcg in 0.9% NS 240 mL 50.3 MCG CONT INF ×2 (01:55→06:45)
[2020-03-26 04:08] LABS: Absolute Neutrophil Count 15.1 X10^3/uL (2.0-7.7); Basophil# 0.02 X10^3/uL; Basophil% 0.1 % (0-1); Lymphocyte % 5.4 % (19-41); Mean Corp Hgb Conc 33.5 g/dL (32-36); Mean Corpuscular Hgb 31.4 pg (27.0-32.0); Mean Corpuscular Volume 93.8 fL (80-94); Mean Platelet Vol. 9.2 fl (6.2-12.0); Monocyte# 2.33 X10^3/uL; Monocyte% 12.6 % (0-10); NRBC Flagged by Analyzer 0 % (0-5); Neutrophil # 15.12 X10^3/uL (2.7-7.7); Neutrophil % 81.4 % (47-70); POSITIVE DIFFERENTIAL YES; Platelet Count 317 K/mm3 (150-450); RBC Distribution Width CV 15.4 % (11.6-14.6); RBC Distribution Width SD 51.1 fl (35.1-43.9); Red Blood Count 6.11 M/mm3 (4.6-6.2); White Blood Count 18.6 K/mm3 (4.4-11.0)
[2020-03-26 04:16] LABS: Hematocrit 57.3 % (40-54)
[2020-03-26 04:18] LABS: Differential Indicated SCAN CRITERIA MET
[2020-03-26 04:22] LABS: Hemoglobin 19.2 g/dL (13.0-16.5)
[2020-03-26 04:30] LABS: Anion Gap 6 (5-15); BUN 14 mg/dL (7-18); BUN/Creat Ratio 26.6 RATIO (10-20); Chloride 98 mmol/L (98-107); Creatinine, Serum 0.53 mg/dL (0.70-1.30); EST Glomerular Filtration Rate 177 mL/min (>60); Est Glom Filt Rate - Afr Amer 214 mL/min (>60); Estimated Creatinine Clearance 152.14 ml/min; Glucose 125 mg/dL (74-106); Potassium 4.4 mmol/L (3.5-5.1); Sodium Level 134 mmol/L (136-145)
[2020-03-26 04:56] LABS: Differential Comment SCANNED
--- NOTE | 2020-03-26 06:12 | PN_ITS ---
Subjective: The patient was seen and examined at the bedside this morning. Events from the last 24 hours have been reviewed. The patient is currently afebrile, hemodynamically stable and maintaining appropriate oxygen saturations on 4 L/min via nasal cannula. The patient did self extubate yesterday afternoon, but is done fairly well from a respiratory perspective. Although he did have some behavioral outbursts overnight, per nursing report, he was redirectable. He remains on Precedex and was started on Seroquel last evening as well. The patient is currently documented to be overall net -5 L for the hospital admission. Objective: The patient's most recent lab work, culture data and imaging studies have all been personally reviewed. Surface echocardiogram revealed normal LV size and function with an ejection fraction of 60%. Coronavirus PCR was negative on March 22. Respiratory viral panel was negative. Blood, urine and sputum cultures have shown no growth to date. General: Alert, Cooperative, - - Mumbling incoherently HEENT: Atraumatic, Normocephalic Oral: Dry Mucosa Neck: Supple, No Nodes, Trachea Midline Lungs: No rhonchi, No wheeze, No rales, Diminished, - - Fair inspiratory effort Cardiovascular: Regular rate, Regular Rhythm Abdomen: Bowel Sounds Present, Soft, Non Tender, Obese Extremities: No clubbing, No cyanosis, No edema Skin: No breakdown Musculoskeletal: No Muscle Wasting Lymphatic: No Cervical, Supraclavicular, or Inguinal Adenopathy Neurological: - - No focal neurological deficits. Psych/Mental Status: Impulsive, Restless Vital Signs Temp Pulse Resp BP Pulse Ox 98.7 F 61 15 148/87 H 96 03/26/20 00:00 03/26/20 05:00 03/26/20 05:00 03/26/20 05:00 03/26/20 05:00 Oxygen Flow Rate (L/min) 4 Oxygen Delivery Method Nasal Cannula Weight: 279 lb 5.211 oz Body Mass Index (BMI) 48.8 Finger Stick Blood Glucose 115 Intake and Output for Last 24 Hours 03/24/20 03/25/20 03/26/20 23:59 23:59 23:59 Intake Total 3455.53 / 3491.20 3085.20 / 3135.50 471.80 / 471.80 Output Total 5300 / 5300 3375 / 3375 Balance -1844.47 / -1808.80 -289.80 / -239.50 471.80 / 471.80 Labs (Last 48 Hours) 03/25/20 03/25/20 03/26/20 04:05 04:05 04:00 WBC 10.1 18.6 H RBC 5.66 6.11 Hgb 17.8 H 19.2 H* Hct 52.3 57.3 H MCV 92.4 93.8 MCH 31.4 31.4 MCHC 34.0 33.5 RDW Std Deviation 49.9 H 51.1 H RDW Coeff of Dixie 14.7 H 15.4 H Plt Count 337 317 MPV 9.6 9.2 Immature Gran % (Auto) 0.500 0.500 Neut % (Auto) 82.0 H 81.4 H Lymph % (Auto) 5.2 L 5.4 L [place] % (Auto) 12.1 H 12.6 H Eos % (Auto) 0.0 0.0 Baso % (Auto) 0.2 0.1 Absolute Neuts (auto) 8.3 H 15.1 H Absolute Lymphs (auto) 0.52 L 1.00 Nucleated RBC % 0 0 Differential Comment SCANNED SCANNED Diff Path Review May foll Sodium 134 L Potassium 3.9 Chloride 95 L Carbon Dioxide 34.0 H Anion Gap 5 BUN 18 Creatinine 0.73 Estim Creat Clear Calc 110.46 Est GFR (MDRD) Af Amer 146 Est GFR (MDRD) Non-Af 121 BUN/Creatinine Ratio 24.7 H Glucose 153 H Calcium 7.6 L 03/26/20 04:00 WBC RBC Hgb Hct MCV MCH MCHC RDW Std Deviation RDW Coeff of [place]ie Plt Count MPV Immature Gran % (Auto) Neut % (Auto) Lymph % (Auto) [place] % (Auto) Eos % (Auto) Baso % (Auto) Absolute Neuts (auto) Absolute Lymphs (auto) Nucleated RBC % Differential Comment Diff Path Review Sodium 134 L Potassium 4.4 Chloride 98 Carbon Dioxide 30.0 Anion Gap 6 BUN 14 Creatinine 0.53 L Estim Creat Clear Calc 152.14 Est GFR (MDRD) Af Amer 214 Est GFR (MDRD) Non-Af 177 BUN/Creatinine Ratio 26.6 H Glucose 125 H Calcium 8.0 L Microbiology 03/22/20 17:10 Urine, Clean Catch Urine Culture - Final Culture exhibits no growth. 03/22/20 16:15 Blood Culture (Wb) - Anticubital Right Blood Culture - Preliminary No growth in 48 hours. 03/22/20 16:10 Blood Culture (Wb) - Left Hand Blood Culture - Preliminary No growth in 48 hours. 03/22/20 23:56 Sputum, Induced/Lukens Gram Stain - Final 03/22/20 23:56 Sputum, Induced/Lukens Respiratory Culture - Final Mixed normal respiratory manny. No Streptococcus pneumoniae, beta-hemolytic Streptococcus or Staphylococcus aureus isolated. Clinical Impression(s) from Imaging Studies Chest X-Ray 03/22/20 16:50 IMPRESSION: Mild pulmonary venous congestion. Cardiac enlargement. Electronically Signed: Isabella Castrejon MD at 17:39 EDT Tel , Service support , Chest X-Ray 03/22/20 19:23 IMPRESSION: 1. Tube positions as described above. 2. Cardiac enlargement. Electronically Signed: Isabella Castrejon MD at 20:24 EDT Tel , Service support , Chest X-Ray 03/23/20 05:55 IMPRESSION: Stable cardiac size. Atelectasis and/or infiltrate in the left base with small left pleural effusion. Compression of parenchymal residual infiltrate in the right base. Lines in good position. Electronically Signed: Nanda Restrepo MD at 5:56 EDT , Service support , Medical Necessity - Tobacco Use Smoking Status: Current every day smoker Tobacco Use: Cigarettes, Cigars, Pipe Assessment/Plan All Active Problems Respiratory failure with hypoxia and hypercapnia (Acute) Acute exacerbation of CHF (congestive heart failure) (Acute) COPD exacerbation (Acute) Hyponatremia (Acute) Elevated BP without diagnosis of hypertension (Acute) Hyperglycemia (Acute) Troponin I above reference range (Acute) RECOMMENDATIONS: 1. Continue antimicrobials, with plans to complete 7-day treatment course. 2. Continue diuretic therapy as tolerated by hemodynamics and renal function. 3. Continue scheduled bronchodilators and IV steroids. 4. Continue appropriate ICU prophylaxis. 5. Continue nicotine replacement therapy. 6. Wean Precedex off today. Continue baseline psychiatric medications and Seroquel, paying close attention to QT interval. 7. Wean supplemental oxygen to maintain saturations at or above 90%. IMPRESSIONS: 1. Acute combined respiratory failure Most likely multifactorial in etiology with concern for underlying community- acquired pneumonia and possible decompensated HFpEF. In addition, the patient has an extensive smoking history, raising the possibility that he has underlying obstructive lung disease, which is in a state of exacerbation. Although the patient improved clinically from a respiratory perspective with invasive mechanical ventilatory support, he did self extubate on March 25. Despite this, he is doing well on nasal cannula supplemental oxygen. Plan to continue empiric antimicrobials for a total of 7 days treatment. Continue gentle diuresis as tolerated by hemodynamics and renal function. Scheduled bronchodilators and steroids will also be continued. The patient's Precedex wi ll be weaned off completely over the course of today. 2. Hyponatremia/hypochloremia Improving. Suspect secondary to hypervolemia. Anticipate improvement with diuresis. Continue to monitor daily. 3. Morbid obesity/tobacco dependency/schizophrenia/questionable obstructive lung disease Complicates care, management, recovery and prognosis. Continue baseline psychiatric medications. Continue to wean Precedex over the course of the day. Continue Seroquel as previously ordered. Monitor QT intervals closely. This note was generated with [employer] dictation software. It may contain incorrect words, spelling, and punctuation that were not noted in checking the note before signing. Inpatient E&M: [id number] [facility] Hosp L3
[2020-03-26] MEDS: Ipratropium/Albuterol Sulfate 3 ML AMPUL.NEB INHALATION (06:52)
--- NOTE | 2020-03-26 07:30 | PN_ITS ---
Patient Problems: Active and Suspected Problems Respiratory failure with hypoxia and hypercapnia (Acute) Acute exacerbation of CHF (congestive heart failure) (Acute) COPD exacerbation (Acute) Hyponatremia (Acute) Elevated BP without diagnosis of hypertension (Acute) Hyperglycemia (Acute) Subjective: Patient seen and examined. He self extubated yesterday but had subsequently done well on oxygen by nasal cannula. He is currently on 4 L of oxygen by nasal cannula. Patient was a bit aggressive and wanted out of restraints after self extubating yesterday but calmed down when Precedex was increased and was started on Seroquel last night as well. No other active events overnight. He has remained hemodynamically stable. Respiratory rate is 19 and pulse rate is 59 with blood pressure of 163/91. Chemistry essentially unremarkable and CBC shows hemoglobin of 19.2 with WBC of 18.6. Patient had no complaints today. He was laid in bed mumbling to himself. Unable to do review of systems. Vitals/I&O's: Vital Signs Temp Pulse Resp BP Pulse Ox 98.7 F 59 L 19 H 163/91 H 90 03/26/20 00:00 03/26/20 06:00 03/26/20 06:00 03/26/20 06:00 03/26/20 06:00 Oxygen Flow Rate (L/min) 4 Oxygen Delivery Method Nasal Cannula Weight: 279 lb 5.211 oz Body Mass Index (BMI) 48.8 Finger Stick Blood Glucose 115 Intake and Output for Last 24 Hours 03/24/20 03/25/20 03/26/20 23:59 23:59 23:59 Intake Total 3455.53 / 3491.20 3085.20 / 3135.50 559.83 / 559.83 Output Total 5300 / 5300 3375 / 3375 Balance -1844.47 / -1808.80 -289.80 / -239.50 559.83 / 559.83 General: Alert, Cooperative HEENT: Atraumatic, PERRLA, EOMI, Normocephalic Oral: Dry Mucosa Neck: Supple, No JVD, Negative Carotid Bruits Lungs: - - mildly decreased breath sounds bibasally, no wheezes or crackles. On 4L of oxygen by nasal canula Cardiovascular: Regular rate, Regular Rhythm, Normal S1, Normal S2, No murmurs Abdomen: Bowel Sounds Present, Soft, Non Tender Extremities: No clubbing, No cyanosis, No edema, Capillary Refill Less than 3 Seconds Skin: No rashes, No breakdown Musculoskeletal: No Tenderness to Palpation of Joints or Extremities Lymphatic: No Cervical, Supraclavicular, or Inguinal Adenopathy Neurological: Cranial nerves II-XII grossly intact, Neuro grossly intact, Motor Exam 5/5 strength throughout Psych/Mental Status: Normal Affect, Appropriate Microbiology Past 72 Hours 03/22/20 17:10 Urine, Clean Catch Urine Culture - Final Culture exhibits no growth. 03/22/20 16:15 Blood Culture (Wb) - Anticubital Right Blood Culture - Preliminary No growth in 48 hours. 03/22/20 16:10 Blood Culture (Wb) - Left Hand Blood Culture - Preliminary No growth in 48 hours. 03/22/20 23:56 Sputum, Induced/Lukens Gram Stain - Final 03/22/20 23:56 Sputum, Induced/Lukens Respiratory Culture - Final Mixed normal respiratory manny. No Streptococcus pneumoniae, beta-hemolytic Streptococcus or Staphylococcus aureus isolated. 03/23/20 07:10 Mucosa - Nasopharyngeal Respiratory Panel (PCR) - Final Laboratory Results 03/26/20 04:00: WBC 18.6 H, RBC 6.11, Hgb 19.2 H*, Hct 57.3 H, MCV 93.8, MCH 31.4, MCHC 33.5, RDW Std Deviation 51.1 H, RDW Coeff of Dixie 15.4 H, Plt Count 317, MPV 9.2, Immature Gran % (Auto) 0.500, Neut % (Auto) 81.4 H, Lymph % (Auto) 5.4 L, [place] % (Auto) 12.6 H, Eos % (Auto) 0.0, Baso % (Auto) 0.1, Absolute Neuts (auto) 15.1 H, Absolute Lymphs (auto) 1.00, Nucleated RBC % 0, Differential Comment SCANNED, Diff Path Review November foll 03/26/20 04:00: Sodium 134 L, Potassium 4.4, Chloride 98, Carbon Dioxide 30.0, Anion Gap 6, BUN 14, Creatinine 0.53 L, Estim Creat Clear Calc 152.14, Est GFR (MDRD) Af Amer 214, Est GFR (MDRD) Non-Af 177, BUN/Creatinine Ratio 26.6 H, Glucose 125 H, Calcium 8.0 L Diagnostic Data Chest X-Ray 03/23/20 05:55 IMPRESSION: Stable cardiac size. Atelectasis and/or infiltrate in the left base with small left pleural effusion. Compression of parenchymal residual infiltrate in the right base. Lines in good position. Electronically Signed: Nanda Restrepo MD at 5:56 EDT , Service support , Current Medications Acetaminophen (Tylenol) 650 mg PO Q6H PRN PRN PRN Reason: Pain Score 1-10/Temp > 100.7 F Al Hydroxide/Mg Hydroxide (Mylanta Ii) 30 ml PO Q6H PRN PRN PRN Reason: Gastric Burning Albuterol Sulfate (Ventolin Aerosols) 2.5 mg INHALATION Q2H PRN PRN PRN Reason: Dyspnea, wheezing Last Admin: 03/22/20 20:33 Dose: 2.5 mg Documented by: Albuterol/Ipratropium (Duoneb) 3 ml INHALATION Q4HWA.RT [facility] Last Admin: 03/26/20 06:52 Dose: 3 ml Documented by: Aspirin (Aspirin, Baby) 81 mg PO DAILY@0800 [facility] Atorvastatin Calcium (Lipitor) 40 mg PO QHS [facility] Last Admin: 03/25/20 20:53 Dose: 40 mg Documented by: Benztropine Mesylate (Cogentin) 1 mg PO BID [facility] Last Admin: 03/25/20 20:53 Dose: 1 mg Documented by: Divalproex Sodium (Depakote) 1,000 mg PO BID [facility] Last Admin: 03/25/20 20:53 Dose: 1,000 mg Documented by: Enoxaparin Sodium (Lovenox) 40 mg SC DAILY [facility] Last Admin: 03/25/20 09:42 Dose: 40 mg Documented by: Famotidine (Pepcid) 20 mg PO BID [facility] Last Admin: 03/25/20 20:52 Dose: 20 mg Documented by: Furosemide (Lasix) 40 mg IV BID@1000,1800 [facility] Last Admin: 03/25/20 17:16 Dose: 40 mg Documented by: Guaifenesin (Robitussin) 10 ml PO Q4H PRN PRN PRN Reason: COUGH Haloperidol (Haldol) 10 mg PO BID [facility] Last Admin: 03/25/20 20:52 Dose: 10 mg Documented by: Hydralazine HCl (Apresoline Iv) 10 mg IV Q4H PRN PRN PRN Reason: SBP > 160 Last Admin: 03/25/20 22:53 Dose: 10 mg Documented by: Sodium Chloride () 250 mls @ 15 mls/hr IV .[id number] PRN PRN Reason: Saline Flush Last Infusion: 03/26/20 05:40 Dose: 0 mls/hr Documented by: Sodium Chloride () 250 mls @ 15 mls/hr IV .[id number] PRN PRN Reason: Additional IVPB Infusion Piperacillin Sod/Tazobactam (Sod 3.375 gm/ Sodium Chloride) 50 mls @ 12.5 mls/ hr IV Q8 [facility] Last Admin: 03/26/20 05:40 Dose: 12.5 mls/hr Documented by: Dexmedetomidine HCl 1,000 mcg/ (Sodium Chloride) 250 mls @ 26.8 mls/hr CONT INF .Q9H20M [facility]; Protocol Last Admin: 03/26/20 06:45 Dose: 1.5 mcg/kg/hr, 50.3 mls/hr Documented by: Lisinopril (Zestril) 20 mg PO DAILY [facility] Magnesium Hydroxide (Milk Of Magnesia) 30 ml PO DAILY PRN PRN PRN Reason: Constipation Nicotine (Nicoderm Cq (Pbkc)) 21 mg TRANSDERM. DAILY [facility] Last Admin: 03/25/20 09:42 Dose: 21 mg Documented by: Nitroglycerin (Nitrostat) 0.4 mg SUBLINGUAL Q5M PRN PRN Reason: CARDIAC/CHEST PAIN Ondansetron HCl (Zofran) 4 mg IV Q8H PRN PRN PRN Reason: NAUSEA/VOMITING Prochlorperazine Edisylate (Compazine Iv) 5 mg IV Q4H PRN PRN PRN Reason: Breakthrough Nausea/Vomiting Psyllium Hydrophilic Mucilloid (Metamucil) 1 packet NG DAILY PRN PRN PRN Reason: Constipation Quetiapine Fumarate (Seroquel) 50 mg PO BID [facility] Last Admin: 03/26/20 00:39 Dose: 50 mg Documented by: Senna/Docusate Sodium (Senokot-S, [place]ira-Colace) 2 tablet PO BID [facility] Last Admin: 03/25/20 20:52 Dose: 2 tablet Documented by: Senna/Docusate Sodium (Senokot-S, [place]-Colace) 2 tablet PO BID PRN PRN Reason: Constipation Sodium Chloride () 10 - 40 ml IV UD PRN PRN Reason: SALINE FLUSH Last Admin: 03/25/20 20:54 Dose: 10 ml Documented by: Throat Lozenges (Cepacol Sore Throat Lozenge) 1 lozenge MUCOUS MEM Q2H PRN PRN PRN Reason: SORE THROAT STROKE Vital Signs/Narrative: Vital Signs Pulse Resp BP Pulse Ox 03/26/20 06:00 59 L 19 H 163/91 H 90 03/26/20 05:00 61 15 148/87 H 96 03/26/20 04:00 59 L 16 154/104 H 93 03/26/20 03:47 67 Medical Necessity - Tobacco Use Smoking Status: Current every day smoker Tobacco Use: Cigarettes, Cigars, Pipe Assessment/Plan All Active Problems Respiratory failure with hypoxia and hypercapnia (Acute) Acute exacerbation of CHF (congestive heart failure) (Acute) COPD exacerbation (Acute) Hyponatremia (Acute) Elevated BP without diagnosis of hypertension (Acute) Hyperglycemia (Acute) Troponin I above reference range (Acute) # Acute hypoxic respiratory failure * thought to be multifactorial, due to acute decompensated HF with preserved EF, and acute on chronic COPD exacerbation,a s well as probable pneumonia * Patient self extubated yesterday and has remained stable on 4 L of oxygen by nasal cannula. * On IV Lasix 40 mg twice daily. * Cumulative negative balance by 5 L. * On IV Zosyn. White cell count is trended up to 18 today but less likely due to IV Solu-Medrol that he is on. * Continue breathing treatments with bronchodilators. * Critical care on board. * 2D echo showed EF of 60% with no evidence of diastolic dysfunction and no regional wall motion abnormalities seen. Unable to estimate right ventricular systolic pressure. * blood cultures negative * Remains on Precedex. * # Acute hyponatremia: * resolved. * # Acute heart failure with preserved EF: as under respiratory failure #Polycythemia: * Hemoglobin is 19.2 today. * It is 17.4 and then 17.8 during admission. 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 * To follow-up with primary care doctor upon discharge. * #Leukocytosis: WBC is up to 18.6. This likely reactive due to IV Solu-Medrol that he is on. He had been on IV Zosyn for pneumonia. Will monitor. # Acute on chronic COPD exacerbation: as under respiratory failure #Hypertension: on lisinopril and metoprolol #Schizophrenia: On Haldol, Depakote and benztropine as well as Xanax. Seroquel added yesterday. # Morbid obesity: BMI is 48. complicates acute care and management. DVT prophylaxis; lovenox Code status: full code Inpatient E&M: 90228 Subs Hosp L3
--- NOTE | 2020-03-26 07:44 | CPS ---
patient took less than 3 minutes of treatment before remvoving it from his face and refused to put it back on.
[2020-03-26] MEDS: Furosemide 40 MG/4 ML Vial IV ×2 (09:54→16:48)
[2020-03-26] MEDS: Divalproex Sodium 250 MG Tablet 1000 MG PO ×2 (09:54→21:52)
[2020-03-26] MEDS: Lisinopril 20 MG Tablet PO (09:55)
[2020-03-26] MEDS: Famotidine 20 MG Tablet PO ×2 (09:55→21:53)
[2020-03-26] MEDS: Haloperidol 5 MG Tablet 10 MG PO ×2 (09:55→21:51)
[2020-03-26] MEDS: Benztropine 2 MG Tablet 1 MG PO ×2 (09:56→21:51)
[2020-03-26] MEDS: Aspirin 81 MG TAB.CHEW PO (09:56)
[2020-03-26] MEDS: Senna/Docusate Sodium 1 Tablet 2 TABLET PO ×2 (09:57→21:53)
[2020-03-26] MEDS: Enoxaparin 40 MG/0.4 ML Syringe SC (09:57)
[2020-03-26] MEDS: Acetaminophen 325 MG Tablet 650 MG PO ×2 (10:04→16:48)
[2020-03-26] MEDS: 0.9% Saline Lock 10 ML Syringe IV ×2 (10:05→16:48)
[2020-03-26] MEDS: Dexmedetomidine 1,000 mcg in 0.9% NS 240 mL 30.2 MCG CONT INF (12:51)
[2020-03-26] MEDS: Atorvastatin Calcium 40 MG Tablet PO (21:53)
[2020-03-27] VITALS: PULSE 70; RESP 15; O2SAT 90
--- NOTE | 2020-03-27 00:28 | NURSING ---
PT REFUSING CARE, PULLED OUT IV AND WANTS TO GO HOME. DR GOMEZ AWARE. PT CURRENTLY TALKING TO HIS ON THE PHONE
--- NOTE | 2020-03-27 00:58 | NURSING ---
Patient demanding to leave AMA and have come and pick him up at this time. Called on phone and she tried to talk with the patient at this time. The patient was still demanding she come and pick him up, we told her the physician was not okay with the patient leaving if he did leave it would be Against medical Advice at this time. The patient is a known paranoid schizophrenic, the was concerned about coming to get him in his current state. Dr Camarena did come to the bedside and explain to the patient that he has to stay at the hospital because it is not safe to go home at this time. This was then explained to the , as well she was then willing to come and get him if necessary. stated that home is his safe place and it is hard for him to be away from home for long periods of time, change is difficult for him due to his schizophrenia. Reassured her that he was in good hands at this time and we are doing everything we can for him and to keep him safe. Patient is now resting in bed and no longer trying to get out of the bed and leave the room.
--- NOTE | 2020-03-27 01:27 | NURSING ---
PT CURRENTLY RESTING IN BED TALKING TO HIMSELF. SAFETY MAINTAINED. WILL CONTINUE TO MONITOR PT'S BEHAVIOR & SAFETY
[2020-03-27] MEDS: ALPRAZolam 0.5 MG Tablet PO (02:24)
[2020-03-27 04:46] VITALS: RESP 16
--- NOTE | 2020-03-27 04:48 | NURSING ---
PT RESTING IN BED, AWAKE TALKING TO HIMSELF. NO S/S OF ANY RESP DISTRESS NOTED. SAFETY MAINTAINED.
[2020-03-27 06:00] VITALS: PULSE 70; RESP 15
[2020-03-27 06:56] VITALS: RESP 15; O2SAT 90
--- NOTE | 2020-03-27 07:04 | PCM.PN.INT ---
Subjective: Patient did okay overnight from a hemodynamic standpoint. Patient had attempted to leave AMA, but his ride refused to pick him up. Patient pulled out his IVs and is refusing any repeat placement. Patient is denying any pain. Patient appears to be alert, but oriented x0. No significant agitation with staff has been noted. Patient does mumble frequently to himself. General: Alert, Confused, Disoriented, - - Appears older than stated age. Morbidly obese. HEENT: Atraumatic, PERRLA, EOMI, Normocephalic, - - Slight scleral injection without icterus Oral: Moist Mucosa, No Gingival or Mucosal Lesions/ Ulcerations Neck: Supple, No JVD, No Nodes, Trachea Midline Lungs: No rhonchi, No wheeze, No rales, Diminished, - - Fair effort Cardiovascular: Regular rate, Regular Rhythm, Normal S1, Normal S2, No murmurs, No rub noted, No Gallop Abdomen: Bowel Sounds Present, Soft, Non Tender, Non-Distended, Obese Extremities: No clubbing, No cyanosis, No edema Skin: No breakdown Musculoskeletal: No Tenderness to Palpation of Joints or Extremities Lymphatic: No Cervical, Supraclavicular, or Inguinal Adenopathy Neurological: Cranial nerves II-XII grossly intact, Neuro grossly intact, Motor Exam 5/5 strength throughout Psych/Mental Status: Anxious, Impulsive, Restless Vital Signs Temp Pulse Resp BP Pulse Ox 36.8 C 70 15 132/54 H 90 03/26/20 21:45 03/27/20 06:00 03/27/20 06:56 03/26/20 21:45 03/27/20 06:56 Oxygen Flow Rate (L/min) 4 Oxygen Delivery Method Room Air Weight: 121.4 kg Body Mass Index (BMI) 48.8 Finger Stick Blood Glucose 115 Intake and Output for Last 24 Hours 03/25/20 03/26/20 03/27/20 23:59 23:59 23:59 Intake Total 3085.20 / 3135.50 1899.82 / 1899.82 100 / 100 Output Total 3375 / 3375 1900 / 1900 Balance -289.80 / -239.50 -0.18 / -0.18 100 / 100 Labs (Last 48 Hours) 03/26/20 03/26/20 04:00 04:00 WBC 18.6 H RBC 6.11 Hgb 19.2 H* Hct 57.3 H MCV 93.8 MCH 31.4 MCHC 33.5 RDW Std Deviation 51.1 H RDW Coeff of Dixie 15.4 H Plt Count 317 MPV 9.2 Immature Gran % (Auto) 0.500 Neut % (Auto) 81.4 H Lymph % (Auto) 5.4 L [place] % (Auto) 12.6 H Eos % (Auto) 0.0 Baso % (Auto) 0.1 Absolute Neuts (auto) 15.1 H Absolute Lymphs (auto) 1.00 Nucleated RBC % 0 Differential Comment SCANNED Diff Path Review May foll Sodium 134 L Potassium 4.4 Chloride 98 Carbon Dioxide 30.0 Anion Gap 6 BUN 14 Creatinine 0.53 L Estim Creat Clear Calc 152.14 Est GFR (MDRD) Af Amer 214 Est GFR (MDRD) Non-Af 177 BUN/Creatinine Ratio 26.6 H Glucose 125 H Calcium 8.0 L Microbiology 03/22/20 17:10 Urine, Clean Catch Urine Culture - Final Culture exhibits no growth. 03/22/20 16:15 Blood Culture (Wb) - Anticubital Right Blood Culture - Preliminary No growth in 48 hours. 03/22/20 16:10 Blood Culture (Wb) - Left Hand Blood Culture - Preliminary No growth in 48 hours. Medical Necessity - Tobacco Use Smoking Status: Current every day smoker Tobacco Use: Cigarettes, Cigars, Pipe Assessment/Plan All Active Problems Respiratory failure with hypoxia and hypercapnia (Acute) Acute exacerbation of CHF (congestive heart failure) (Acute) COPD exacerbation (Acute) Hyponatremia (Acute) Elevated BP without diagnosis of hypertension (Acute) Hyperglycemia (Acute) Troponin I above reference range (Acute) RECOMMENDATIONS: 1. Continue antimicrobials. Okay to transition to p.o. medications from my perspective (not Levaquin) 2. Continue diuretic therapy as tolerated by hemodynamics and renal function. 3. Continue scheduled bronchodilators and discontinue steroids 4. Continue appropriate ICU prophylaxis. 5. Continue nicotine replacement therapy. 6. Continue baseline psychiatric medications and Seroquel, paying close attention to QT interval. 7. Wean supplemental oxygen to maintain saturations at or above 90%. 8. Will sign off from a critical care perspective IMPRESSIONS: 1. Acute combined respiratory failure Most likely multifactorial in etiology with concern for underlying community-acquired pneumonia and possible decompensated HFpEF. In addition, the patient has an extensive smoking history, raising the possibility that he has underlying obstructive lung disease, which is in a state of exacerbation. Although the patient improved clinically from a respiratory perspective with invasive mechanical ventilatory support, he did self extubate on March 25. Despite this, he is doing well on nasal cannula supplemental oxygen. Plan to continue empiric antimicrobials for a total of 7 days treatment. Continue gentle diuresis as tolerated if patient willing to take. Scheduled bronchodilators, but discontinue steroids as this can worsen psychotic control and patient is tolerating room air with no wheezing on exam. 2. Hyponatremia/hypochloremia Suspect improvement. Suspect secondary to hypervolemia. Anticipate improvement with diuresis. Refusing labs at this time 3. Morbid obesity/tobacco dependency/schizophrenia/questionable obstructive lung disease Complicates care, management, recovery and prognosis. Continue baseline psychiatric medications. Continue to wean Precedex over the course of the day. Continue Seroquel as previously ordered. Monitor QT intervals closely. No clinical issues appear to necessitate forcible laboratory evaluation Inpatient E&M: [id number] [facility] L1
[2020-03-27] MEDS: Divalproex Sodium 250 MG Tablet 1000 MG PO (08:56)
[2020-03-27] MEDS: Haloperidol 5 MG Tablet 10 MG PO (08:56)
[2020-03-27] MEDS: Senna/Docusate Sodium 1 Tablet 2 TABLET PO (08:57)
[2020-03-27] MEDS: Aspirin 81 MG TAB.CHEW PO (08:57)
[2020-03-27] MEDS: QUEtiapine 25 MG Tablet 50 MG PO (08:57)
[2020-03-27] MEDS: Lisinopril 20 MG Tablet PO (08:58)
[2020-03-27] MEDS: Benztropine 2 MG Tablet 1 MG PO (08:58)
[2020-03-27] MEDS: Famotidine 20 MG Tablet PO (09:00)
[2020-03-27 09:40] LABS: Pathologist Review Reviewed
--- NOTE | 2020-03-27 11:00 | DCINST_ITS ---
- Discharge Diagnoses Current Active Problems: Current Active and Chronic Problems Respiratory failure with hypoxia and hypercapnia (Acute) Acute exacerbation of CHF (congestive heart failure) (Acute) COPD exacerbation (Acute) Hyponatremia (Acute) Elevated BP without diagnosis of hypertension (Acute) Hyperglycemia (Acute) Morbid obesity (Chronic) You will use the following diet at home:: Calorie/Carbohydrate Controlled (specify 1200, 1400, etc) - 1800, Fluid restricted (specify 2000 mls, 1500 mls) - 1800 Your food should be the consistency of: Regular Your liquids should be the consistency of: Regular/Thin Discharge Activity: Return to Normal Activity Call your doctor if you observe: Fever of 101 or Higher, Shortness of breath, Dizziness, Fainting spells, Swelling in the ankles, Chest pain, Increased palpitations (irregular heartbeat) Additional Instructions: Have a BMP and CBC performed as an oputpatient PCP in 3-5 days. Allergies/Adverse Reactions: Allergies No Known Allergies Allergy (Verified 04/12/15 13:59) Medications to take at Discharge ALPRAZolam [Xanax] 0.5 mg PO BID PRN 03/09/15 Benztropine Mesylate 1 mg PO BID 03/22/20 Divalproex Sodium [Divalproex Sodium ER] 1,000 mg PO BID 03/22/20 Guaifenesin [Mucinex] 600 mg PO BID 03/22/20 Haloperidol 10 mg PO BID 03/22/20 Albuterol IH (ProAir) [Proair Hfa] 1 - 2 puff INHALATION Q4H PRN PRN #1 inhaler 03/27/20 Amoxicillin/Potassium Clav [Augmentin 875-125 Tablet] 1 ea PO BID #3 tab 03/27/20 Aspirin [Aspirin, Baby] 81 mg PO DAILY@0800 #30 tab.chew 03/27/20 Atorvastatin Calcium [Lipitor] 40 mg PO QHS #30 tab 03/27/20 Furosemide [Lasix] 40 mg PO DAILY #30 tab 03/27/20 Lisinopril [Zestril] 20 mg PO DAILY #30 tab 03/27/20 The following prescriptions were given: Aspirin [Aspirin, Baby] 81 mg PO DAILY@0800 #30 tab.chew Transmission Status: Pending to [facility]/pharmacy #[id number] Amoxicillin/Potassium Clav [Augmentin 875-125 Tablet] 1 ea PO BID #3 tab Transmission Status: Pending to [facility]/pharmacy #[id number] Furosemide [Lasix] 40 mg PO DAILY #30 tab Transmission Status: Pending to [facility]pharmacy #[id number] Atorvastatin Calcium [Lipitor] 40 mg PO QHS #30 tab Transmission Status: Pending to [facility]/pharmacy #[id number] Albuterol IH (ProAir) [Proair Hfa] 1 - 2 puff INHALATION Q4H PRN PRN #1 inhaler PRN Reason: Wheezing Transmission Status: Pending to [facility]pharmacy #[id number] Lisinopril [Zestril] 20 mg PO DAILY #30 tab Transmission Status: Pending to [facility]pharmacy #[id number] Primary Care Physician: Care Physician,No Primary [Primary Care Provider] - Please follow up with your Primary Care Physician in: 3-5 days Test Results: Test results from this visit will be discussed in further detail at your follow- up appointment, if applicable.
--- NOTE | 2020-03-27 11:33 | NURSING ---
Spoke with patients on the phone. Discussed discharge plans and reviewed discharge instructions with her, verbalized understanding. written copy to be sent home with patient. Patients verbalized that she was willing to take patient home and denied concerns about herself being able to care for him.
--- NOTE | 2020-03-27 15:16 | DS.PCM_ITS ---
Discharge Date and Diagnosis Date of Admission: 03/22/20 Date of Discharge: 03/27/20 - Secondary Discharge Diagnosis Chronic Problems: Chronic Problems Morbid obesity (Chronic) Tobacco use (Chronic) Schizophrenia (Chronic) Hospital Course and Treatment Imaging Results: Clinical Impression(s) from Imaging Studies Chest X-Ray 03/22/20 16:50 IMPRESSION: Mild pulmonary venous congestion. Cardiac enlargement. Electronically Signed: Isabella Castrejon MD at 17:39 EDT Tel , Service support , Chest X-Ray 03/22/20 19:23 IMPRESSION: 1. Tube positions as described above. 2. Cardiac enlargement. Electronically Signed: Isabella Castrejon MD at 20:24 EDT Tel , Service support , Chest X-Ray 03/23/20 05:55 IMPRESSION: Stable cardiac size. Atelectasis and/or infiltrate in the left base with small left pleural effusion. Compression of parenchymal residual infiltrate in the right base. Lines in good position. Electronically Signed: Nanda Restrepo MD at 5:56 EDT , Service support , Echo: Interpretation Summary The estimated ejection fraction is 60 %. No evidence for diastolic dysfunction. The study was technically difficult. Contrast injection was performed. Consults: ICU Operations: None Procedures: 2-D Echocardiogram, Intubation Summary of Care Provided: Per HPI: The patient is a 49 y/o M w/ PMHx: Schizophrenia (visual hallucinations, not severe, no marked paranoia), Morbid Obesity, Heavy Tobacco use with suspected Chronic COPD who presents to the [facility] ED on 03/22/20 with history of ongoing dyspnea for several weeks to months per spouse report with fatigue and specifically also exertional dyspnea but no specific chest discomfort or pain however more severe the last 48 hours even prompting patient to primarily attempt asleep in front of a fan secondary to the severity of dyspnea complaint with ongoing unchanged cough with no productive sputum and no fever, chills, nausea, emesis, diarrhea, abdominal pain, body aches, headaches, sore throat associated. Patient does have orthopnea per her report. Patient has not significantly had weight gain but does not weigh himself. Patient with no specific increased lower extremity edema. Patient history given per spouse given patient lethargy and currently BiPAP in place. Work-up in the ED included T 98.4, HR 106, BP 167/85, RR 18, 86% on 6L NC, CBC w/ WBC 11.5, Hgb 17.5, Plts 327 with L shift, pending coags, ABG initial pH 7.22, Bicarb 38.5, O2 saturation 83, pCO2 93.5, BIPAP 12, CMP with Na 124, Chl 84, CO2 36, BUN/Cr 6/0.58, glucose 132, LA 1.6, unremarkable hepatic profile, troponin 0.039, UA unremarkable, UDS pending, phenytoin <0.4, EtOH < 3.0, COVID negative, Bld Cx x 2, UCx pending per ED, CXR with mild pulmonary venous congestion, cardiac enlargement. In the ED patient administered Rocephin, azithromycin, DuoNeb and albuterol therapy, Ativan 2 mg IV x1 secondary to agitation, Solu-Medrol 125 mg IV x1. Discussed patient case with the ED physician and will await repeat ABG and if worsen would plan intubation prior to transition to the ICU. Also discussed with ED physician concern for heart failure therefore Lasix 40 mg IV x1 administered. Hospital Course: 1. Acute hypoxic respiratory failure secondary to decompensated heart failure with preserved EF as well as an acute on chronic COPD exacerbation/possible acquired [id number] male with a history of schizophrenia presents to the hospital with acute respiratory failure was intubated in the ER and transferred to the ICU. He did fairly well intubated in the ICU. He was found to be fluid overloaded and was started on IV diuresis, and echo demonstrated a normal EF with no diastolic dysfunction. He did have an elevated BNP to 533 with a normal renal function. He was also started on antibiotics which he will continue for another for 3 days after discharge. He did self extubate and since then has been noncompliant with therapy. He also did have a climbing white count and this was secondary to Solu-Medrol. The Cymetra was discontinued and he was not discharged on prednisone because of the risk of psychosis given his history of schizophrenia. He was discharged today simply because he refused any medical interventions and refused to have vitals taken and had threatened to leave AMA last evening however his ride can come and pick him up. I discussed with him the risk benefits of discharge and he expressed understanding. He understands he does take medications that he has been prescribed and follow-up with his outpatient physicians. He will need to continue Lipitor, aspirin, albuterol inhaler, Lasix, and lisinopril on discharge. 2. Hypertension, hyperlipidemia, schizophrenia, morbid obesity her chronic medical conditions which complicate care. His home medications were continued where appropriate. - Physical Exam Vitals/I&O's: Vital Signs Temp Pulse Resp BP Pulse Ox 98.2 F 70 15 132/54 H 90 03/26/20 21:45 03/27/20 06:00 03/27/20 06:56 03/26/20 21:45 03/27/20 06:56 Oxygen Flow Rate (L/min) 4 Oxygen Delivery Method Room Air Weight: 267 lb 10.259 oz Body Mass Index (BMI) 48.8 Finger Stick Blood Glucose 115 Intake and Output for Last 24 Hours 03/25/20 03/26/20 03/27/20 23:59 23:59 23:59 Intake Total 3085.20 / 3135.50 1899.82 / 1899.82 100 / 100 Output Total 3375 / 3375 1900 / 1900 Balance -289.80 / -239.50 -0.18 / -0.18 100 / 100 General: Alert, Cooperative, No apparent distress HEENT: Atraumatic, PERRLA, EOMI, Normocephalic Oral: Moist Mucosa Neck: Supple, No JVD Lungs: Clear to auscultation, Normal air movement, No rhonchi, No wheeze, No rales, Diminished Cardiovascular: Regular rate, Regular Rhythm, Normal S1, Normal S2, No murmurs Abdomen: Soft, Non Tender, Non-Distended, No Hepato-splenomegaly Extremities: No edema, Capillary Refill Less than 3 Seconds Skin: No rashes, No breakdown Neurological: Neuro grossly intact, Sensory exam intact to light touch and pain Psych/Mental Status: Anxious, Restless Microbiology Past 72 Hours 03/22/20 17:10 Urine, Clean Catch Urine Culture - Final Culture exhibits no growth. 03/22/20 16:15 Blood Culture (Wb) - Anticubital Right Blood Culture - Preliminary No growth in 48 hours. 03/22/20 16:10 Blood Culture (Wb) - Left Hand Blood Culture - Preliminary No growth in 48 hours. Laboratory Results 03/26/20 04:00: Diff Path Review Reviewed Discharge Activity: Return to Normal Activity Call your doctor if you observe: Fever of 101 or Higher, Shortness of breath, Dizziness, Fainting spells, Swelling in the ankles, Chest pain, Increased palpitations (irregular heartbeat) Home Medications: Medications to take at Discharge ALPRAZolam [Xanax] 0.5 mg PO BID PRN 03/09/15 Benztropine Mesylate 1 mg PO BID 03/22/20 Divalproex Sodium [Divalproex Sodium ER] 1,000 mg PO BID 03/22/20 Guaifenesin [Mucinex] 600 mg PO BID 03/22/20 Haloperidol 10 mg PO BID 03/22/20 Albuterol IH (ProAir) [Proair Hfa] 1 - 2 puff INHALATION Q4H PRN PRN #1 inhaler 03/27/20 Amoxicillin/Potassium Clav [Augmentin 875-125 Tablet] 1 ea PO BID #3 tab 03/27/20 Aspirin [Aspirin, Baby] 81 mg PO DAILY@0800 #30 tab.chew 03/27/20 Atorvastatin Calcium [Lipitor] 40 mg PO QHS #30 tab 03/27/20 Furosemide [Lasix] 40 mg PO DAILY #30 tab 03/27/20 Lisinopril [Zestril] 20 mg PO DAILY #30 tab 03/27/20 Following Prescriptions Were Given to Patient: Aspirin [Aspirin, Baby] 81 mg PO DAILY@0800 #30 tab.chew Transmission Status: Received by [id number] Amoxicillin/Potassium Clav [Augmentin 875-125 Tablet] 1 ea PO BID #3 tab Transmission Status: Received by [id number] Furosemide [Lasix] 40 mg PO DAILY #30 tab Transmission Status: Received by [id number] Atorvastatin Calcium [Lipitor] 40 mg PO QHS #30 tab Transmission Status: Received by [id number] Albuterol IH (ProAir) [Proair Hfa] 1 - 2 puff INHALATION Q4H PRN PRN #1 inhaler PRN Reason: Wheezing Transmission Status: Received by [id number] Lisinopril [Zestril] 20 mg PO DAILY #30 tab Transmission Status: Received by [id number] Primary Care Physician: Care Physician,No Primary [Primary Care Provider] - Please follow up with your Primary Care Physician in: 3-5 days Disposition: Home Minutes spent on discharge:: 35 Patient Condition:: Stable Medical Necessity - Tobacco Use Smoking Status: Current every day smoker Tobacco Use: Cigarettes, Cigars, Pipe Meaningful Use Info Meaningful Use Diagnoses (Choose all that apply): None applicable Inpatient E&M: [id number] [facility]
== END 2020-03-27 12:55 | disposition home or self-care (01) | DRG 208 ==
LOC: ED 16:15 → ICU 18:19
PROVIDERS: Internal Medicine Critical Care Medicine; Student in an Organized Health Care Education/Training Program; Admitting Provider Family Medicine; Emergency Provider Emergency Medicine; Visit Provider Family Medicine
DX: J18.9 Pneumonia, unspecified organism (principal); J96.01 Acute respiratory failure with hypoxia; I50.33 Acute on chronic diastolic (congestive) heart failure; J96.02 Acute respiratory failure with hypercapnia; J44.0 Chronic obstructive pulmonary disease with (acute) lower respiratory infection; E87.1 Hypo-osmolality and hyponatremia; J44.1 Chronic obstructive pulmonary disease with (acute) exacerbation; Z68.42 Body mass index [BMI] 45.0-49.9, adult; I11.0 Hypertensive heart disease with heart failure; R73.9 Hyperglycemia, unspecified; D75.1 Secondary polycythemia; E87.8 Other disorders of electrolyte and fluid balance, not elsewhere classified; E66.01 Morbid (severe) obesity due to excess calories; F20.9 Schizophrenia, unspecified; F17.210 Nicotine dependence, cigarettes, uncomplicated; Z91.19 Patient's noncompliance with other medical treatment and regimen; E78.5 Hyperlipidemia, unspecified; Z78.1 Physical restraint status; Z79.899 Other long term (current) drug therapy; Z87.01 Personal history of pneumonia (recurrent)
CPT/HCPCS: 31500; 31720; 36600; 51702; 71045; 80048; 80053; 80061; 80185; 80307; 80320; 81001; 82550; 82570; 82803; 83036; 83605; 83735; 83880; 84145; 84300; 84439; 84443; 84478; 84484; 85025; 85610; 85730; 87040; 87070; 87086; 87205; 87449; 87633; 87635; 87641; 93005; 93306; 94002; 94003; 94640; 94799; 97163; 97166; 97802; 99251; 99285; J7030; J7050; Q9957; A4216; C8929; G0463; G0480; J0330; J1940; J3010; U0003

== ENCOUNTER → 2020-04-19 | Outpatient (CLI) | payer MEDICARE, SELFPAY ==
[2020-03-23 11:29] VITALS: BMI 48.8
[2020-04-19 10:58] LABS: Platelet Count 316 K/mm3 (150-450)
[2020-04-19 11:09] LABS: AST(SGOT) 16 U/L (15-37); Alanine Aminotransfer ALT/SGPT 18 U/L (16-61)
[2020-04-19 11:31] LABS: Valproic Acid (Depakene) Level 97 ug/mL (50-100)
== END | disposition home or self-care (01) ==
LOC: LABSPEC 08:54
PROVIDERS: Visit Provider Psychiatry & Neurology Psychiatry
DX: Z79.899 Other long term (current) drug therapy (principal)
CPT/HCPCS: 36415; 80164; 82140; 84450; 84460; 85049

== ENCOUNTER → 2020-11-09 08:30 | Outpatient (CLI) | payer MEDICARE, SELFPAY ==
[2020-03-23 11:29] VITALS: BMI 48.8
[2020-11-09 10:35] LABS: Platelet Count 304 K/mm3 (150-450)
[2020-11-09 10:49] LABS: AST(SGOT) 17 U/L (15-37); Alanine Aminotransfer ALT/SGPT 26 U/L (16-61); Prolactin 21.4 ng/mL
[2020-11-09 11:35] LABS: Valproic Acid (Depakene) Level 54 ug/mL (50-100)
== END ==
PROVIDERS: Visit Provider Psychiatry & Neurology Psychiatry
DX: Z79.899 Other long term (current) drug therapy (principal)
CPT/HCPCS: 36415; 80164; 82140; 84146; 84450; 84460; 85049